=== PATIENT | male | born 1945 | race Caucasian/White ===

== ENCOUNTER 2016-10-12 20:29 | Emergency (ER) | payer MEDICARE, MEDICAID ==
[~2016-10-12] VITALS: Ht 177.8 cm; Wt 64.5 kg
[~2016-10-12 20:29] MED LIST: (None)3.5 GM OP; AMITRIPTYLIN100 MG OR; AMITRIPTYLIN100 MG PO; AMLODIPINE BESYL5 MG PO; AMLODIPINE10 MG PO; AVELOX400 MG OR; AZITHROMYCIN500 MG PO; BABY ASPIRIN81 MG OR; BACTRIM DS1 TAB PO; BACTROBAN2 % EX; BC FAST PAI1 OR; CIPRO500 MG PO; CIPROFLOXACN500 MG PO; CLARITHROMYC500 M1 PO; COMBIVENT IN; DIOVAN HCT160 MG/25 OR; DOXYCYCL HYC100 M4 PO; DUONEB IN; FLEXERIL OR; FLEXERIL PO; FLUZONE SPLT1 M1 IM; GENTAMICIN15 ML/BTL OP; LEVAQUIN750 MG PO; LORTAB 10-325 M1 TAB PO; LORTAB5 PO; LOVASTATIN40 MG PO; MILK OF MAG30 ML/UDC PO; MIRALAX3350 N1 PO; MOTRIN800 MG PO; MUCINEX600 MG PO; NAPROSYN500 MG OR; NAPROSYN500 MG PO; NAPROXEN500 MG PO; OMEPRAZOLE20 MG PO; ORPHENADRINE100 MG OR; OXY1; OXYCODONE5 M1 OR; PREDNISONE10 MG PO; PREDNISONE20 MG PO; PREVACID30 M1 OR; PRILOSEC20 MG OR; PRILOSEC20 MG PO; PRILOSEC20 MG/CAP PO; PROAIR HFA IN; SIMVASTATIN40 MG PO; TRAMADOL HCL50 MG PO; ULTRAM50 M1 PO; ZITHROMAX500 MG PO; ZOCOR20 MG OR; ZOFRAN ODT8 MG OR; ZPAK PO
[2016-10-12] MEDS ORDERED: AMLODIPINE5 MG PO (21:01)
[2016-10-12] MEDS ORDERED: PROAIR HFA IN (21:02)
[2016-10-12] MEDS ORDERED: PERCOCET 5/325M1 TAB PO (22:21)
[2016-10-12 22:29] VITALS: BP 122/85
== END 2016-10-12 22:29 | disposition home or self-care (01) ==
LOC: ED 20:29
DX: S96.912A Strain of unspecified muscle and tendon at ankle and foot level, left foot, initial encounter (principal); S90.512A Abrasion, left ankle, initial encounter; M79.672 Pain in left foot; W10.8XXA Fall (on) (from) other stairs and steps, initial encounter; Y92.009 Unspecified place in unspecified non-institutional (private) residence as the place of occurrence of the external cause; R22.41 Localized swelling, mass and lump, right lower limb

== ENCOUNTER 2017-05-13 11:18 | Day surgery (SDC) | payer MEDICARE, MEDICAID ==
[~2017-05-13] VITALS: Ht 177.8 cm; Wt 66.7 kg
[~2017-05-13 11:18] MED LIST changes: +AMLODIPINE5 MG PO; +PERCOCET 5/325M1 TAB PO; +[UNRECOGNIZED DRUG - REMARK]
[2017-05-13] MEDS ORDERED: LOVASTATIN40 M1 PO (13:31)
[2017-05-13] MEDS ORDERED: AMLODIPINE5 MG PO (13:31)
[2017-05-13 16:48] VITALS: BP 153/69
== END 2017-05-13 16:40 | disposition home or self-care (01) ==
LOC: ENDO 11:18 → ORM 11:18
PROVIDERS: ATTEND Internal Medicine Gastroenterology
PROC: 0DJD8ZZ Inspection of Lower Intestinal Tract, Via Natural or Artificial Opening Endoscopic (ICD-10-PCS; principal; 2017-05-13)
DX: Z12.11 Encounter for screening for malignant neoplasm of colon (principal); K64.4 Residual hemorrhoidal skin tags; K57.30 Diverticulosis of large intestine without perforation or abscess without bleeding; Q43.8 Other specified congenital malformations of intestine; I86.8 Varicose veins of other specified sites; K64.8 Other hemorrhoids; I10 Essential (primary) hypertension; I25.10 Atherosclerotic heart disease of native coronary artery without angina pectoris; E78.00 Pure hypercholesterolemia, unspecified; C91.10 Chronic lymphocytic leukemia of B-cell type not having achieved remission; I25.2 Old myocardial infarction; Z95.5 Presence of coronary angioplasty implant and graft; Z80.0 Family history of malignant neoplasm of digestive organs

== ENCOUNTER 2017-10-12 06:16 | Inpatient (IN) | payer MEDICARE, MEDICAID ==
[2017-10-12] VITALS (8 sets, daily range): BP systolic 122–156; BP diastolic 64–77
[~2017-10-12] VITALS: Ht 177.8 cm; Wt 64.0 kg
[~2017-10-12 06:16] MED LIST changes: +BC HEADACH1 PO; +EC ASPIRIN325 MG PO; +LOVASTATIN40 M1 PO
--- NOTE | 2017-10-12 06:20 | NUR ---
RECEIVED VIA EMS, C/O SOB.
[2017-10-12] MEDS ORDERED: NORVASC PO (06:34)
--- NOTE | 2017-10-12 06:46 | NUR ---
RESP AT BEDSIDE.
--- NOTE | 2017-10-12 06:49 | NUR ---
PORT CXR TAKEN.
[2017-10-12 06:52] LABS: BASO% 0 % (0-3); EOS% 0 % (0-8); HEMATOCRIT 42.1 % (39.0-50.0); IMMATURE GRANULOCYTES 0.2 % (0.0-1.0); MEAN CORPUSCULAR HGB 29.1 pG CALC (26.0-32.0); NEUT# 6.67 thou/uL (1.82-7.42); RED BLOOD COUNT 4.05 mill/uL (4.70-6.10); RED CELL DISTRI WIDTH 19.8 % (11.5-15.5)
--- NOTE | 2017-10-12 06:58 | NUR ---
RESP AT BEDSIDE, PLACING PT ON BI-PAP
--- NOTE | 2017-10-12 07:00 | NUR ---
REPORT TO NICOLE RIZZO.
[2017-10-12 07:09] LABS: ALBUMIN 4.1 g/dL (3.2-5.0); ALKALINE PHOSPHATASE 94 u/l (38-126); BILIRUBIN, TOTAL 0.4 mg/dL (0.0-1.4); BUN 12 mg/dL (8-23); BUN/CREATININE RATIO 23 (12-20 (CALC)); CHLORIDE 96 mmol/l (95-108); CREATININE 0.5 mg/dL (0.7-1.3); GFR > 60 ML/MIN (>=60 (CALC)); GFR FOR AFR.AMER. > 60 ML/MIN (>=60 (CALC)); POTASSIUM 4.9 mmol/l (3.5-5.1); SGOT/AST 44 u/l (19-48); SGPT/ALT 34 u/l (11-66); SODIUM 145 mmol/l (137-146); TOTAL PROTEIN 7.3 g/dL (6.3-8.2)
[2017-10-12 07:11] LABS: HEMOGLOBIN 11.8 g/dl (14.0-18.0)
--- NOTE | 2017-10-12 07:13 | NUR ---
PT CALM AND QUIET, RESP EVEN AND UNLABORED ON BIPAP MASK, LAB AT BEDSIDE FOR BC 2ND SET. NO COMPLAINTS INDICATED BY PT, AWAKENS EASILY TO VOICE AND RESPONDS APPROPRIATELY TO QUESTIONS WITH ORIENTATION X 3
[2017-10-12 07:15] LABS: ANION GAP 15 (6-22 (CALC)); CARBON DIOXIDE 39 mmol/l (22-30)
[2017-10-12 07:21] LABS: MYOGLOBIN 37 ng/mL (0 - 121)
[2017-10-12 07:22] LABS: PLATELET COUNT 144 thou/uL (130-400)
[2017-10-12 07:23] LABS: MANUAL DIFFERENTIAL YES
[2017-10-12 07:37] LABS: IMMATURE CELLS 10 %; PLATELET ESTIMATE NORMAL
--- NOTE | 2017-10-12 07:56 | NUR ---
AWAITING BED ASSIGNMENT, NO ACUTE CHANGE IN PT CONDITION, MACKENZIE BIPAP WELL AT THIS TIME.
[2017-10-12 08:02] LABS: INFLUENZA A POSITIVE (NONE DETECT); INFLUENZA B NONE DETECTED (NONE DETECT)
--- NOTE | 2017-10-12 08:16 | NUR ---
ATTEMPTED REPORT TO ICU, AWAITING RETURN CALL
--- NOTE | 2017-10-12 08:44 | NUR ---
Admission Note Report Given to: Asaf rn Transported by: Wheelchair x Stretcher Transported with: x Nurse Transporter x Patent IV x O2 x Ux Ui Designer
[2017-10-12 08:48] LABS: URINE BILIRUBIN - DIPSTICK NEGATIVE (NEGATIVE); URINE BLOOD DIPSTICK NEGATIVE (NEGATIVE); URINE COLOR YELLOW; URINE GLUCOSE - DIPSTICK NEGATIVE (NEGATIVE); URINE KETONE NEGATIVE (NEGATIVE); URINE LEUK ESTERASE NEGATIVE (NEGATIVE); URINE NITRITE - DIPSTICK NEGATIVE (Negative); URINE PROTEIN - DIPSTICK TRACE mg/dL (NEG-TRACE); URINE SPECIFIC GRAVITY >=1.030; URINE UROBILINOGEN - DIPSTICK 0.2 E.U./dL (0.2)
[2017-10-12 08:50] LABS: URINE CLARITY CLEAR
--- NOTE | 2017-10-12 09:00 | NUR ---
PT ARRIVES TO ICU-5 FROM ER, ACCOMPANIED BY NICOLE RIZZO.
--- NOTE | 2017-10-12 10:26 | NUR ---
RECEIVED REPORT FROM TEOFILO TO TAKE OVER PT CARE
--- NOTE | 2017-10-12 10:30 | NUR ---
PT REMAINS ON BIPAP WITH FIO2 OF 35%, RESTING WITH EYES CLOSED, AROUSES EASILY TO VERBAL STIMULI, REMINDED TO CALL FOR ASSISTANCE, CALL EVANS WITHIN REACH
--- NOTE | 2017-10-12 11:33 | NUR ---
PT LAYING IN BED RESTING WITH EYES CLOSED, AROUSES EASILY TO VERBAL STIMULI, BIPAP REMAINS ON PT WITH FI02 AT 35%, PT REMINDED TO CALL FOR ASSISTANCE, CALL EVANS WITHIN REACH
--- NOTE | 2017-10-12 12:35 | NUR ---
PT SITTING UP ON THE SIDE OF THE BED USING THE URINAL, NO S/S OF DISTRESS, PT REMAINS, ON BIPAP
--- NOTE | 2017-10-12 13:45 | NUR ---
PT LAYING IN BED WATCHING TV, DENIES ANY SOB, REMAINS ON BIPAP, CALL EVANS WITHIN REACH
--- NOTE | 2017-10-12 14:45 | NUR ---
VISITORS ABOUT BEDSIDE
--- NOTE | 2017-10-12 14:50 | NUR ---
BROTHER AT BEDSIDE, PT SITTING UP ON THE SIDE OF THE BED TALKING TO HIM, BIPAP REMAINS ON FI02 35%, NO S/S OF DISTRESS, CALL EVANS WITHIN REACH
--- NOTE | 2017-10-12 17:05 | NUR ---
PT VERALIZED HE HAS A HEADACHE, MADE AWARE, ORDERS GIVEN
--- NOTE | 2017-10-12 17:45 | NUR ---
R.T. AT BEDSIDE GIVING PT A BREATHING TREATMENT
--- NOTE | 2017-10-12 19:30 | NUR ---
PT RESTING IN BED. PT IS ALERT AND ORIENTED X3. PERRLA. RESP ARE EVEN AND UNLABORED. SOB ON EXERTION. NO DISTRESS NOTED. WHEEZING NOTED THROUGHOUT LUNG ANTERIORLY AND POSTERIORLY ON INHALATION AND EXHALATION. RT INTO ROOM. PT TAKEN OFF OF BIPAP AT THIS TIME AND PLACE ON O2 5L NC HI FLOW. PT O2 SATS 95-97%. HR REGULAR. SR-ST ON MONITOR. PULSES PALPABLE THROUGHOUT. NO EDEMA NOTED. BS ACTIVE. PT VOIDING VIA URINAL. #18 LAC EMS SITE IN LAC. SALINE LOCKED. NO REDNESS OR EDEMA NOTED. CALL LIGHT IN REACH. WILL CONTINUE TO MONITOR
--- NOTE | 2017-10-12 22:22 | NUR ---
INTO PT ROOM. PT STATES THAT HE IS SOB. HE IS 94% ON MONITOR AND ABLE TO HAVE FULL CONVERSQATION WITHOUT DYSPNEA AT THIS TIME. PT DEMANDING THAT BIPAP BE PLACED BACK ON. BIPAP PLACED BACK ON PT AT THIS TIME.
--- NOTE | 2017-10-12 23:50 | NUR ---
INTO ROOM. PT SITTING UP ON SIDE OF BED STATING THAT HE CANNOT BREATHE. O2 SATS REMAIN 93-96% ON BIPAP. PT HAD REMOVED BIPAP. PT PLACED BACK ON BIPAP. PT APPEARS TO BE ANXIOUS. QUESTIONED HISTORY OF ANXIETY PT STATES THAT HE DOES NOT KNOW IF HE HAS ANXIETY. WILL CONTINUE TO MONITOR
[2017-10-13] VITALS (19 sets, daily range): BP systolic 106–157; BP diastolic 62–81
--- NOTE | 2017-10-13 00:10 | NUR ---
PT MEDICATED TO HELP SLEEP.
--- NOTE | 2017-10-13 02:00 | NUR ---
PT RESTING IN BED WITH EYES CLOSED. RESP ARE EVEN AND UNLABORED ON BIPAP. NO DISTRESS NOTED. WILL CONTINUE TO MONITOR
--- NOTE | 2017-10-13 04:00 | NUR ---
PT RESTING IN BED WITH EYES CLOSED. RESP ARE EVEN AND [id number]. NO DSITRESS NOTED. REMAINS ON BIPAP. WILL CONTINUE TO MONITOR
--- NOTE | 2017-10-13 04:31 | NUR ---
LAB INTO DRAW AM LABS
[2017-10-13 05:33] LABS: ANION GAP 15 (6-22 (CALC)); BUN 28 mg/dL (8-23); BUN/CREATININE RATIO 44 (12-20 (CALC)); CALCULATED LDLCHOLESTEROL 95 mg/dL (62-129 (CALC)); CHLORIDE 92 mmol/l (95-108); CHOLESTEROL HDL RATIO 4.6 (<4.4 (CALC)); CREATININE 0.6 mg/dL (0.7-1.3); GFR > 60 ML/MIN (>=60 (CALC)); GFR FOR AFR.AMER. > 60 ML/MIN (>=60 (CALC)); HDL CHOLESTEROL 30 mg/dL (>=40); POTASSIUM 4.3 mmol/l (3.5-5.1); SODIUM 143 mmol/l (137-146); TOTAL CHOLESTEROL 140 mg/dl (0-199); TOTAL TRIGLYCERIDES 72 mg/dl (30-149); VLDL CHOLESTROL 14 mg/dl (0-38 (CALC))
[2017-10-13 05:53] LABS: HEMATOCRIT 38.4 % (39.0-50.0); HEMOGLOBIN 11.2 g/dl (14.0-18.0); MEAN CELL VOLUME 100.5 fL CALC (80.0-100.0); MEAN CORPUSCULAR HGB 29.3 pG CALC (26.0-32.0); MEAN CORPUSCULAR HGB CONC 29.2 g/L CALC (32.0-36.0); RED BLOOD COUNT 3.82 mill/uL (4.70-6.10); RED CELL DISTRI WIDTH 19.5 % (11.5-15.5)
[2017-10-13 05:57] LABS: CARBON DIOXIDE 40 mmol/l (22-30)
--- NOTE | 2017-10-13 06:18 | NUR ---
PT RESTING IN BED WITH EYES CLOSED. AROUSES EASILY TO VERBAL STIMULI. RESP ARE EVEN AND UNLABORED. REMAINS ON BIPAP. NO DISTRESS NOTED. WILL CONTINUE TO MONITOR
--- NOTE | 2017-10-13 06:46 | NUR ---
NEB TX NOT GIVEN. DOSE PREVIOUSLY GIVEN.
--- NOTE | 2017-10-13 07:05 | NUR ---
PT LAYING IN BED RESTING WITH EYES CLOSED, AROUSES EASILY TO VERBAL STIMULI, A & O X3, PERRL, HR 78, RESP. 24, BP 155/73, O2 96% ON BIPAP FIO2 35%, LUNG SOUNDS DIMINISHED IN BASES WITH WHEEZES THROUGH OUT, STRONG RADIAL PULSES AND PEDAL PULSES, 18G LAC IV, SALINE LOCKED, NO REDNESS OR DRAINAGE AT SITE, AM ASSESSMENT COMPLETE, SEE INTERVENTIONS, SAFETY MEASURES REINFORCED, CALL EVANS WITHIN REACH
--- NOTE | 2017-10-13 07:20 | NUR ---
BIPAP REMOVED, PT PLACED ON 5L HIGH FLOW O2, PT REMINDED TO TAKE SLOW DEEP BREATHS, PT VERBALIZED UNDERSTANDING, WILL CONTINUE TO MONITOR PT CLOSELY
--- NOTE | 2017-10-13 07:40 | NUR ---
PT'S SATS 88% ON 5L HIGH FLOW O2, PT STATES "I CAN'T BREATH. I NEED THE MASK (BIPAP) BACK ON, PT ENCOURAGED TO TAKE SLOW DEEP BREATHS, PT CONTINUED TO ASK FOR THE BIPAP TO BE PUT BACK ON, BIPAP PUT ON PT PER PT REQUEST
--- NOTE | 2017-10-13 08:25 | NUR ---
PT SITTING ON THE SIDE OF THE BED USING THE URINAL, PT TOLERATING WELL, CALL EVANS WITHIN REACH
--- NOTE | 2017-10-13 09:56 | NUR ---
PT LAYING IN BED RESTING WITH EYES CLOSED, AROUSES EASILY TO VERBAL STIMULI, REMINDED TO CALL FOR ASSISTANCE, CALL EVANS WITHIN REACH
--- NOTE | 2017-10-13 10:30 | NUR ---
VISITOR AT BEDSIDE
--- NOTE | 2017-10-13 10:55 | NUR ---
PT OFF BIPAP ON 5L HIGH FLOW NC, WILL CONTINUE TO MONITOR CLOSELY
--- NOTE | 2017-10-13 11:30 | NUR ---
DR SANTIZO AT BEDSIDE DISCUSSING PLAN OF CARE
--- NOTE | 2017-10-13 11:45 | NUR ---
SETUP ASSISTANCE PROVIDED WITH LUNCH TRAY
--- NOTE | 2017-10-13 12:22 | NUR ---
PT SITTING ON THE SIDE OF THE BED, PT IS RESTLESS, REMINDED TO CALL FOR ASSISTANCE, CALL EVANS WITHIN REACH
--- NOTE | 2017-10-13 13:30 | NUR ---
DAUGHTER AT BEDSIDE, PT SITTING ON THE SIDE OF THE BED TALKING TO DAUGHTER, O2 SATS 94% ON 5L HIGH FLOW NC
--- NOTE | 2017-10-13 14:15 | NUR ---
PT TO RADIOLOGY VIA WC ACCOMPANIED BY A NURSE
--- NOTE | 2017-10-13 14:25 | NUR ---
PT RETURNED TO UNIT FROM RADIOLOGY VIA WC, PT TOLERATED WELL
--- NOTE | 2017-10-13 15:35 | NUR ---
PT STANDING AT THE SIDE OF THE BED USING URINAL, PT STEADY ON HIS FEET, CALL EVANS WITHIN REACH
--- NOTE | 2017-10-13 16:20 | NUR ---
PT SITTING ON THE SIDE OF THE BED, ASSISTED WITH CHANGING SHORTS, PT TOLERATED WELL, PT REMAINS ON 4L HIGH FLOW NC
--- NOTE | 2017-10-13 20:00 | NUR ---
PT RESTING IN BED WITH EYES CLOSED, RESPIRATIONS EVEN AND UNLABORED ON HIGH FLOW OXYGEN VIA NC 4L, O2 SAT 97%. RESPONDS EASILY TO VERBAL COMMAND, DENIES PAIN OR DISCOMFORT. TEMP 98.0, HR 87 SR, B/P126/62. ENCOURAGED TO USE CALL LIGHT FOR ASSISTANCE, WILL CONTINUE TO MONITOR.
--- NOTE | 2017-10-13 22:15 | NUR ---
O2 SAT DOWN TO 84-85% ON HIGH FLOW NC 4L, VENTI MASK 40% APPLIED BY MIKA RT, O2 SAT UP TO 91%, WILL CONTINUE TO MONITOR.
--- NOTE | 2017-10-13 22:34 | NUR ---
PATIENT'S NURSE CALLED BECAUSE OF PATIENT' SPO2 WAS DROPPING TO 83% WHILE HE WAS ON 5L HIGH FLOW NC TO ASSIST WITH HIS FLOW DEMAND. SWITCHED OXYGEN DEVICE TO A VENTI MASK WITH 40% FIO2. SPO2 WENT DOWN ALSO TO 83%. PLACE ON BIPAP WITH THE SAME SETTING THAT WAS ORDERD FOR HIM. SPO2 WENT UP TO 95% ON BIPAP WITH PRESSURE 20/10, RATE OT 22, AND 35% FIO2. WILL CONTINUE TO MONITOR THE PATIENT THROUGHTOUT THE SHIFT.
--- NOTE | 2017-10-13 22:35 | NUR ---
WHILE ON VENTI MASK, O2 SAT DROPPED TO 83%, MIKA RT NOTIFIED AND PLACED PT ON BIPAP FIO2 AT 35%, O2 SAT UP TO 95%. CALL LIGHT IN REACH, PT IS DROWSY ABLE TO STATE NAME AND . WILL CONTINUE TO MONITOR.
--- NOTE | 2017-10-13 23:18 | NUR ---
O2 SAT 96% ON BIPAP FIO2 35%. RESTING WITH EYES CLOSED. CALL LIGHT IN REACH.
[2017-10-14] VITALS (16 sets, daily range): BP systolic 109–163; BP diastolic 60–88
--- NOTE | 2017-10-14 01:26 | NUR ---
RESTING WITH EYES CLOSED ON RIGHT SIDE, RESPIRATIONS EVEN AND UNLABORED ON BIPAP FIO2 35%. CALL LIGHT IN REACH.
--- NOTE | 2017-10-14 03:07 | NUR ---
RESTING WITH EYES CLOSED ON RIGHT SIDE, RESPIRATIONS EVEN AND UNLABORED ON BIPAP FIO2 35%, O2 SAT 96%. CALL LIGHT IN REACH.
--- NOTE | 2017-10-14 04:30 | NUR ---
NEW IV SITE STARTED TO LAC #22, AND LABS DRAWN AT THIS TIME, TOLERATED WELL. PT SITTING ON SIDE OF BED REQUESTING BIPAP TO BE REMOVED, MIKA RT REMOVED BIPAP AND PLACED PT HIGH FLOW O2 AT 4L VIA NC, O2 SAT 96% AT THIS TIME, COFFEE PROVIDED PER PT REQUEST.
[2017-10-14 05:04] LABS: HEMATOCRIT 39.4 % (39.0-50.0); HEMOGLOBIN 11.4 g/dl (14.0-18.0); MEAN CELL VOLUME 98.5 fL CALC (80.0-100.0); MEAN CORPUSCULAR HGB 28.5 pG CALC (26.0-32.0); MEAN CORPUSCULAR HGB CONC 28.9 g/L CALC (32.0-36.0); RED CELL DISTRI WIDTH 19.6 % (11.5-15.5)
[2017-10-14 05:11] LABS: BUN 30 mg/dL (8-23); BUN/CREATININE RATIO 43 (12-20 (CALC)); CHLORIDE 92 mmol/l (95-108); CREATININE 0.7 mg/dL (0.7-1.3); GFR > 60 ML/MIN (>=60 (CALC)); GFR FOR AFR.AMER. > 60 ML/MIN (>=60 (CALC)); MAGNESIUM 2.3 mg/dL (1.6-2.3); POTASSIUM 4.1 mmol/l (3.5-5.1); SODIUM 143 mmol/l (137-146)
[2017-10-14 05:17] LABS: ANION GAP 16 (6-22 (CALC)); CARBON DIOXIDE 39 mmol/l (22-30)
--- NOTE | 2017-10-14 07:02 | NUR ---
RECVD REPORT FROM PM NURSE. INTRODUCED SELF TO PT. PT AWAKE IN BED, DRINKING COFFEE. PT PREFERS TO USE URINAL. PT GIVEN A CUP FOR SPUTUM SAMPLE. BREATHING EVEN/UNLABORED. CRACKLES & WHEEZES THROUGHOUT LUNGS. PT TALKING/MOVING W/OUT ISSUE. DENIES PAIN. ONLY SKIN ABNORMALITY IS BRUISING BILATERAL ARMS. PT ON 4L HUMIDIFIED NC, STATES HE USES 3L NC AT HOME. PT OFF BIPAP FROM NIGHT BEFORE MY ARRIVAL DUE TO LOW O2 WHILE SLEEPING. ABD SOFT/NONTENDER, ACTIVE BS. PT A&Ox4. EYES PERRLA. NEURO WNL.
--- NOTE | 2017-10-14 07:57 | NUR ---
PT SITTING UP ON BEDSIDE EATING BREAKFAST. SPUTUM SAMPLE COLLECTED FOR LAB. PT HAS DEEP, WET, COUGH.
--- NOTE | 2017-10-14 09:15 | NUR ---
PT @ BEDSIDE FOR NEB TREATMENT. PT HAS 2 VISITORS @ BEDSIDE, WEARING MASKS.
--- NOTE | 2017-10-14 10:09 | NUR ---
TAURUS FROM CASE MANAGEMENT @ BEDSIDE. PT HAS 1 VISITOR.
--- NOTE | 2017-10-14 11:09 | NUR ---
PT REQUESTING PAIN MED FOR HEADACHE & COUGH MEDICINE FOR COUGH. MD AWARE.
--- NOTE | 2017-10-14 11:27 | NUR ---
MRSA CULTURE SENT TO LAB. PT MEDICATED FOR ESCOBEDO & COUGH. PT DENIES ADDITIONAL REQUESTS/CONCERNS AT THIS TIME.
--- NOTE | 2017-10-14 11:52 | NUR ---
PT UP TO SIDE OF BED, EATING LUNCH.
--- NOTE | 2017-10-14 15:18 | NUR ---
RT CALLED FOR O2 STATES BOUNCING BETWEEN 86%-90%. PT PLACED ON BIPAP.
--- NOTE | 2017-10-14 16:13 | NUR ---
PT SLEEPING COMFORTABLY IN BED, ON BIPAP MACHINE.
--- NOTE | 2017-10-14 17:28 | NUR ---
PT OFF BIPAP AFTER NEB TREATMENT. PT UP ON BEDSIDE EATING DINNER.
--- NOTE | 2017-10-14 18:57 | NUR ---
PT IN BED A/OX3 RESPIRATIONS EVEN AND UNLABORED ON HIGH FLOW O2 @4L VIA NC, O2 SAT 96%. DENIES PAIN OR DISCOMFORT. HEART MONITOR SR 88, B/P 153/88 TEMP 98.3. ENCOURAGED TO USE CALL LIGHT FOR ASSISTANCE, WILL CONTINUE TO MONITOR. URINAL AT BED SIDE.
--- NOTE | 2017-10-14 22:20 | NUR ---
RESTING IN SEMIFOWLERS WITH EYES CLOSED, RESPIRAITONS EVEN AND UNLABORED ON HIGH FLOW OXYGEN AT 4L VIA NC, O2 SAT 97% AT THIS TIME. CALL LIGHT IN REACH, WILL CONTINUE TO MONITOR.
[2017-10-15] VITALS (11 sets, daily range): BP systolic 114–148; BP diastolic 60–85
--- NOTE | 2017-10-15 | NUR ---
RESTING WITH EYES CLOSED, RESPONDS EASILY TO VERBAL COMMAND, SOLUMEDROL PROVIDED IV PER SEP, PT THEN SITTING ON SIDE OF BED REQUESTING A SNACK, DANIELA CAMPOVERDE AND JAYSON PROVIDED FEEDING HIMSELF WITH NO PROBLEM, RESPIRATIONS EVEN AND UNLABORED ON O2 @4L HIGH FLOW, O2 SAT 98%. CALL LIGHT IN REACH.
--- NOTE | 2017-10-15 02:10 | NUR ---
RESTING WITH EYES CLOSED, RESPIRATIONS EVEN AND UNLABORED ON O2 @4L HIGH FLOW O2 SAT 94%. CALL LIGHT IN REACH.
--- NOTE | 2017-10-15 04:21 | NUR ---
SITTING ON SIDE OF BED, COFFEE PROVIDED PER PT REQUEST, RESPIRATIONS EVEN AND UNLABORED ON HIGH FLOW OXYGEN AT 4L VIA NC, O2 SAT 91%. CALL LIGHT IN REACH.
--- NOTE | 2017-10-15 05:15 | NUR ---
MIKA RT DECREASED OXYGEN TO 2L VIA HIGHFLOW NC, O2 SAT 93%.
--- NOTE | 2017-10-15 07:05 | NUR ---
PT SITTING ON THE SIDE OF THE BED, TOLERATING WELL, PT VERBALIZES NO COMPLAINTS, HR 68, RESP. 20, BP 146/72, O2 93% ON 2L HIGH FLOW NC, COARSE LUNGS SOUNDS WITH WHEEZES THROUGH OUT, 22G RAC IV, SALINE LOCKED, NO REDNESS OR DRAINAGE AT SITE, STRONG RADIAL AND PEDAL PULSES, AM ASSESSMENT COMPLETE, SEE INTERVENTIONS, SAFETY MEASURES REINFORCED, CALL EVANS WITHIN REACH
--- NOTE | 2017-10-15 07:30 | NUR ---
SETUP ASSISTANCE PROVIDED WITH AM MEAL TRATolu
--- NOTE | 2017-10-15 08:20 | NUR ---
PT LAYING IN BED RESTING WITH EYES CLOSED, AROUSES EASILY TO VERBAL STIMULI, NO S/S OF DISTRESS, CALL EVANS WITHIN REACH
--- NOTE | 2017-10-15 09:45 | NUR ---
VISITORS AT BEDSIDE
--- NOTE | 2017-10-15 11:30 | NUR ---
SETUP ASSSITANCE PROVIDED WITH LUNCH
--- NOTE | 2017-10-15 12:10 | NUR ---
PT SITTING ON THE SIDE OF THE BED, TOLERATING WELL, PT VERBALIZES NO COMPLAINTS, O2 SATS 93% ON 2L HIGH FLOW NC, REMINDED TO CALL FOR ASSISTANCE, CALL EVANS WITHIN REACH
--- NOTE | 2017-10-15 13:20 | NUR ---
R.T. AT BEDSIDE GIVING A BREATHING TREATMENT
--- NOTE | 2017-10-15 14:35 | NUR ---
PT TALKING ON THE PORTABLE PHONE,NO S/S OF DISTRESS, CALL EVANS WITHIN REACH
--- NOTE | 2017-10-15 16:35 | NUR ---
PT LAYING IN BED, WATCHING TV, PT OFFERED TO GET SETUP TO GET WASHED, PT REFUSED, REMINDED TO CALL FOR ASSISTANCE, CALL EVANS WITHIN REACH
--- NOTE | 2017-10-15 16:50 | NUR ---
DR BRANDT AT BEDSIDE DISCUSSING PLAN OF CARE
--- NOTE | 2017-10-15 19:10 | NUR ---
awake. denies resp diff. o2 cont per nc. cardiac specialist shows sinus rhythm pvcs. #22 rac saline lock. po fluids taken well. voids per urinal. fall precautions cont.
--- NOTE | 2017-10-15 21:20 | NUR ---
restoril 15mg po given per request for sleep.
--- NOTE | 2017-10-15 22:00 | NUR ---
snack given per request.
[2017-10-16] VITALS (14 sets, daily range): BP systolic 98–155; BP diastolic 57–86
--- NOTE | 2017-10-16 00:01 | NUR ---
awakens easily. no distress. cardiac technologist shows sinus rhythm.
--- NOTE | 2017-10-16 02:00 | NUR ---
eyes closed. resps even & unlabored. no apparent distress.
--- NOTE | 2017-10-16 04:00 | NUR ---
eyes closed. no resp distress. o2 cont.
--- NOTE | 2017-10-16 06:07 | NUR ---
sitting on side of bed drinking coffee. denies c/o.
--- NOTE | 2017-10-16 07:10 | NUR ---
PT SITTING ON THE SIDE OF THE BED, TOLERATING WELL, PT DENIES ANY SOB OR PAIN, A & O X3, PERRL, HR 70, RESP. 20, BP 135/60, O2 95% ON 2L VIA HIGH FLOW NC, WHEEZES THROUGH OUT LUNGS, 22G RAC IV, SALINE LOCKED, NO REDNESS OR DRAINAGE AT SITE, STRONG RADIAL AND PEDAL PULSES, ACTIVE BOWEL MOVEMENTS, AM ASSESSMENT COMPLETE, SEE INTERVENTIONS, SAFETY MEASURES REINFORCED, CALL EVANS WITHIN REACH
--- NOTE | 2017-10-16 07:30 | NUR ---
SETUP ASSISTANCE PROVIDED WITH SELENA MCGREGOR
--- NOTE | 2017-10-16 08:10 | NUR ---
PT LAYING IN BED RESTING WITH EYES CLOSED, AROUSES EASILY TO VERBAL STIMULI, NO S/S OF DISTRESS, CALL EVANS WITHIN REACH
--- NOTE | 2017-10-16 09:25 | NUR ---
VISITORS AT BEDSIDE
--- NOTE | 2017-10-16 10:35 | NUR ---
PT STANDING AT THE SIDE OF THE BED USING THE URINAL, PT IS STEADY ON HIS FEET, TOLERATING WELL, REMINDED TO CALL FOR ASSISTANCE, CALL EVANS WITHIN REACH
--- NOTE | 2017-10-16 11:35 | NUR ---
SETUP ASSISTANCE PROVIDED WITH LUNCH
--- NOTE | 2017-10-16 12:10 | NUR ---
PT SITTING ON THE SIDE OF THE BED WATCHING TV, VERBALIZES NO COMPLAINS, CALL EVANS WITHIN REACH
--- NOTE | 2017-10-16 14:40 | NUR ---
PT SITTING UP ON THE SIDE OF THE BED, VERBALIZES NO COMPLAINTS, 2 CUPS OF COFFEE PROVIDED PER PT REQUEST, REMINDED TO CALL FOR ASSISTANCE, CALL EVANS WITHIN REACH
[2017-10-16 16:25] LABS: HEMATOCRIT 41.7 % (39.0-50.0); HEMOGLOBIN 11.5 g/dl (14.0-18.0); IMMATURE GRANULOCYTES 0.2 % (0.0-1.0); MEAN CELL VOLUME 99.8 fL CALC (80.0-100.0); MEAN CORPUSCULAR HGB 27.5 pG CALC (26.0-32.0); MEAN CORPUSCULAR HGB CONC 27.6 g/L CALC (32.0-36.0); PLATELET COUNT 148 thou/uL (130-400); RED BLOOD COUNT 4.18 mill/uL (4.70-6.10); RED CELL DISTRI WIDTH 20.7 % (11.5-15.5)
--- NOTE | 2017-10-16 16:35 | NUR ---
KE FISH BAIT PROCESSING SUPERVISOR AT BEDSIDE DISCUSSING PLAN OF CARE
[2017-10-16 16:46] LABS: ALBUMIN 4.3 g/dL (3.2-5.0); ALKALINE PHOSPHATASE 71 u/l (38-126); ANION GAP 17 (6-22 (CALC)); BILIRUBIN, TOTAL 0.6 mg/dL (0.0-1.4); BUN 21 mg/dL (8-23); BUN/CREATININE RATIO 34 (12-20 (CALC)); CARBON DIOXIDE 36 mmol/l (22-30); CHLORIDE 93 mmol/l (95-108); CREATININE 0.6 mg/dL (0.7-1.3); GFR > 60 ML/MIN (>=60 (CALC)); GFR FOR AFR.AMER. > 60 ML/MIN (>=60 (CALC)); POTASSIUM 4.5 mmol/l (3.5-5.1); SGOT/AST 19 u/l (19-48); SGPT/ALT 30 u/l (11-66); SODIUM 141 mmol/l (137-146)
--- NOTE | 2017-10-16 17:30 | NUR ---
VISITOR AT BEDSIDE, SETUP ASSISTANCE PROVIDED WITH PM MEAL, CALL EVANS WITHIN REACH
[2017-10-16 17:37] LABS: MANUAL DIFFERENTIAL YES
--- NOTE | 2017-10-16 19:10 | NUR ---
awake. denies resp distress. o2 cont per nc. threat monitoring analyst shows sinus rhythm. #22 rac saline lock. po fluids taken well. voids per urinal. fall precautions cont.
--- NOTE | 2017-10-16 22:00 | NUR ---
watching tv. no resp diff. no c/o voiced.
[2017-10-17 00:01] VITALS: BP 134/77
--- NOTE | 2017-10-17 00:01 | NUR ---
eyes closed. no distress. ekg monitor shows sinus rhythm.
[2017-10-17 02:00] VITALS: BP 122/71
--- NOTE | 2017-10-17 02:00 | NUR ---
resting quietly. resps even & unlabored. o2 cont.
[2017-10-17 04:00] VITALS: BP 114/56
--- NOTE | 2017-10-17 04:00 | NUR ---
awake. sitting on side of bed. denies c/o. no bm.
--- NOTE | 2017-10-17 04:50 | NUR ---
lab here. blood drawn.
[2017-10-17 05:23] LABS: BASO% 0 % (0-3); EOS% 0 % (0-8); HEMATOCRIT 39.5 % (39.0-50.0); HEMOGLOBIN 11.4 g/dl (14.0-18.0); IMMATURE GRANULOCYTES 0.2 % (0.0-1.0); LYMPH% 96 % (15-41); MEAN CORPUSCULAR HGB 28.6 pG CALC (26.0-32.0); MEAN CORPUSCULAR HGB CONC 28.9 g/L CALC (32.0-36.0); MONO% 1 % (2-13); NEUT# 6.12 thou/uL (1.82-7.42); NEUT% 3 % (42-76); PLATELET COUNT 136 thou/uL (130-400); RED BLOOD COUNT 3.99 mill/uL (4.70-6.10); RED CELL DISTRI WIDTH 20.1 % (11.5-15.5)
[2017-10-17 05:25] LABS: MANUAL DIFFERENTIAL YES
[2017-10-17 05:39] LABS: ALBUMIN 3.9 g/dL (3.2-5.0); ALKALINE PHOSPHATASE 64 u/l (38-126); ANION GAP 13 (6-22 (CALC)); BILIRUBIN, TOTAL 0.6 mg/dL (0.0-1.4); BUN 20 mg/dL (8-23); BUN/CREATININE RATIO 33 (12-20 (CALC)); CARBON DIOXIDE 39 mmol/l (22-30); CHLORIDE 92 mmol/l (95-108); CREATININE 0.6 mg/dL (0.7-1.3); GFR > 60 ML/MIN (>=60 (CALC)); GFR FOR AFR.AMER. > 60 ML/MIN (>=60 (CALC)); POTASSIUM 4.6 mmol/l (3.5-5.1); SGOT/AST 19 u/l (19-48); SGPT/ALT 29 u/l (11-66); SODIUM 139 mmol/l (137-146); TOTAL PROTEIN 6.6 g/dL (6.3-8.2)
[2017-10-17 06:00] VITALS: BP 137/78
--- NOTE | 2017-10-17 07:05 | NUR ---
PT SITTING UP IN THE BED WATCHING TV, VERBALIZES NO COMPLAINTS, A & O X3, PERRL, HR 78, RESP. 20, BP 133/89, O2 96% ON 3L HIGH FLOW NC, CLEAR LUNG SOUNDS IN THE RUL & DEVAN, CRACKLES IN THE RML, RLL, & LLL, STRONG RADIAL & PEDAL, 22 G RAC IV, SALINE LOCKED, NO REDNESS OR DRAINAGE AT SITE, AM ASSESSMENT COMPLETE, SEE INTERVENTIONS, SAFETY MEASURES REINFORCED, CALL EVANS WITHIN REACH
--- NOTE | 2017-10-17 07:30 | NUR ---
SETUP ASSISTANCE PROVIDED WITH SELENA MCGREGOR
--- NOTE | 2017-10-17 08:20 | NUR ---
PT SETTING UP ON THE SIDE OF THE BED, TOLERATING WELL, VERBALIZES NO COMPLAINTS, CALL EVANS WITHIN REACH
[2017-10-17 08:26] VITALS: BP 119/77
--- NOTE | 2017-10-17 09:05 | NUR ---
DR SANTIZO AT BEDSIDE DISCUSSING PLAN OF CARE AND POSSIBLE DISCHARGE
[2017-10-17] MEDS ORDERED: LEVAQUIN750 MG PO (09:09)
[2017-10-17] MEDS ORDERED: IPRATROPIU0.5 MG/3 M NEB (09:09)
[2017-10-17] MEDS ORDERED: PREDNISONE10 MG PO (09:09)
--- NOTE | 2017-10-17 10:35 | NUR ---
Discharge instructions given. Patient verbalizes understanding of same. Discharged in stable condition via Wheelchair to Home with family. All belongings sent with pt.
[2017-10-17 13:31] LABS: BAND 0 % (0-8)
== END 2017-10-17 10:35 | disposition home or self-care (01) | DRG 193 ==
LOC: ED 06:16 → ED-I 07:33 → ED 07:49 → ICU 07:50
PROVIDERS: Emergency Medicine; Hospitalist; Nurse Practitioner Family; ADMIT Internal Medicine; ATTEND Internal Medicine
PROC: 5A09457 Assistance with Respiratory Ventilation, 24-96 Consecutive Hours, Continuous Positive Airway Pressure (ICD-10-PCS; principal; 2017-10-12)
DX: J10.1 Influenza due to other identified influenza virus with other respiratory manifestations (principal); J96.21 Acute and chronic respiratory failure with hypoxia; C91.10 Chronic lymphocytic leukemia of B-cell type not having achieved remission; J96.22 Acute and chronic respiratory failure with hypercapnia; J44.1 Chronic obstructive pulmonary disease with (acute) exacerbation; Z99.81 Dependence on supplemental oxygen; F17.210 Nicotine dependence, cigarettes, uncomplicated; K59.00 Constipation, unspecified; F41.9 Anxiety disorder, unspecified
CPT/HCPCS: Q9967

== ENCOUNTER 2017-11-18 14:49 | Emergency (ER) | payer MEDICARE, MEDICAID ==
[~2017-11-18] VITALS: Ht 177.8 cm; Wt 63.6 kg
[~2017-11-18 14:49] MED LIST changes: +IPRATROPIU0.5 MG/3 M NEB; +NORVASC PO
[2017-11-18 15:36] VITALS: BP 103/66
== END 2017-11-18 15:36 | disposition home or self-care (01) ==
LOC: ED 14:49
DX: C95.90 Leukemia, unspecified not having achieved remission (principal); S40.021A Contusion of right upper arm, initial encounter; I11.9 Hypertensive heart disease without heart failure; F17.210 Nicotine dependence, cigarettes, uncomplicated; W10.9XXA Fall (on) (from) unspecified stairs and steps, initial encounter; Y92.009 Unspecified place in unspecified non-institutional (private) residence as the place of occurrence of the external cause; Z99.81 Dependence on supplemental oxygen

== ENCOUNTER 2018-11-22 14:19 | Emergency (ER) | payer MEDICARE, MEDICAID ==
[~2018-11-22] VITALS: Ht 177.8 cm; Wt 63.6 kg
[2018-11-22] MEDS ORDERED: PERMETHRIN5 % EX (14:41)
[2018-11-22] MEDS ORDERED: ALL DAY10 MG PO (14:41)
[2018-11-22 14:46] VITALS: BP 140/84
== END 2018-11-22 14:57 | disposition home or self-care (01) ==
LOC: ED 14:19
DX: B86 Scabies (principal); I10 Essential (primary) hypertension; F17.210 Nicotine dependence, cigarettes, uncomplicated

== ENCOUNTER 2019-01-11 16:46 | Observation (INO) | payer MEDICARE, MEDICAID ==
[~2019-01-11] VITALS: Ht 177.8 cm; Wt 67.7 kg
[~2019-01-11 16:46] MED LIST changes: +ALL DAY10 MG PO; +PERMETHRIN5 % EX
[2019-01-11 17:22] LABS: HEMATOCRIT 42.8 % (39.0-50.0); IMMATURE GRANULOCYTES 0.6 % (0.0-5.0); MEAN CELL VOLUME 94.7 fL CALC (80.0-100.0); MEAN CORPUSCULAR HGB CONC 32.7 g/L CALC (32.0-36.0); NEUT# 1.09 thou/uL (1.82-7.42); RED BLOOD COUNT 4.52 mill/uL (4.70-6.10); RED CELL DISTRI WIDTH 13.4 % (11.5-15.5)
[2019-01-11 17:45] LABS: GFR > 60 ML/MIN (>=60 (CALC)); GFR FOR AFR.AMER. > 60 ML/MIN (>=60 (CALC))
[2019-01-11 17:53] LABS: ALBUMIN 4.1 g/dL (3.2-5.0); ALKALINE PHOSPHATASE 61 u/l (38-126); ANION GAP 14 (6-22 (CALC)); BILIRUBIN, TOTAL 0.5 mg/dL (0.0-1.4); BUN 15 mg/dL (8-23); BUN/CREATININE RATIO 27 (12-20 (CALC)); CARBON DIOXIDE 32 mmol/l (22-30); CHLORIDE 99 mmol/l (95-108); CREATININE 0.5 mg/dL (0.7-1.3); GFR > 60 ML/MIN (>=60 (CALC)); GFR FOR AFR.AMER. > 60 ML/MIN (>=60 (CALC)); POTASSIUM 4.5 mmol/l (3.5-5.1); SGOT/AST 22 u/l (19-48); SODIUM 140 mmol/l (137-146); TOTAL PROTEIN 6.6 g/dL (6.3-8.2)
[2019-01-11 20:12] LABS: URINE BILIRUBIN - DIPSTICK NEGATIVE (NEGATIVE); URINE BLOOD DIPSTICK NEGATIVE (NEGATIVE); URINE COLOR YELLOW; URINE GLUCOSE - DIPSTICK NEGATIVE (NEGATIVE); URINE KETONE NEGATIVE (NEGATIVE); URINE LEUK ESTERASE NEGATIVE (NEGATIVE); URINE NITRITE - DIPSTICK NEGATIVE (Negative); URINE PH 6.5 (4.5-8.0); URINE PROTEIN - DIPSTICK NEGATIVE (NEG-TRACE); URINE SPECIFIC GRAVITY <=1.005; URINE UROBILINOGEN - DIPSTICK 0.2 E.U./dL (0.2)
[2019-01-11 21:00] VITALS: BP 125/76
[2019-01-12 00:05] VITALS: BP 147/75
[2019-01-12 04:30] VITALS: BP 150/78
[2019-01-12 07:39] VITALS: BP 118/71
[2019-01-12 07:42] VITALS: BP 118/71
== END 2019-01-12 11:00 | disposition left against medical advice (07) ==
LOC: ED 16:46 → ED-I 19:50 → ED 20:05 → MS2 20:06
PROVIDERS: Family Medicine; ADMIT Internal Medicine; ATTEND Internal Medicine
PROC: 009U3ZX Drainage of Spinal Canal, Percutaneous Approach, Diagnostic (ICD-10-PCS; principal; 2019-01-11)
DX: R05 Cough (principal); R50.9 Fever, unspecified; R91.8 Other nonspecific abnormal finding of lung field; M54.2 Cervicalgia; J44.0 Chronic obstructive pulmonary disease with (acute) lower respiratory infection; I10 Essential (primary) hypertension; C91.10 Chronic lymphocytic leukemia of B-cell type not having achieved remission; I25.10 Atherosclerotic heart disease of native coronary artery without angina pectoris; F17.210 Nicotine dependence, cigarettes, uncomplicated; Z99.81 Dependence on supplemental oxygen
CPT/HCPCS: Q9967

== ENCOUNTER 2019-03-23 16:00 | Emergency (ER) | payer MEDICARE, MEDICAID ==
[~2019-03-23] VITALS: Ht 177.8 cm; Wt 67.3 kg
[2019-03-23] MEDS ORDERED: CEPHALEXIN500 M1 PO (16:27)
[2019-03-23 16:36] VITALS: BP 154/82
== END 2019-03-23 16:37 | disposition home or self-care (01) ==
LOC: ED 16:00
DX: L03.115 Cellulitis of right lower limb (principal); I10 Essential (primary) hypertension; F17.210 Nicotine dependence, cigarettes, uncomplicated

== ENCOUNTER 2019-07-05 10:08 | Inpatient (IN) | payer MEDICARE, MEDICAID ==
[~2019-07-05] VITALS: Ht 177.8 cm; Wt 65.4 kg
[~2019-07-05 10:08] MED LIST changes: +CEPHALEXIN500 M1 PO
--- NOTE | 2019-07-05 10:10 | NUR ---
PT TO ROOM VIA WHEELCHAIR IN STABLE CONDITION.
[2019-07-05 10:50] LABS: HEMATOCRIT 43.3 % (39.0-50.0); HEMOGLOBIN 13.9 g/dl (14.0-18.0); IMMATURE GRANULOCYTES 0.5 % (0.0-5.0); MEAN CELL VOLUME 95.6 fL CALC (80.0-100.0); MEAN CORPUSCULAR HGB 30.7 pG CALC (26.0-32.0); MEAN CORPUSCULAR HGB CONC 32.1 g/L CALC (32.0-36.0); NEUT# 6.61 thou/uL (1.82-7.42); RED BLOOD COUNT 4.53 mill/uL (4.70-6.10); RED CELL DISTRI WIDTH 13.6 % (11.5-15.5)
[2019-07-05 11:02] LABS: ANION GAP 11 (6-22 (CALC)); BUN 17 mg/dL (8-23); BUN/CREATININE RATIO 30 (12-20 (CALC)); CARBON DIOXIDE 37 mmol/l (22-30); CHLORIDE 93 mmol/l (95-108); CREATININE 0.6 mg/dL (0.7-1.3); GFR > 60 ML/MIN (>=60 (CALC)); GFR FOR AFR.AMER. > 60 ML/MIN (>=60 (CALC)); POTASSIUM 4.4 mmol/l (3.5-5.1); SODIUM 136 mmol/l (137-146)
--- NOTE | 2019-07-05 11:10 | NUR ---
PT RESTING ON STRETCHER; NO S/S OF DISTRESS NOTED; O2 NC IN PLACE; VSS; IVF BOLUS AND IV ANTIBIOTICS INFUSING; PT ADVISED OF CONTINUED WAIT TIME; WILL CONTINUE TO MONITOR
--- NOTE | 2019-07-05 11:37 | NUR ---
Wheel Braider received call from ED [facility] [place] stating MD wanting to admit Patient for COPD - Using Indicia, Patient meets OBS for COPD as PO2 > 60 and PH 7.35. Only one reading of respirations yielding 26 upon admission. Oral temperature 100.5 Wheel Braider has advised OBSERVATIOANL status for admission.
--- NOTE | 2019-07-05 12:00 | NUR ---
PT RESTING ON STRETCHER; NO S/S OF DISTRESS NOTED; VSS; WILL CONTINUE TO MONITOR; WILL CONTINUE TO MONITOR
--- NOTE | 2019-07-05 13:00 | NUR ---
PT UPDATED ON POC AND PLAN TO ADMIT; DENIES ANY NEEDS AT THIS TIME; VSS; WILL CONTINUE TO MONITOR
--- NOTE | 2019-07-05 14:00 | NUR ---
PT RESTING ON STRETCHER; NO S/S OF DISTRSS NOTED; INFORMED OF CONTINUED WAIT TIME
[2019-07-05] MEDS ORDERED: BC FAST PAI1 PO (14:11)
[2019-07-05] MEDS ORDERED: BC FAST PAIN PO (14:12)
[2019-07-05 14:25] VITALS: BP 152/73
--- NOTE | 2019-07-05 14:25 | NUR ---
PT ADMITTED TO ICU BED 7 MS/OF. PT ADMAITTED FOR COPD. PT A&OX4, ABLE TO MAKE NEEDS KNOWN. PT TRANFERRED SELF FROM STRETCHER TO BED, STEADY GAIT. PT DENIES CP. PT SOB WITH EXERTION, SA02@94%ON 2LPM VIA NC, RESPIRATIONS EVEN/UNLABORED, WHEZZES THROUGHOUT. ABDOMEN SOFT, NON TENDER WITH BSX4 ACTIVE. LBM 12-17-19. PT STATES HE HAS BM Q 4-5 DAYS WITH USE OF LAX. NO EDEMA NOTED. PT ORIENTED TO UNIT, ROOM , BED AND CALL LIGHT SYSTEM. WILL MONITOR.
--- NOTE | 2019-07-05 14:29 | NUR ---
Admission Note Report Given to: SO DRIVER Transported by: Wheelchair X Stretcher Transported with: X Nurse Transporter X Patent IV X O2 X Rasper Machine Operator
--- NOTE | 2019-07-05 15:15 | NUR ---
FLU SWAB OBTAINED AND SENT TO LAB
--- NOTE | 2019-07-05 15:30 | NUR ---
CALLED DIETARY, SNACK GIVEN TO PT. PT TOLERATED WELL.
[2019-07-05 16:00] VITALS: BP 132/68
--- NOTE | 2019-07-05 16:36 | NUR ---
SANA FROM CM AT BEDSIDE TO EXPLAIN BENEFITS.
--- NOTE | 2019-07-05 19:00 | NUR ---
PATIENT LAYS WITH HOB 30 DEGREES. HE BEGINS TO COUGH NONSTOP AND BECOMES SOB, SPITS UP YELLOW FROTHY PHLEGM. EDUCATED ON PURSED LIP BREATHING. ON NC 2L/MIN, SATS FROM 92%-95%. VOIDED 225 ML IN URINAL, URINE IS YELLOW AND CLEAR, NO MAL ODOR. PATIENT IS ALERT AND ORIENTED X4. HEAD TO TOE NURSING ASSESSMENT PERFORMED, SEE CHARTING DOCUMENTATION. NO COMPLAINTS OF PAIN. LAC 20 G IV INTACT AND NS INFUSING AT 100 ML/HR. DISCUSSED POC FOR TONIGHT. PT REPORTS HE HAS A BM EVERY 4-5 DAYS AND TAKES CHEWABLE LAXATIVES, LAST BM WAS 07/02/19. AFIB ON TELEMETRY, HR RANGES 70'S WITH OCC. PVC'S. CALL LIGHT WITHIN REACH. WILL CONTINUE TO MONITOR.
--- NOTE | 2019-07-05 19:20 | NUR ---
RT CALLED FOR PATIENT'S SCHEDULED BREATHING TX. PATIENT SOB AND WHEEZY.
--- NOTE | 2019-07-05 19:30 | NUR ---
REPORT GIVEN TO NURSE MORALES. PATIENT WILL BE TRANSFERRED TO MED/SURGE FLOOR.
[2019-07-05 20:00] VITALS: BP 134/62
--- NOTE | 2019-07-05 20:15 | NUR ---
PATIENT GIVEN SCHEDULED PREDNISONE AND DISCUSSED MEDICATIONS HE WILL BE RECEIVING TONIGHT. NO SOB NOTED, NO RESPIRATORY DISTRESS NOTED. PATIENT HAS NO COMPLAINTS. ALSO NOTIFIED PATIENT THAT HE WILL BE MOVING TO MED/SURG SOON, PATIENT UNDERSTANDS AND AGREES.
[2019-07-05 21:44] VITALS: BP 136/70
--- NOTE | 2019-07-05 21:44 | NUR ---
PT. RECEIVED FROM ICU VIA W/C ACCOMPANIED BY ICU NURSE, SO MO. PT. IS A/A/OX3 AND HAS STEADY GAIT. O2 INFUSING PER NC PER ORDER AND PER PT. HE USES HOME O2; SPO2 91% AT THIS TIME. PT. WITH MOIST COUGH, REPORTING IT IS PRODUTIVE, NONE TO INSPECT AT THIS TIME. PT. 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 SCABS NOTED TO BLE; INTACT. PT. REPORTS LAST BM 07/02/19 AND DECLINES MOM AT THIS TIME. PT. REPORTS HE WILL TAKE SOME IF HE DOES NOT GO IN THE NEXT TWO DAYS THEN MAYBE HE WILL THEN. BS ACTIVE AND REPORTS PASSING GAS. ORIENTED TO ROOM, CALL LIGHT, AND POC; VERBALIZES UNDERSTANDING. ENCOURAGED TO CALL FOR ANY NEEDS. URINAL PLACED AT BEDSIDE AND INSTRUCTED TO USE FOR ALL VOIDS. CALL LIGHT IS IN REACH.
--- NOTE | 2019-07-05 21:50 | NUR ---
PATIENT SAFELY TRANSFERRED TO ROOM 283 VIA WC ON 2L/MIN NC. ALL BELONGINGS TAKEN WITH PATIENT. NO ACUTE DISTRESS SHOWN.
--- NOTE | 2019-07-05 23:48 | NUR ---
PT. RESTING IN BED WITH EYES CLOSED AND O2 INFUSING PER NC PER ORDER; CALL LIGHT IS IN REACH. WILL CONTINUE TO MONITOR.
[2019-07-06 00:03] VITALS: BP 123/63
--- NOTE | 2019-07-06 01:57 | NUR ---
PT. RESTING IN BED WITH EYES CLOSED; RESP. EVEN AND UNLABORED. CALL LIGHT IS IN REACH.
[2019-07-06 04:31] VITALS: BP 157/75
[2019-07-06 07:50] VITALS: BP 120/69
--- NOTE | 2019-07-06 07:50 | NUR ---
PT RESTING IN BED, NO SIGNS OF DISTRESS NOTED, RESP EVEN AND UNLABORED. PT ALERT AND ORIENTED X3. PT HAS PRODUCTIVE COUGH, DISCUSSED POC, PT C/O HEADACHE 12/25. WILL RETURN WITH TYLENOL. PT STATES HIS LAST BM 07/02. OFFERED PT MOM AND WARM PRUNE JUICE PT STATES HE WOULD TAKE. ASSESSMENT COMPLETED, CALL LIGHT IN REACH,CONTINUE TO MONITOR.
--- NOTE | 2019-07-06 11:58 | NUR ---
PT SITTING ON SIDE OF BED EATING LUNCH, PT VOICES NO NEEDS OR COMPLAINTS AT THIS TIME, CALL LIGHT IN REACH,CONTINUE TO MONITOR.
[2019-07-06 12:04] VITALS: BP 127/64
--- NOTE | 2019-07-06 14:50 | NUR ---
DR. GREGG AND BODY PIERCER AT BEDSIDE TO DISCUSS POC, DISCUSSED POSSIBLE HX OF AFIB, EKG ORDERED TO CONFIRM. DISCUSSED STARTING ELIQUIS. PT VERBALIZED UNDERSTANDING. CALL LIGHT IN REACH,CONTINUE TO MONITOR.
[2019-07-06 15:15] VITALS: BP 136/57
--- NOTE | 2019-07-06 15:52 | NUR ---
REPEAT EKG OBTAINED, DR. GREGG REVIEWED.
[2019-07-06 18:45] VITALS: BP 121/60
--- NOTE | 2019-07-06 20:00 | NUR ---
PATIENT RESTING IN BED WITH HOB ELEVATED WITH O2 VIA NASAL CANNULA IN PLACE. PATIENT IS AWAKE ALERT AND ORIENTEDX3. PATIENT WITH PRODUCTIVE COUGH WITH WHITE SPUTUM NOTED. PATIENT IS O2 DEPENDANT AT HOME. NEB TREATMENT PROVIDED ORDERED. PATIENT WITH IV SITE TO LAC WITH IVF NS PATENT AND INFUSING AT 100CC/HR. SITE APPEARS HEALTHY. PATIENT ON CONTACT PRECAUTIOONS FOR HX OF MRSA. TELE MONITOR IN PLACE. CALL LIGHT IN REACH. WILL CONT TO MONITOR.
--- NOTE | 2019-07-06 21:30 | NUR ---
PATIENT RESTING IN BED. GUIDO BALDWIN ORDERED. PATIENT GIVEN MIRALAX FOR CONSTIPATION. VOIDED BRANDY URINE IN URINAL. SAFETY PRECAUTIONS IN PLACE. CALL LIGHT IN REACH. WILL CONT TO MONITOR.
--- NOTE | 2019-07-06 23:47 | NUR ---
PATIENT RESTING IN BED WITH O2 VIA NASAL CANNULA IN PLACE APPEARS SLEEPING WITH EYES CLOSED. AZACTAM INFUSING ORDERED. CALL LIGHT IN REACH. WILL CONT TO MONITOR.
[2019-07-07] VITALS: BP 129/67
--- NOTE | 2019-07-07 02:14 | NUR ---
[facility]AB NEG-FINAL REPORT. PATIENT REMOVED FROM CONTACT ISOLATION. PATIENT RESTING WITH O2 VIANASAL CANNULA IN PLACE. CALL LIGHT IN REACH. WILL CONT TOMONITOR.
--- NOTE | 2019-07-07 02:56 | NUR ---
PATIENT APPEARS SLEEPING WITH EYES CLOSED AND O2 VIA NASAL CANNULA IN PLACE. TELE MONITOR IN PLACE. IVF PATENT ANDINFUSING VIA LAC SITE AT 100CC/HR. SITE APPEARS HEALTHY AT THIS TIME. CALL LIGHT IN REACH. WILL CONT TO MONITOR.
--- NOTE | 2019-07-07 03:42 | NUR ---
PATIENTCALLED FOR NEB TREATMENT-PRODUCTIVE COUGH. RT CALLED AND ARE HERE FOR NEB TREATMENT NOW. SOB AND TACHYPENIC DURING THESE COUGHT EPISODES. VOIDED 200CC OF BRANDY URINE IN URINAL. CALL LIGHT IN REACH. WILL CONT TO MONITOR.
[2019-07-07 04:00] VITALS: BP 127/60
[2019-07-07 05:55] LABS: HEMATOCRIT 37.9 % (39.0-50.0); HEMOGLOBIN 12.1 g/dl (14.0-18.0); IMMATURE GRANULOCYTES 0.6 % (0.0-5.0); MEAN CELL VOLUME 96.4 fL CALC (80.0-100.0); MEAN CORPUSCULAR HGB 30.8 pG CALC (26.0-32.0); MEAN CORPUSCULAR HGB CONC 31.9 g/L CALC (32.0-36.0); NEUT# 5.23 thou/uL (1.82-7.42); RED BLOOD COUNT 3.93 mill/uL (4.70-6.10); RED CELL DISTRI WIDTH 13.6 % (11.5-15.5)
[2019-07-07 06:20] LABS: ANION GAP 7 (6-22 (CALC)); BUN 13 mg/dL (8-23); BUN/CREATININE RATIO 33 (12-20 (CALC)); CARBON DIOXIDE 37 mmol/l (22-30); CHLORIDE 98 mmol/l (95-108); CREATININE 0.4 mg/dL (0.7-1.3); GFR > 60 ML/MIN (>=60 (CALC)); GFR FOR AFR.AMER. > 60 ML/MIN (>=60 (CALC)); MAGNESIUM 2.2 mg/dL (1.6-2.3); SODIUM 138 mmol/l (137-146)
--- NOTE | 2019-07-07 07:16 | NUR ---
Vancomycin consult Age: 74 yo Serum creatinine: 1 mg/dL (rounded) Height: 70.0 Inches Weight (kg): 65.4 IBW (kg): 73.00 Dosing wt(kg): 65.4 Estimated Creatinine clearance (ml/min): 59.0 Vd (liters): 45.8 (factor used: 0.7 L/kg) Mike (hr-1): 0.053 Half life (hrs): 13.08 Vancomycin 750 mg q 12 hrs starting at 0900 today with an expected Cpeak of 33 mcg/ml and an expected Ctrough of 19 mcg/ml. trough on 07/08/19 at 2030
[2019-07-07 07:48] VITALS: BP 120/70
--- NOTE | 2019-07-07 07:48 | NUR ---
PT RESTING IN BED. A&O X3. NO DISTRESS NOTED. O2 NC @2 L. COUGH NOTED, SPUTUM COLLECTED. PT VOICED CONCERNS ABOUT NOT HAVING A BM. MOM, PRUNE JUICE AND MIRALAX GIVEN. NO OTHER CONCERNS BY THE PT AT THIS TIME. DISCUSSED POC. ASSESSMENT COMPLETED AT THIS TIME. CALL LIGHT IN REACH. CONTINUE TO MONITOR.
--- NOTE | 2019-07-07 09:04 | NUR ---
IV VANCO INITIATED
[2019-07-07 11:00] VITALS: BP 154/70
--- NOTE | 2019-07-07 11:50 | NUR ---
PT SITTING ON THE SIDE OF THE BED EATING LUNCH. NO DISTRESS AT THIS TIME. CALL LIGHT IN REACH CONTINUE TO MONITOR.
[2019-07-07 15:16] VITALS: BP 111/65
--- NOTE | 2019-07-07 16:36 | NUR ---
PT SITTING IN BED WATCHING TV. NO DISTRESS NOTED. NO NEEDS AT THIS TIME. CONTINUE TO MONITOR.
--- NOTE | 2019-07-07 18:31 | NUR ---
PT SITTING IN BED WATCHING TV. NO DISTRESS NOTED. NO NEEDS AT THIS TIME. CALL LIGHT IN REACH. CONTINUE TO MONITOR.
--- NOTE | 2019-07-07 19:30 | NUR ---
PATIENT RESTING IN BED WITH HOB ELEVATED AND O2 VIA NASAL CANNULA IN PLACE. AWAKE ALERT AND ORIENTEDX3. STATES THAT HE IS FEELING SOME BETTER. COUGH HAS IMPROVED. LESS WHEEZING. TELE MONITOR IN PLACE. IV SITE TO LAC INTACT WITH IVF NS PATENT AND INFUSING AT 100CC/HR. SITE IS HEALTHY AT THIS ITME. VOIDING QS BRANDY URINE IN URINAL. STILL NO BM-PROVIDED WITH WARM PRUNE JUICE. SAFETY PRECAUTIONS REINFORCED. CALL LIGHT IN REACH. WILL CONT TO MONITOR.
[2019-07-07 21:08] VITALS: BP 127/63
--- NOTE | 2019-07-07 22:53 | NUR ---
PATIENT WITH SEVERE COUGHING EPISODE COUGHING UP THICK WHITE SPUTUM. RT CALLED AND ARE HERE FOR NEB TREATMENT. CALL LIGHT IN REACH. WILL CONT TO MONITOR.
[2019-07-08] VITALS (7 sets, daily range): BP systolic 137–163; BP diastolic 62–83
--- NOTE | 2019-07-08 02:23 | NUR ---
PATIENT APPEARS SLEEPING WITH HOB ELEVATED AND O2 VIA NASAL CANNULA IN PLACE. IVF PATENT AND INFUSING VIA LAC SITE AT 100CC/HR. TELE MONITOR IN PLACE. CALL LIGHT IN REACH. WILL CONT TO MONITOR.
--- NOTE | 2019-07-08 05:21 | NUR ---
PATIENT RESTING IN BED SOB AND COUGHING. RT CALLED AND NEB TREATMENT BEING PROVIDED. IVF NS PATENT AND INFUSING AT 100CC/HR VIA LAC SITE. O2 VIA NASAL CANNULA IN PLACE. TELE MONITOR IN PLACE. VOIDING CLEAR YELLOW URINE IN URINAL. CALL LIGHT IN REACH. WILL CONT TO MONITOR.
--- NOTE | 2019-07-08 07:45 | NUR ---
ASSESSMENT IS COMPLETED: IV SITE IS FREE FROM REDNESS OR EDEMA. HR IS REG,PULSES ARE STRONG X4, ABD IS SOFT WITH ACTIVE BS . BREATH SOUNDS ARE DIMINISHED. O2 @ 2LITERS WITH NC. TELE MONTIOR IN PLACE.
--- NOTE | 2019-07-08 12:20 | NUR ---
PT IS RELAXING IN BED WITH NO DISTRESS NOTED. HAS AMBULATED TO THE BATHROOM WITH OUT ANY DIFFICULTY
--- NOTE | 2019-07-08 16:00 | NUR ---
PT IS RELAXING IN BED, INQUIRD ABOUT BREATHING TX.
--- NOTE | 2019-07-08 16:55 | NUR ---
SPOKE WITH MERA WOLFF RE: CPT ON PT WILL CHECK ON THIS.
--- NOTE | 2019-07-08 18:51 | NUR ---
SPOKE WITH MIKA WOLFF RE: THE CPT ORDER THAT WAS PLACED YESTERDAY. WILL RECHECK THE ORDER
--- NOTE | 2019-07-08 19:30 | NUR ---
PATIENT RESTING IN BED WITH O2 VIA NASAL CANNULA IN PLACE. PATIENT IS AWAKE ALERT AND ORIENTEDX3. STATES THE HE CONT TO FEEL BETTER. STILL WITH PRODUCTIVE COUGH AT TIMES. TELE MONITOR IN PLACE. PATIENT HAD BM'S TODAY. SAFETY PRECAUTIONS REINFORCED. CALL LIGHT IN REACH. WILL CONT TO MONITOR.
--- NOTE | 2019-07-08 21:36 | NUR ---
VSNCO TROUGH IS 5-VANCO HUNG ORDERED AND INFUSING VIA LAC IV SITE. VOIDING BRANDY URINE IN URINAL. APPEARS SLEEPING WITH HOB ELEVATED, O2 IN PLACE AND EYES CLOSED. CALL LIGHT IN REACH. WILL CONT TO MONITOR.
--- NOTE | 2019-07-09 01:00 | NUR ---
PATIENT RESTING IN BED AT THIS TIME WITH O2 VIA NASAL CANNULA IN PLACE-EYES CLOSED AND APPEARS SLEEPING. TELE MONITOR IN PLACE. IVF PATENT ANDINFUSING VIA LEFT AC SITE. LESS RESP DISTRESS TONIGHT, LESS COUGHING. CALL LIGHT IN REACH. WILL CONT TO MONITOR.
[2019-07-09 03:40] VITALS: BP 146/77
--- NOTE | 2019-07-09 04:10 | NUR ---
RECIEVED CALL FROM ZELALEM ALEJANDRO IN [facility] THAT THE PATIENT CHANGE RHYTM TO A-FIB RVR-130. RESPONDED TO PATIENT ROOM. PATIENT WAS JUST UP TO VOID 200CC OF CLEAR YELLOW URINE. PATIENT WITH NO COMPLAINTS. DENIES ANY CHEST PAIN, PALPATATIONS OR INCREASED SOB. SKIN IS WARM AND DRY. VS [id number]-DK-182/77, HR-96. EKG DONE AT BEDSIDE. CONFIRMS A-FIB RATE 96. PATIENT WITH HISTORY OF A-FIB AND RECENTLY STARTED ON ELIQUIS. PATIENT WITH O2 ON AND TELE MONITOR IN PLACE. SAFETY PRECAUTIONS REINFORCED. CALL LIGHT IN REACH. WILL CONT TO MONITOR.
--- NOTE | 2019-07-09 06:23 | NUR ---
RECIEVED CALL AGAIN FROM ER THAT PATIENT IS A-FIB RVR 120'S. IN AND OUT OF RVR. SPOKE TO DR. ALBERT AND RECIEVED NEW ORDER FOR METOPROLOL 50MG PO-WILL MEDICATE SOON PROFILED ON EMAR. WILL CONT TOO MONITOR.
--- NOTE | 2019-07-09 07:31 | NUR ---
Vancomycin consult Weight: 65 Kilograms Current dose being given: 750 mg Current dosing interval: 12 hrs Current infusion time (hrs): 2 Trough level obtained: 5 mcg/ml Timing of trough - # of hrs before next dose: 0.5 Hrs New rate constant (cassandra): 0.127 hr-1 Half-life: 5.46 Hours Vd from levels: 45.50 Liters (0.7 L/kg) CLvanco= 5.779 L/hr Vancomycin 1000 mg q 8 hrs starting at 0900 today Infuse over 2 hrs Expected Cpeak: 30 mcg/mL Expected Ctrough: 15 mcg/mL next trough 07/10/19 at 0830
[2019-07-09 07:40] VITALS: BP 138/85
--- NOTE | 2019-07-09 07:40 | NUR ---
ASSESSMENT IS COMPLETED: IV SITE IS FREE FROM REDNESS OR EDEMA. HR IS IRREG,PULSES ARE STRONG X4, ABD IS SOFT WITH ACTIVE BS. BREATH SOUNDS ARE CLEAR,BILATERALLY, NO C/O SOB. TELE MONTIOR IN PLACE.
[2019-07-09 10:39] VITALS: BP 108/75
--- NOTE | 2019-07-09 12:15 | NUR ---
PT IS RELAXING IN BED NO FURTHER BMS TODAY. WILL TAKE SOMETHING AT HOME. WANTS TO GO HOME. TODAY.
--- NOTE | 2019-07-09 15:15 | NUR ---
ASSUMED CARE. NO APPARENT DISTRESSED NOTED. PT EAGAR TO GO HOME. AWAITING DISCHARGE ORDERS.
[2019-07-09 15:51] VITALS: BP 126/78
[2019-07-09] MEDS ORDERED: MEDDOSEPAK PO (15:56)
[2019-07-09] MEDS ORDERED: AVIDOXY100 MG PO (15:56)
[2019-07-09] MEDS ORDERED: ELIQUIS5 MG PO ×2 (15:59→16:13)
--- NOTE | 2019-07-09 16:13 | NUR ---
IV site discontinued, cath intact. No edema , no redness, voices no discomfort.
--- NOTE | 2019-07-09 16:16 | NUR ---
Discharge instructions given. Patient verbalizes understanding of same. Discharged in stable condition via Wheelchair to Home with staff. All belongings sent with pt.
== END 2019-07-09 16:17 | disposition home or self-care (01) | DRG 193 ==
LOC: ED 10:08 → ED-I 11:25 → ED 11:51 → ICU 11:52 → MS2 17:03
PROVIDERS: Family Medicine; Nurse Practitioner Family; ADMIT Internal Medicine; ATTEND Internal Medicine
DX: J18.9 Pneumonia, unspecified organism (principal); J96.22 Acute and chronic respiratory failure with hypercapnia; J96.21 Acute and chronic respiratory failure with hypoxia; J44.1 Chronic obstructive pulmonary disease with (acute) exacerbation; C91.10 Chronic lymphocytic leukemia of B-cell type not having achieved remission; J44.0 Chronic obstructive pulmonary disease with (acute) lower respiratory infection; I48.0 Paroxysmal atrial fibrillation; I10 Essential (primary) hypertension; F17.210 Nicotine dependence, cigarettes, uncomplicated; K59.00 Constipation, unspecified; I25.2 Old myocardial infarction; Z92.21 Personal history of antineoplastic chemotherapy; Z99.81 Dependence on supplemental oxygen
CPT/HCPCS: J1650; J3370; S0073

== ENCOUNTER 2019-09-20 10:01 | Inpatient (IN) | payer MEDICARE, MEDICAID ==
[~2019-09-20] VITALS: Ht 177.8 cm; Wt 68.0 kg
[~2019-09-20 10:01] MED LIST changes: +AVIDOXY100 MG PO; +BC FAST PAI1 PO; +BC FAST PAIN PO; +ELIQUIS5 MG PO; +MEDDOSEPAK PO
--- NOTE | 2019-09-20 10:15 | NUR ---
PATIENT TO ROOM VIA WHEELCHAIR AND PHYSICIAN AT BEDSIDE FOR EVAL
[2019-09-20] MEDS ORDERED: IMBRUVICA PO (10:43)
[2019-09-20] MEDS ORDERED: LOSARTAN POTASS25 MG PO (10:44)
[2019-09-20] MEDS ORDERED: DILT-XR120 MG PO (10:44)
[2019-09-20] MEDS ORDERED: PROAIR HFA108 MCG/AC IN (10:45)
[2019-09-20 10:48] LABS: IMMATURE GRANULOCYTES 2.2 % (0.0-5.0); MEAN CELL VOLUME 94.1 fL CALC (80.0-100.0); MEAN CORPUSCULAR HGB CONC 31.8 g/L CALC (32.0-36.0); PLATELET COUNT 173 thou/uL (130-400); RED BLOOD COUNT 4.74 mill/uL (4.70-6.10); RED CELL DISTRI WIDTH 13.1 % (11.5-15.5)
[2019-09-20 10:50] LABS: HEMATOCRIT 44.6 % (39.0-50.0); HEMOGLOBIN 14.2 g/dl (14.0-18.0)
--- NOTE | 2019-09-20 10:50 | NUR ---
PATIENT NOTED TO HAVE COUGH, DIMINISHED LUNG SOUNDS TO LEFT LUNG AND WHEEZING TO RIGHT LUNG. PATIENT MEDICATED PER MD ORDER.
[2019-09-20 11:15] LABS: ALBUMIN 4.2 g/dL (3.2-5.0); ALKALINE PHOSPHATASE 67 u/l (38-126); ANION GAP 15 (6-22 (CALC)); BUN 23 mg/dL (8-23); BUN/CREATININE RATIO 29 (12-20 (CALC)); CARBON DIOXIDE 33 mmol/l (22-30); CHLORIDE 93 mmol/l (95-108); CREATININE 0.8 mg/dL (0.7-1.3); GFR > 60 ML/MIN (>=60 (CALC)); GFR FOR AFR.AMER. > 60 ML/MIN (>=60 (CALC)); POTASSIUM 4.2 mmol/l (3.5-5.1); SODIUM 137 mmol/l (137-146); TOTAL PROTEIN 7.2 g/dL (6.3-8.2)
[2019-09-20 11:17] LABS: BILIRUBIN, TOTAL 0.9 mg/dL (0.0-1.4); SGOT/AST 43 u/l (19-48)
[2019-09-20 11:27] LABS: MYOGLOBIN 181 ng/mL (0 - 121)
--- NOTE | 2019-09-20 11:53 | NUR ---
REPORT CALLED TO YENNY ACEVES.
--- NOTE | 2019-09-20 12:45 | NUR ---
PT ARRIVED FROM ER VIA STRETCHER ACCOMPANIED BY STAFF.
--- NOTE | 2019-09-20 12:45 | NUR ---
PATIENT TRANSPORTED TO [facility] WITH O2 IN PLACE AND ANITBIOTIC TO CONTINUE TO INFUSE ON MEDSUR. STAFF INFORMED OF PATIENT ARRIVAL TO ROOM. BELONGINGS SENT UP TO ROOM WITH PATIENT.
[2019-09-20 12:50] VITALS: BP 140/68
[2019-09-20 12:58] LABS: MANUAL DIFFERENTIAL YES
[2019-09-20 12:59] LABS: BAND 15 % (0-8); IMMATURE CELLS 0 %
--- NOTE | 2019-09-20 13:15 | NUR ---
ASSESSMENT IS COMPLETED: IV SITE IS FREE FROM REDNESS OR EDEMA. HR IS REG,PULSES ARE STRONG X4, ABD IS SOFT WITH ACTIVE BS. BREATH SOUNDS ARE WHEEZING, COARSE AND DIMINISHED. O2 @ 2LITERS WITH NC. CONTINUE TO OBSERVE AND MONITOR.
--- NOTE | 2019-09-20 13:30 | NUR ---
BRUISING NOTED ON ARMS.
[2019-09-20 16:05] VITALS: BP 129/73
[2019-09-20 18:35] VITALS: BP 131/74
--- NOTE | 2019-09-20 20:21 | NUR ---
PT MEDICATED ORDERS PROVIDE AND ASSESSMENT COMPLETED AT THIS TIME. DENIES ANY OTHER NEEDS. LOW FOWLERS POSITION WATCHING TV.
--- NOTE | 2019-09-21 01:30 | NUR ---
PT CALLED FOR BREATHING TREATMENT, RESP NOTIFIED AND W/PT AT THIS TIME FOR PRN BREATHING TREATMENT
[2019-09-21 04:05] VITALS: BP 118/73
--- NOTE | 2019-09-21 04:15 | NUR ---
AIDE WAS JUST IN TO OBTAIN V/S. PT RETURNING BACK TO SLEEP, DENIES ANY NEEDS. CALL LIGHT AT SIDE.
[2019-09-21 05:51] LABS: HEMOGLOBIN 12.3 g/dl (14.0-18.0); MEAN CELL VOLUME 93.4 fL CALC (80.0-100.0); MEAN CORPUSCULAR HGB CONC 32.1 g/L CALC (32.0-36.0); RED BLOOD COUNT 4.1 mill/uL (4.70-6.10); RED CELL DISTRI WIDTH 13.2 % (11.5-15.5)
[2019-09-21 05:55] LABS: HEMATOCRIT 38.3 % (39.0-50.0)
--- NOTE | 2019-09-21 06:07 | NUR ---
PT MEDICATED ORDERS PROVIDE. PT PROPPED UP IN BED WATCHING NEWS W/LIGHTS ON.
[2019-09-21 06:10] LABS: ANION GAP 11 (6-22 (CALC)); BUN 38 mg/dL (8-23); BUN/CREATININE RATIO 61 (12-20 (CALC)); CARBON DIOXIDE 32 mmol/l (22-30); CHLORIDE 95 mmol/l (95-108); CREATININE 0.6 mg/dL (0.7-1.3); GFR > 60 ML/MIN (>=60 (CALC)); GFR FOR AFR.AMER. > 60 ML/MIN (>=60 (CALC)); SODIUM 133 mmol/l (137-146)
[2019-09-21 07:48] VITALS: BP 127/74
--- NOTE | 2019-09-21 09:00 | NUR ---
PT IS AWAKE, ALERT, ORIENTED X 3. LUNGS ARE SLIGHTLY WHEEZY THROUGHOUT, 3 LPM NC. PRODUCTIVE COUGH HEARD. NO COMPLAINTS SHORTNESS OF BREATH.
--- NOTE | 2019-09-21 13:00 | NUR ---
PT SEEN BY DR SANTIZO, DISCUSSED FINDINGS ON CT SCAN. PT PROVIDED COUGH MED, SEEMS TO HAVE HELPED.
[2019-09-21 14:33] VITALS: BP 96/61
--- NOTE | 2019-09-21 18:27 | NUR ---
PT HEARD TALKING ON THE PHONE, NO DISTRESS, NO COMPLAINTS.
[2019-09-21 19:00] VITALS: BP 95/65
--- NOTE | 2019-09-21 19:35 | NUR ---
CHANGE OF SHIFT REPORT RECEIVED FROM SO RED. PT IN ROOM SITTING UP IN BED. URINE IN URINAL. PATIENT ABLE TO MAKE NEEDS KNOWN. WET PRESS TENDER WILL CONTINUE TO MONITOR.
--- NOTE | 2019-09-22 | NUR ---
PATIENT RESTING COMFORTABLY. NO S/S OF DISTRESS. ERECTION SHOP SUPERVISOR WILL CONTINUE TO MONITOR
[2019-09-22 04:48] VITALS: BP 106/68
--- NOTE | 2019-09-22 04:48 | NUR ---
PATIENT REQUESTEDE MEDICATION FOR COUGH. PRN MEDICATION ADMINISTERED PER ORDER
[2019-09-22 05:58] LABS: HEMATOCRIT 36.9 % (39.0-50.0); MEAN CELL VOLUME 92.7 fL CALC (80.0-100.0); MEAN CORPUSCULAR HGB 30.2 pG CALC (26.0-32.0); MEAN CORPUSCULAR HGB CONC 32.5 g/L CALC (32.0-36.0); RED BLOOD COUNT 3.98 mill/uL (4.70-6.10)
[2019-09-22 06:12] LABS: ANION GAP 8 (6-22 (CALC)); BUN 39 mg/dL (8-23); BUN/CREATININE RATIO 66 (12-20 (CALC)); CARBON DIOXIDE 36 mmol/l (22-30); CHLORIDE 94 mmol/l (95-108); CREATININE 0.6 mg/dL (0.7-1.3); GFR > 60 ML/MIN (>=60 (CALC)); GFR FOR AFR.AMER. > 60 ML/MIN (>=60 (CALC)); POTASSIUM 4.3 mmol/l (3.5-5.1); SODIUM 134 mmol/l (137-146)
[2019-09-22 08:00] VITALS: BP 105/70; BP 121/71
--- NOTE | 2019-09-22 08:18 | NUR ---
PRELIMINARY CULTURE RESULTS CALLED TO . / VIALS GROWING GRAM (+) COCCI. RBVO TO START VANCOMYCIN PHARMACY TO DOSE. PHARMACY WILL FOLLOW FOR FINAL C+S
--- NOTE | 2019-09-22 09:00 | NUR ---
PT RESTS IN THE BED, NO EVIDENCE OF DISTRESS. PT AMBULATORY TO BR NEEDED, BECOMES SOB WITH EXERTION.
--- NOTE | 2019-09-22 12:36 | NUR ---
PT WITH PRODUCTIVE COUGH, HAS RECEIVED ROBITUSSIN FOR SAME. COUGH MED IS HELPFUL PER DECREASE IN COUGHING EPISODES. NO COMPLAINTS OF SHORTNESS OF BREATH OR OTHERWISE.
--- NOTE | 2019-09-22 14:09 | NUR ---
S: NICOLÁS MORGAN is a 74 M who presents with PNEUMONIA. He has a history of PNEUMONIA COPD. All medications in patient's chart were reviewed. O: VS: BP 105/70, P 78, RR 18,T 97.8 W 68 kg>, HT 70IN, Scr= 0.6,CrCl= 61ml/min A: Blood culture <is pending/show> which is sensitive to <>. Urine culture <is pending/show> which is sensitive to <>. P: Patient is on LEVAQUIN 750MG . Vancomycin ordered for pharmacy to dose. Start Vancomycin 750MG IV Q12H. Vancomycin trough is drawn before the 4th dose on 09/23/19 @1999. Vancomycin goal trough is between <15-20 mcg/ml>. Pharmacy will follow and or advise on antibiotics use as needed.
[2019-09-22 15:25] VITALS: BP 137/74
--- NOTE | 2019-09-22 16:12 | NUR ---
PT PROVIDED MIRALAX IN PRUNE JUICE THIS AFTERNOON PER 5 DAYS NO BM. PT DOES HAVE ACTIVE BOWEL SOUNDS, BUT SAYS THIS IS A PROBLEM FOR HIM AT HOME, TOO. OCCASIONAL COUGH HEARD, LOOSE.
--- NOTE | 2019-09-22 17:20 | NUR ---
PT REQUESTED AND RECEIVED FLEET ENEMA WHICH HE ADMINISTERED HIMSELF, STATES THAT HE DID HAVE A SMALL BM THE RESULT.
[2019-09-22 19:15] VITALS: BP 116/61
--- NOTE | 2019-09-22 19:40 | NUR ---
ASSESSMENT COMPLETED. PT. WITH PRODUCTIVE COUGH, PT. REPORTS IT WAS BLOOD TINGED EARLIER AND THIS MILLER HELPER RELAYED THIS TO CITY DETECTIVE ON THE FLOOR AND SPUTUM CULTURE ORDER RECIEVED AND PLACED SPECIMEN CUP IN ROOM AND INSTRUCTED PT. OF NEED FOR SPUTUM; VERBALIZES UNDERSTANDING.PT. MEDICATED WITH ORDERED PRN ROBITUSSIN AC WELL. INCENTIVE SPIROMTER PROVIDED WELL AND ENCOURAGED USE. O2 INFUSING PER NC PER ORDER. ENCOURAGED TO CALL FOR ANY NEEDS. CALL LIGHT IS IN REACH.
--- NOTE | 2019-09-22 20:45 | NUR ---
SPUTUM SAMPLE OBTAINED AND SENT TO LAB. SCHED MEDS GIVEN. DENIES FURTHER NEEDS. CALL LIGHT IS IN REACH.
--- NOTE | 2019-09-22 23:10 | NUR ---
PT. RESTING IN BED AND REPORTS X1 MORE SMALL BM. DENIES FURTHER NEEDS. CALL LIGHT IS IN REACH.
--- NOTE | 2019-09-23 01:53 | NUR ---
RESTING IN BED WITH EYES CLOSED; RESP. EVEN AND UNLABORED. CALL LIGHT IS IN REACH.
[2019-09-23 04:24] VITALS: BP 123/74
--- NOTE | 2019-09-23 06:04 | NUR ---
PT. C/O COUGH AND CONTINUES WITH VERY MINIMAL BM, MEDICATED WITH ORDERED PRN ROBITUSSIN AC, MOM , AND MIRALAX; WILL REASSESS.
[2019-09-23 07:35] VITALS: BP 103/65
--- NOTE | 2019-09-23 09:46 | NUR ---
PT CONTINUES WITH PRODUCTIVE COUGH, PROVIDED WITH YANKAUER SUCTION FOR SECRETIONS. LUNGS ARE DIMINISHED WITH SLIGHT WHEEZING IN THE BASES, 2 LPM NC.
--- NOTE | 2019-09-23 12:00 | NUR ---
REPORT RECEIVED FROM TEOFILO, PT RESTING IN BED, NO SIGNS OF DISTRESS NOTED, RESP EVEN AND UNLABORED. INTRODUCED SELF TO PT, IV LEVAQUIN INITIATED. CALL LIGHT IN REACH,CONTINUE TO MONITOR
--- NOTE | 2019-09-23 15:07 | NUR ---
PT REQUESTING FLEETS ENEMALEXII NOTIFIED AND ORDER RECEIVED. PT STATES HE WOULD PREFER TO DO HIMSELF. 02 TUBING EXTENDED TO REACH BATHROOM, INSTRUCTED TO PULL RED CORD FOR ASSISTANCE.
[2019-09-23 19:30] VITALS: BP 116/73
--- NOTE | 2019-09-23 19:50 | NUR ---
ASSESSMENT COMPLETED. DENIES NEEDS/PAIN. NEW IV SITE STARTED TO LFA AND LAC IV SITE REMOVED WITH CATHETER TIP INTACT. PT. TOLERATED WELL. VANCO TROUGH OBTAINED WELL. PRN SUCTION AT BEDSIDE. O2 INFUSING PER NC PER ORDER. ENCOURAGED TO USE I/S.
--- NOTE | 2019-09-23 23:52 | NUR ---
PT. REQUESTS SOMETHING TO HELP HIM SLEEP, NOTIFIED ER PHYSICIAN AND ORDERS RECEIVED AND TO BE CARRIED OUT.
--- NOTE | 2019-09-24 00:21 | NUR ---
MEDICATED WITH ORDERED X1 DOSE OF RESTORIL TO ASSIST WITH SLEEP PER ORDER.
[2019-09-24 03:52] VITALS: BP 130/71
--- NOTE | 2019-09-24 04:00 | NUR ---
RESTING IN BED WITH NO DISTRESS NOTED; DENIES NEEDS. CALL LIGHT IS IN REACH.
[2019-09-24 05:11] LABS: HEMATOCRIT 35.9 % (39.0-50.0); HEMOGLOBIN 11.1 g/dl (14.0-18.0); IMMATURE GRANULOCYTES 1.4 % (0.0-5.0); MEAN CELL VOLUME 95.7 fL CALC (80.0-100.0); MEAN CORPUSCULAR HGB 29.6 pG CALC (26.0-32.0); MEAN CORPUSCULAR HGB CONC 30.9 g/L CALC (32.0-36.0); NEUT# 6.67 thou/uL (1.82-7.42); RED BLOOD COUNT 3.75 mill/uL (4.70-6.10); RED CELL DISTRI WIDTH 13.2 % (11.5-15.5)
[2019-09-24 05:46] LABS: ANION GAP 8 (6-22 (CALC)); BUN 24 mg/dL (8-23); BUN/CREATININE RATIO 52 (12-20 (CALC)); CARBON DIOXIDE 37 mmol/l (22-30); CHLORIDE 97 mmol/l (95-108); CREATININE 0.5 mg/dL (0.7-1.3); GFR > 60 ML/MIN (>=60 (CALC)); GFR FOR AFR.AMER. > 60 ML/MIN (>=60 (CALC)); MAGNESIUM 2.5 mg/dL (1.6-2.3); SODIUM 137 mmol/l (137-146)
--- NOTE | 2019-09-24 07:05 | NUR ---
REPORT RECEIVED FROM SO MORALES. PT RESTING IN BED SEMI FOWLERS WITH EYES CLOSED; AWAKENS TO VERBAL STIMULI; ORIENTED X 3. C/O CHRONIC BACK PAIN. RESPIRATIONS EVEN AND UNLABORED ON OXYGEN 3L VIA NC. LUNGS WITH RHONCHI THROUGHOUT. PLAN OF CARE REVIEWED. PT ENCOURAGED TO VERBALIZE CONCERNS. STATES UNDERSTNANDING. SAFETY MEASURES IN PLACE. CALL LIGHT WITHIN REACH.
[2019-09-24 07:49] VITALS: BP 133/67
--- NOTE | 2019-09-24 11:52 | NUR ---
RT AT BEDSIDE FOR BREATHING TREATMENT AFTER C/O SOB.
--- NOTE | 2019-09-24 13:11 | NUR ---
PT RESTING WITH EYES CLOSED AND NO SIGNS OF DISTRESS. RESPIRATIONS EVEN AND UNLABORED AT REST. LEVAQUIN INFUSING AT THIS TIME. CALL LIGHT WITHIN REACH.
--- NOTE | 2019-09-24 14:05 | NUR ---
S: NICOLÁS MORGNA is a 74 M who presents with Pneumonia. He has a history of Pneumonia, COPD. All medications in patient's chart were reviewed. O: VS: BP:133/67 mmHg, P:78 bpm, RR: 20 breath per minute,T: 98.0 F W: 68.01kg, HT: 70in, Scr= 0.5 L,CrCl= 61.4 ml/min A: Blood culture shows Streptococcus Pneumoniae which is sensitive to Vancomycin. P: Patient is on Levofloxacin 750mg IV Q24H, Vancomycin 750mg IV Q12H. trough on 09/23/19 at 2000 is 6 Vancomycin ordered for pharmacy to dose. Change Vancomycin 1,250mg IV Q12H. Vancomycin trough is drawn 30 minutes before the 4th dose on 09/25/19 at 1930. Vancomycin goal trough is between 15-20 mcg/ml. Pharmacy will follow and or advise on antibiotics use as needed.
--- NOTE | 2019-09-24 14:35 | NUR ---
ROBITUSSIN AC GIVEN FOR COUGH PER PT REQUEST. PT SITTING UP ON EDGE OF BED USING INSENTIVE SPIROMETER.
--- NOTE | 2019-09-24 14:44 | NUR ---
S: NICOLÁS MORGAN is a 74 M who presents with Bacteremia, Pneumonia. He has a history of heart disease, hypertension, COPD. All medications in patient's chart were reviewed. O: VS: BP:133/67 mmHg, P: 78 bpm, RR: 20 breath per minute ,T:98.0 F W: 68.01kg , HT: 70in, Scr=0.6L,CrCl= 61.4ml/min Vancomycin trough: 6.0L on 09/23/19 at 2000 A: Blood culture shows Streptococcus Pneumoniae which is sensitive to Vancomycin. P: Patient is on Levofloxacin 750mg IV Q24H, Vancomycin 1,250mg IV Q8H. Vancomycin ordered for pharmacy to dose. Change Vancomycin dose to 1,250mg IV Q8H. Vancomycin trough is drawn 30 minutes before the 4th dose on 09/25/19 at 0730. Vancomycin goal trough is between 15-20 mcg/ml. Pharmacy will follow and or advise on antibiotics use as needed.
[2019-09-24 15:42] VITALS: BP 126/71
[2019-09-24 18:51] VITALS: BP 129/72
--- NOTE | 2019-09-24 19:35 | NUR ---
PT. SITTING UP IN BED WATCHING TV, NO DISTRESS NOTED; DENIES PAIN. PT. REQUESTS SLEEPING PILL WILL ASK PROVIDER FOR ORDERS. PT. ALSO REPORTS SMALL SOFT BM TODAY, BUT WOULD LIKE SOME MORE MOM AT BEDTIME, WILL MEDICATE PER ORDER. IV SITE PATENT AND SL. URINAL EMPTIED AND AT BEDSIDE. O2 INFUSING PER NC PER ORDER AND PRN SUCTION AT BEDSIDE. ASSESSMENT COMPLETED. CALL LIGHT IS IN REACH. WILL CONTINUE TO MONITOR. I/S ENCOURAGED TO USE. ENCOURAGED TO CALL FOR ANY NEEDS.
--- NOTE | 2019-09-24 23:48 | NUR ---
RESTING IN BED ON LEFT SIDE WITH EYES CLOSED; NO DISTRESS NOTED; AROUSES EASILY. AKASH BALDWIN.CALL LIGHT IS IN REACH.
--- NOTE | 2019-09-25 02:00 | NUR ---
RESTING IN BED WITH NO DISTRESS NOTED; DENIES NEEDS/PAIN. VOICES NO CONCERNS. URINAL EMPTIED. CALL LIGHT IS IN REACH.
[2019-09-25 03:25] VITALS: BP 123/69
--- NOTE | 2019-09-25 05:38 | NUR ---
SCHED SOLU-MEDROL GIVEN. PT. REQUESTS PRN SILVANA TX AND RT NOTIFIED. DENIES FURTHER NEEDS. CALL LIGHT IS IN REACH.
[2019-09-25 08:00] VITALS: BP 125/74
[2019-09-25 15:08] VITALS: BP 123/81
[2019-09-25 18:55] VITALS: BP 130/77
--- NOTE | 2019-09-25 19:00 | NUR ---
RECEIVED REPORT FROM DAY NURSE PATIENT WAS RESTING IN BED, CURRENTLY HAVING BREATHING TREATMENT CALL LIGHT AT REACH.
--- NOTE | 2019-09-25 20:00 | NUR ---
PATIENT ALERT AND ORIENTED ABLE TO MAKE NEEDS KNOWN, WITH SALINE LOCK ON LFA PATENT FLUSHES WELL LBM 3/10 REMAINS ON O2 @ 3LPM VIA NC EVEN UNLABORED BREATHING, PRODUCTIVE COUGH THICK WHITE TO YELLOWISH IN COLOR, CALL LIGHT AT REACH.
--- NOTE | 2019-09-26 | NUR ---
PATIEMT APPEARS TO BE SLEEPING WITH EYS CLOSED, SHALLOW UNLABORED RESPIRATION REMAINS ON O2 @ 3LPM VIA NC,CALL LIGHT AT REACH.
[2019-09-26 04:00] VITALS: BP 127/80
--- NOTE | 2019-09-26 04:00 | NUR ---
PATIENT RWESTING IN BED, REMAINS ON O2 @ 3LPM VIA NC, SHALLOW, UNLABORED BREATHING CALL LIGHT AT REAX.
[2019-09-26 04:58] LABS: HEMATOCRIT 37.5 % (39.0-50.0); HEMOGLOBIN 11.8 g/dl (14.0-18.0); MEAN CELL VOLUME 94.5 fL CALC (80.0-100.0); MEAN CORPUSCULAR HGB 29.7 pG CALC (26.0-32.0); MEAN CORPUSCULAR HGB CONC 31.5 g/L CALC (32.0-36.0); RED BLOOD COUNT 3.97 mill/uL (4.70-6.10); RED CELL DISTRI WIDTH 12.8 % (11.5-15.5)
[2019-09-26 05:20] LABS: BUN 17 mg/dL (8-23); BUN/CREATININE RATIO 40 (12-20 (CALC)); CHLORIDE 92 mmol/l (95-108); CREATININE 0.4 mg/dL (0.7-1.3); GFR > 60 ML/MIN (>=60 (CALC)); GFR FOR AFR.AMER. > 60 ML/MIN (>=60 (CALC)); MAGNESIUM 2.1 mg/dL (1.6-2.3); POTASSIUM 4.7 mmol/l (3.5-5.1); SODIUM 134 mmol/l (137-146)
[2019-09-26 05:25] LABS: ANION GAP 9 (6-22 (CALC)); CARBON DIOXIDE 38 mmol/l (22-30)
[2019-09-26 08:00] VITALS: BP 137/88
[2019-09-26 16:00] VITALS: BP 138/84
--- NOTE | 2019-09-26 19:02 | NUR ---
REPORT FROM [place] RIZZO. PT RESTING IN BED. ALERT AND ORIENTED. NO APPARENT DISTRESS NOTED. O2 @ 3L/M VIA NC. PT DENIES ANY PAIN OR DISCOMFORT. IV SITE APPEARS HEALTHY. DISCUSSED POC. PT VERBALIZED UNDERSTANDING. CALL LIGHT WITHIN REACH. WILL CONTINUE TO MONITOR.
[2019-09-26 19:16] VITALS: BP 141/74
--- NOTE | 2019-09-26 21:43 | NUR ---
PT MEDICATED ORDERED. SLEEPING PILL PROVIDED UPON REQUEST. DENIES ANY OTHER WANTS OR NEEDS. NO APPARENT DISTRESS NOTED. 400ML CLEAR YELLOW URINE EMPTIED FROM URINAL. CALL LIGHT WITHIN REACH. WILL CONTINUE TO MONITOR.
--- NOTE | 2019-09-27 00:54 | NUR ---
PT RESTING IN BED WITH EYES CLOSED. NO APPARENT DISTRESS NOTED. CALL LIGHT WITHIN REACH. WILL CONTINUE TO MONITOR.
[2019-09-27 04:00] VITALS: BP 122/75
--- NOTE | 2019-09-27 04:11 | NUR ---
PT RESTING IN BED WITH EYES CLOSED. NO APPARENT DISTRESS NOTED. CALL LIGHT WITHIN REACH. WILL CONTINUE TO MONITOR.
[2019-09-27 05:13] LABS: HEMATOCRIT 38.5 % (39.0-50.0); HEMOGLOBIN 12.1 g/dl (14.0-18.0); MEAN CELL VOLUME 93.4 fL CALC (80.0-100.0); MEAN CORPUSCULAR HGB 29.4 pG CALC (26.0-32.0); MEAN CORPUSCULAR HGB CONC 31.4 g/L CALC (32.0-36.0); RED BLOOD COUNT 4.12 mill/uL (4.70-6.10); RED CELL DISTRI WIDTH 12.8 % (11.5-15.5)
[2019-09-27 05:39] LABS: ANION GAP 8 (6-22 (CALC)); BUN 22 mg/dL (8-23); BUN/CREATININE RATIO 46 (12-20 (CALC)); CARBON DIOXIDE 38 mmol/l (22-30); CHLORIDE 92 mmol/l (95-108); CREATININE 0.5 mg/dL (0.7-1.3); GFR > 60 ML/MIN (>=60 (CALC)); GFR FOR AFR.AMER. > 60 ML/MIN (>=60 (CALC)); MAGNESIUM 2.2 mg/dL (1.6-2.3); POTASSIUM 4.7 mmol/l (3.5-5.1); SODIUM 133 mmol/l (137-146)
[2019-09-27 08:00] VITALS: BP 136/83
--- NOTE | 2019-09-27 09:00 | NUR ---
PT AWAKE, ALERT, ORIENTED X 3. LUNGS ARE CLEAR BUT DIMINISHED, 3 LPM NC. PT DID HAVE BM TODAY. PT FEELS GOOD, HOPES FOR DISCHARGE TO HOME TOMORROW.
--- NOTE | 2019-09-27 13:00 | NUR ---
PT WITH BREATHING TREATMENTS PROVIDED REGULARLY. PT CONTINUES TO APPEAR IMPROVED SINCE A FEW DAYS AGO. VISITOR AT BEDSIDE EARLIER.
[2019-09-27 14:50] VITALS: BP 127/71
--- NOTE | 2019-09-27 16:52 | NUR ---
PT HEARD WITH LOUD COUGH IN ROOM A WHILE BACK, NOW RESTS IN THE BED WITH EYES CLOSED, NO EVIDENCE OF DISTRESS.
--- NOTE | 2019-09-27 19:15 | NUR ---
REPORT FROM TEOFILO RIZZO. PT RESTING IN BED. ALERT AND ORIENTED. NO APPARENT DISTRESS NOTED. O2 @ 3L/M VIA NC. PT DENIES ANY PAIN OR DISCOMFORT. IV SITE APPEARS HEALTHY. DISCUSSED POC. PT VERBALIZED UNDERSTANDING. CALL LIGHT WITHIN REACH. WILL CONTINUE TO MONITOR.
[2019-09-27 19:25] VITALS: BP 122/69
--- NOTE | 2019-09-27 21:07 | NUR ---
PT MEDICATED ORDERED. SLEEPING PILL AND PRN COUGH MEDICINE PROVIDED UPON REQUEST. DENIES ANY OTHER WANTS OR NEEDS. NO APPARENT DISTRESS NOTED. CALL LIGHT WITHIN REACH. WILL CONTINUE TO MONITOR.
--- NOTE | 2019-09-27 22:15 | NUR ---
LINE MAINTENANCE DISCUSSED WITH PT IV SITE AND NEEDED TO BE CHANGED, PT REFUSED STATING HE WAS BEING DISCHARGED TOMORROW. EDUCATION PROVIDED, PT CONTINUED TO REFUSED AND VERBALIZED UNDERSTANDING.
--- NOTE | 2019-09-28 01:25 | NUR ---
PT RESTING IN BED WITH EYES CLOSED. NO APPARENT DISTRESS NOTED. CALL LIGHT WITHIN REACH. WILL CONTINUE TO MONITOR.
[2019-09-28 04:12] VITALS: BP 131/77
--- NOTE | 2019-09-28 05:12 | NUR ---
PT RESTING IN BED WITH EYES CLOSED. NO APPARENT DISTRESS NOTED. CALL LIGHT WITHIN REACH. WILL CONTINUE TO MONITOR.
[2019-09-28 07:52] VITALS: BP 126/77
[2019-09-28 08:38] VITALS: BP 126/77
--- NOTE | 2019-09-28 09:00 | NUR ---
PT AWAKE, ALERT, ORIENTED X 3. LUNGS ARE DIMINISHED, 3 LPM NC. PT DOES BECOME SHORT OF BREATH WITH EXERTION, NO CHANGE THERE. BM YESTERDAY. PT ANTICIPATES D/C HOME TODAY.
[2019-09-28] MEDS ORDERED: LEVAQUIN750 MG PO (13:23)
[2019-09-28] MEDS ORDERED: BIOTUSSIN PO (13:23)
[2019-09-28] MEDS ORDERED: PREDNISONE10 MG PO (13:26)
--- NOTE | 2019-09-28 14:20 | NUR ---
PT HAS BEEN SEEN BY DR SANTIZO AND DISCHARGED TO HOME. PT VERBALIZED UNDERSTANDING OF DC INSTRUCTIONS, TAKEN TO VEHICLE BY WHEELCHAIR WITH OXYGEN. PT LEAVES [facility] IN STABLE CONDITION, THANKS STAFF HE LEAVES.
== END 2019-09-28 14:20 | DRG 871 ==
LOC: ED 10:01 → ED-I 11:08 → ED 11:23 → MS2 11:24 → ED-I 11:24 → MS2 11:41
PROVIDERS: Family Medicine; Nurse Practitioner Family; ADMIT Internal Medicine; ATTEND Internal Medicine
DX: A40.3 Sepsis due to Streptococcus pneumoniae (principal); J18.9 Pneumonia, unspecified organism; J96.22 Acute and chronic respiratory failure with hypercapnia; J96.21 Acute and chronic respiratory failure with hypoxia; R65.20 Severe sepsis without septic shock; J44.1 Chronic obstructive pulmonary disease with (acute) exacerbation; C91.10 Chronic lymphocytic leukemia of B-cell type not having achieved remission; R04.2 Hemoptysis; J44.0 Chronic obstructive pulmonary disease with (acute) lower respiratory infection; I10 Essential (primary) hypertension; I25.10 Atherosclerotic heart disease of native coronary artery without angina pectoris; I48.91 Unspecified atrial fibrillation; R91.8 Other nonspecific abnormal finding of lung field; R59.0 Localized enlarged lymph nodes; I25.2 Old myocardial infarction; Z99.81 Dependence on supplemental oxygen; Z87.891 Personal history of nicotine dependence; Z95.5 Presence of coronary angioplasty implant and graft; Z79.01 Long term (current) use of anticoagulants; Z79.899 Other long term (current) drug therapy; Z88.0 Allergy status to penicillin
CPT/HCPCS: J3370; Q3014; Q9967

== ENCOUNTER 2020-01-28 20:58 | Inpatient (IN) | payer MEDICARE, MEDICAID ==
[~2020-01-28] VITALS: Ht 177.8 cm; Wt 3.0 kg
[~2020-01-28 20:58] MED LIST changes: +BIOTUSSIN PO; +DILT-XR120 MG PO; +IMBRUVICA PO; +LOSARTAN POTASS25 MG PO; +PROAIR HFA108 MCG/AC IN
--- NOTE | 2020-01-28 20:58 | NUR ---
BY EMS TO ROOM ON 3L/NC
--- NOTE | 2020-01-28 21:00 | NUR ---
PT ARRIVES BY EMS WITH SOB THAT HAS WORSENED IN THE LAST FEW DAYS. HE HAS A DX OF COPD BUT MENTIONS THAT HIS COUGHING HAS GOTTEN WORSE ALONG WITH INCREASED PHLEM. PT DENIES CHEST PAIN OR OTHER PAINS OR S/S. LUNGS HAVE SOUNDS OF RHONCHI BI. AFIBRILE. VITALS WNL. AOX4. SPO2 AT 94%
--- NOTE | 2020-01-28 21:45 | NUR ---
MD NOTIFIED OF O2 SAT SITTING AT 90-92% ON 3L OF O2. MD STATED TO NOT INCREASE. WE WILL CONTINUE TO MONITOR.
[2020-01-28 21:52] LABS: MEAN CELL VOLUME 91.9 fL CALC (80.0-100.0); MEAN CORPUSCULAR HGB 27.6 pG CALC (26.0-32.0); MEAN CORPUSCULAR HGB CONC 30.1 g/dL CAL (32.0-36.0); NEUT# 4.42 thou/uL (1.82-7.42); RED BLOOD COUNT 3.33 mill/uL (4.70-6.10); RED CELL DISTRI WIDTH 18.6 % (11.5-15.5)
--- NOTE | 2020-01-28 21:52 | NUR ---
GAVE REPORT TO KAI
[2020-01-28 21:56] LABS: HEMATOCRIT 30.6 % (39.0-50.0); HEMOGLOBIN 9.2 g/dl (14.0-18.0)
[2020-01-28 22:05] LABS: ALBUMIN 3.7 g/dL (3.2-5.0); ALKALINE PHOSPHATASE 62 u/l (38-126); ANION GAP 8 (6-22 (CALC)); BUN 19 mg/dL (8-23); BUN/CREATININE RATIO 47 (12-20 (CALC)); CARBON DIOXIDE 35 mmol/l (22-30); CHLORIDE 94 mmol/l (95-108); CREATININE 0.4 mg/dL (0.7-1.3); GFR > 60 ML/MIN (>=60 (CALC)); GFR FOR AFR.AMER. > 60 ML/MIN (>=60 (CALC)); POTASSIUM 3.8 mmol/l (3.5-5.1); SGOT/AST 29 u/l (19-48); SODIUM 133 mmol/l (137-146); TOTAL PROTEIN 6.2 g/dL (6.3-8.2)
[2020-01-28 22:10] LABS: BILIRUBIN, TOTAL 0.5 mg/dL (0.0-1.4)
--- NOTE | 2020-01-28 22:13 | NUR ---
PT POINTED OUT MULTIPLE SKIN CANCER LESIONS THAT HAVE ERUPTED SINCE STARTING CHEMO. SITES ON BACK AND RIGHT ARM.
[2020-01-28 22:17] LABS: MYOGLOBIN 32 ng/mL (0 - 121)
--- NOTE | 2020-01-28 22:57 | NUR ---
GOT CHOKED WHILE TRYING TO DRINK SOME WATER.
--- NOTE | 2020-01-28 23:13 | NUR ---
RESTING QUIETLY. NAD.
--- NOTE | 2020-01-28 23:53 | NUR ---
RESTING QUIETLY. RESP APPEAR LESS LABORED.
[2020-01-29] VITALS (7 sets, daily range): BP systolic 111–125; BP diastolic 69–80
--- NOTE | 2020-01-29 00:14 | NUR ---
Admission Note Report Given to: SO BURGOS Transported by: Wheelchair X Stretcher Transported with: X Nurse Transporter X Patent IV X O2 X Solutions Engineer Location: ICU X [facility]2
--- NOTE | 2020-01-29 00:25 | NUR ---
PT ARRIVED TO UNIT FLOOR VIA STRETCHER ACCOMPANIED BY ED NURSE. PT IS SLEEPING, BUT AWOKE TO OUR VOICES TALKING TO HIM. PT SELF TRANSFERRED OVER TO BED FROM STRETCHER. PT DENIES ANY DISCOMFORTS AT THIS TIME, BUT IS COUGHING A LOT WHILE WE ARE WITH HIM. ASSESSMENT COMPLETED AND POC DISCUSSED WITH PT. PT REPORTS HAVING CHEMO MEDICATION WITH HIM IN HIS BAG/WILL REPORT THIS TO PHYSICIAN, DAY NURSE AND PHARMACY. HE DENIES NEEDING TO TAKE ANY TONIGHT. ADMISSION COMPLETED AT THIS TIME. PICUTRES OF PT BACK WOUND TAKEN AT THIS TIME. PT DENIES ANY OTHER WOUNDS, BUT STATES HE IS SEEING A [employer] OFFICER FOR CLOSED WOUND ON HIS BACK. ICEWATER PROVIDED AND PT DENIES ANY OTHER NEEDS, ONLY WANTING SLEEP.
--- NOTE | 2020-01-29 02:40 | NUR ---
PT CALLED TO REPORT FEELING SOB AND ASKED FOR A BREATHING TREATMENT. PHYSICIAN NOTIFIED AND ORDERS RECEIVED FOR INHALER. WILL ADMINISTER SOON MEDICATION AVAILABLE FROM PHARMACY/[facility].
--- NOTE | 2020-01-29 02:59 | NUR ---
PT MEDICATED FOR SOB W/INHALER. V/S ASSESSED AT THIS TIME. NO S/O DISTRESS NOTED, PT WAS RESTING W/EYES CLOSED I ENTERED THE ROOM.
[2020-01-29 05:02] LABS: URINE BILIRUBIN - DIPSTICK NEGATIVE (NEGATIVE); URINE BLOOD DIPSTICK NEGATIVE (NEGATIVE); URINE COLOR YELLOW; URINE GLUCOSE - DIPSTICK NEGATIVE (NEGATIVE); URINE KETONE TRACE mg/dL (NEGATIVE); URINE LEUK ESTERASE NEGATIVE (NEGATIVE); URINE NITRITE - DIPSTICK NEGATIVE (Negative); URINE PH 6.5 (4.5-8.0); URINE PROTEIN - DIPSTICK TRACE mg/dL (NEG-TRACE); URINE UROBILINOGEN - DIPSTICK 0.2 E.U./dL (0.2)
--- NOTE | 2020-01-29 05:49 | NUR ---
PT MEDICATED AT THIS TIME. PT WAS SLEEPING I ENTERED THE ROOM. PT UPRIGHT IN HIGH FOWLERS. PT RETURNED TO SLEEP PRIOR TO MY LEAVING ROOM. NO S/O DISTRESS. CALL LIGHT W/IN REACH.
--- NOTE | 2020-01-29 07:20 | NUR ---
REPORT RECEIVED FROM SO BURGOS
--- NOTE | 2020-01-29 08:50 | NUR ---
PT RESTING IN SEMI FOWLERS POSITON,A&O X3;VS OBTAINED AND ASSESSMENT COMPLETED;PT DENIES ANY CURRENT PAIN OR DISCOMFORTS,PAIN SCALE AND REPORTING EDUCATED;RESPIRATIONS EVEN AND UNLABORED ON O2 @ 3L VIA NC,PT IS HOME OXYGEN DEPENDENT AT 3L;NON-PRODUCTIVE COUGH NOTED AT THIS TIME,PT REPORTS PRODUCTIVE AT TIMES WHITE/THICK;ABDOMEN SOFT ON PALPATION AND ACTIVE IN ALL 4 QUADRANTS;WEAK PEDAL PULSES;SKIN INTACT, BUT DISCOLORED AREA NOTED TO RT UPPER BACK, PT REPORTING FROM SKIN CANCER;EMS #18G TO RIGHT HAND AND #18G TO LAC FLUSHED AND PATENT,BOTH SITES APPEARS HEALTHY;TELE MONITORING IN PLACE;PT DENIES ANY ADDITIONAL NEEDS AND IS ENCOURAGED TO CALL FOR ASSISTANCE IF NEEDED;FALL PRECAUTIONS IN PLACE WITH BED IN THE LOWEST POSITION AND CALL LIGHT IN REACH;WILL CONTINUE TO MONITOR
--- NOTE | 2020-01-29 10:44 | NUR ---
AT BEDSIDE DISCUSSING POC.
--- NOTE | 2020-01-29 11:50 | NUR ---
PT RESTING IN SEMI FOWLERS POSITION;RESPIRATIONS REMAIN EVEN AND UNLABORED ON O2 @ 3L VIA NC;PT DENIES ANY CURRENT PAIN OR DISCOMFORTS;TELE MONITORING IN PLACE;PT ENCOURAGED TO CALL FOR ASSISTANCE IF NEEDED;FALL PRECAUTIONS REMAIN IN PLACE WITH CALL LIGHT IN REACH;WILL CONTINUE TO MONITOR
--- NOTE | 2020-01-29 15:40 | NUR ---
PT RESTING IN SEMI FOWLERS POSITION;RESPIRATIONS REMAIN EVEN AND UNLABORED ON O2 @ 3L VIA NC;PT REPORTS SOB NOTED AT TIMES AND PRODUCTIVE COUGH;PT DENIES ANY CURRENT PAIN,PAIN SCALE AND REPORTING EDUCATED;#18G TO RIGHT HAND AND #18G TO LAC REMAIN PATENT;TELE MONITORING IN PLACE;PT ENCOURAGED TO CALL FOR ASSISTANCE IF NEEDED;CALL LIGHT IN REACH;WILL CONTINUE TO MONITOR
--- NOTE | 2020-01-29 21:34 | NUR ---
PT MEDICATED ORDERS PROVIDE AND WITH IV ANTIBIOTIC THERAPY AT THIS TIME. PT REPORTS LAST BM ON TUESDAY AND STATED THAT HE MAY NEED A LAXATIVE TOMORROW. IF OFFERED WARM PRUNE JUICE AND PT RESPONDED "SURE" THIS WAS PROIVIDED AT THIS TIME. LUNG SOUNDS ARE COURSE THROUGHOUT AND PT IS COUGHING UP THICK WHITE SPUTUM INTO AN EMEISIS BAG. PT REPORTS FEELING "A SMALL AMOUNT BETTER." NO S/O DISTRESS, PT WATCHING TV AND ANSWERED ALL QUESTIONS APPROPRIATELY. CALL LIGHT AT SIDE.
--- NOTE | 2020-01-29 23:03 | NUR ---
IV PUMP SOUNDED. IV ANTIBIOTIC THERAPY COMPLETE AT THIS TIME. V/S ASSESSED. PT DENIES ANY NEEDS AT THIS TIME. CALL LIGHT W/IN REACH AND PT ENCOURAGED TO CALL NEEDS ARISE.
--- NOTE | 2020-01-29 23:24 | NUR ---
patient refused a shower at this time 2300.
[2020-01-30 03:50] VITALS: BP 107/65
--- NOTE | 2020-01-30 05:01 | NUR ---
BLOOD DRAWN FOR MORNING LABS. PT MEDICATED W/STEROID ORDERS PROVIDE. PT IS COUGHING CONTINUALLY AND BECOMES SOB. ASSISTED PT SLOW DEEP BREATHING AND REPOSITIONING. PT REPORTS FEELING BETTER PRIOR TO MY LEAVING ROOM. OXYGEN SAT LEVEL AT THIS TIME IS 92% ON 2LNC. DISCUSSED OXYGEN LEVELS WITH PT HE REPORTS BEING ON 2L AT HOME DURING THE DAY, BUT TURNING IT UP TO 2.5 - 3L AT HOME OVER NIGHT AT TIMES. PT USED INHAILER WHILE I WAS IN THE ROOM ALSO. SITTING ON SIDE OF THE BED FINDING RELEIF. HR @120'S DURING COUGHING SPELLS, BUT IMMEDIATELY COMES BACK DOWN TO 80'S.
[2020-01-30 05:56] LABS: HEMATOCRIT 31.4 % (39.0-50.0); HEMOGLOBIN 9.3 g/dl (14.0-18.0); IMMATURE GRANULOCYTES 5.9 % (0.0-5.0); MEAN CELL VOLUME 90.5 fL CALC (80.0-100.0); MEAN CORPUSCULAR HGB 26.8 pG CALC (26.0-32.0); MEAN CORPUSCULAR HGB CONC 29.6 g/dL CAL (32.0-36.0); NEUT# 6.66 thou/uL (1.82-7.42); RED BLOOD COUNT 3.47 mill/uL (4.70-6.10); RED CELL DISTRI WIDTH 18.9 % (11.5-15.5)
[2020-01-30 06:09] LABS: ALBUMIN 3.4 g/dL (3.2-5.0); ALKALINE PHOSPHATASE 58 u/l (38-126); ANION GAP 9 (6-22 (CALC)); BUN 25 mg/dL (8-23); BUN/CREATININE RATIO 59 (12-20 (CALC)); CARBON DIOXIDE 34 mmol/l (22-30); CHLORIDE 96 mmol/l (95-108); CREATININE 0.4 mg/dL (0.7-1.3); GFR > 60 ML/MIN (>=60 (CALC)); GFR FOR AFR.AMER. > 60 ML/MIN (>=60 (CALC)); POTASSIUM 4.4 mmol/l (3.5-5.1); SGOT/AST 21 u/l (19-48); SODIUM 135 mmol/l (137-146); TOTAL PROTEIN 5.5 g/dL (6.3-8.2)
[2020-01-30 06:20] LABS: BILIRUBIN, TOTAL 0.2 mg/dL (0.0-1.4); C-REACTIVE PROTEIN 12.7 mg/dL (0-0.9)
--- NOTE | 2020-01-30 07:20 | NUR ---
REPORT RECEIVED FROM SO BURGOS
[2020-01-30 09:00] VITALS: BP 115/68
--- NOTE | 2020-01-30 09:00 | NUR ---
PT RESTING IN SEMI FOWLERS POSITION,A&O X3;VS OBTAINED AND ASSESSMENT COMPLETED;PT DENIES ANY CURRENT PAIN OR DISCOMFORTS,PAIN SCALE AND REPORTING EDUCATED;RESPIRATIONS EVEN AND UNLABORED,SHALLOW ON O2 @ 2L VIA NC; COURSE/DIMINISHED LUNG SOUNDS NOTED;PRODUCTIVE COUGH AT TIMES;ABDOMEN DISTENDED/SOFT ON PALPATION AND ACTIVE IN ALL 4 QUADRANTS;WEAK PEDAL PULSES;SKIN INTACT;TELE MONITORING IN PLACE;EMS #18G TO RIGHT HAND AND #18G TO LAC FLUSHED AND PATENT,BOTH SITES APPEARS HEALTHY AND ABX STARTED AT THIS TIME;PT DENIES ANY ADDITIONAL NEEDS AND IS ENCOURAGED TO CALL FOR ASSISTANCE IF NEEDED;CALL LIGHT IN REACH;WILL CONTINUE TO MONITOR. AT BEDSIDE DISCUSSING POC AT THIS TIME.
--- NOTE | 2020-01-30 10:09 | NUR ---
S: NICOLÁS MORGAN is a 74 M who presents with gram positive blood culture. He has a history of hypertension, COPD, and leukemia. All medications in patient's chart were reviewed. O: VS: BP 115/68 mmHg, P 83 bpm, RR 21 breaths/min, T 97.6 F W 68.7 kg, HT 177.8 cm, Scr= 0.4 mg/dL, CrCl= 61 ml/min A: Blood culture preliminary result shows gram positive cocci. P: Patient is on levofloxacin 750 mg IV Q24H. Vancomycin ordered for pharmacy to dose. Start Vancomycin 750 mg IV Q12H. Vancomycin trough is drawn before the 4th dose on 01/31/20 at 1930. Vancomycin goal trough is between 15-20 mcg/ml. Pharmacy will follow and or advise on antibiotics use as needed.
--- NOTE | 2020-01-30 10:25 | NUR ---
PT MEDICATED WITH PRN ROBITUSSIN FOR COUGH AT THIS TIME.
--- NOTE | 2020-01-30 11:40 | NUR ---
PT RESTING IN SEMI FOWLERS POSITION;RESPIRATIONS EVEN AND UNLABORED,SHALLOW ON O2 @ 2L VIA NC; PT REPORTS THAT PRN ROBITUSSIN HAS BEEN EFFECTIVE;PT DENIES ANY CURRENT PAIN OR NEEDS;TELE MONITORING IN PLACE;EMS #18G TO RIGHT HAND REMOVED AT THIS TIME WITH CATHETER INTACT DUE TO EXPIRATION;PT DENIES ANY ADDITIONAL NEEDS AND IS ENCOURAGED TO CALL FOR ASSISTANCE IF NEEDED;FALL PRECAUTIONS REMAIN IN PLACE WITH BED IN THE LOWEST POSITION AND CALL LIGHT IN REACH;WILL CONTINUE TO MONITOR
[2020-01-30 12:27] VITALS: BP 133/69
--- NOTE | 2020-01-30 16:00 | NUR ---
PT RESTING IN SEMI FOWLERS POSITION;RESPIRATIONS EVEN AND UNLABORED ON O2 @ 2L VIA NC;PT DENIES ANY CURRENT PAIN OR NEEDS;TELE MONITORING IN PLACE;IV SITE PATENT;PT REMAINS IN ISOLATION PRECAUTIONS DUE TO PENDING COVID19 TESTING;ASSESSMENT REMAINC UNCHANGED AT THIS TIME;ENCOURAGED TO CALL FOR ASSISTANCE IF NEEDED;FALL PRECAUTIONS IN PLACE WITH CALL LIGHT IN REACH;WILL CONTINUE TO MONITOR
[2020-01-30 16:59] VITALS: BP 130/71
[2020-01-30 19:14] VITALS: BP 123/76
--- NOTE | 2020-01-30 21:00 | NUR ---
UPON ENTERING ROOM PT FOUND TO BE LAYING IN BED, APPEARS TO BE RESTING COMFORTABLY. PHYSICAL ASSESMENT COMPLETE. PT CURRENTLY DENIES PAIN OR DISCOMFORT, REPORTS PERSISTENT COUGH. MEDICATED WITH PRN ROBITUSSIN, SEE EMAR. SCHEDULED MEDS ADMINISTERED, SEE E-MAR. PRUNE JUICE PROVIDED PER PTS REQUEST. PT DENIES FURTHER NEEDS AT THIS TIME. PLAN OF CARE REVIEWED, PT DENIES QUESTIONS, VERBALIZES UNDERSTANDING. ITEMS WITHIN REACH, BED LOCKED IN LOW POSITION W/ BEDRAILS UP X2. CALL EVANS WITHIN REACH, AGREES TO CALL PRN.
[2020-01-31] VITALS (8 sets, daily range): BP systolic 119–144; BP diastolic 71–87
--- NOTE | 2020-01-31 00:55 | NUR ---
PT APPEARS TO BE SLEEPING COMFORTABLY, NO APPARENT DISTRESS, RESPIRATIONS REGULAR AND UNLABORED. ITEMS REMAIN WITHIN REACH, BED REMAINS LOCKED IN LOW POSITION W/ BEDRAILS UP X2. CALL EVANS REMAINS WITHIN REACH.
--- NOTE | 2020-01-31 06:03 | NUR ---
COVID SWAB RESULTED, RESULTS ARE NEGATIVE. PT ADVISED. WILL MOVE OUT OF [facility] INTO GENERAL ROOM THIS AM.
--- NOTE | 2020-01-31 07:57 | NUR ---
RECIEVED REPORT FROM PORTIA RIZZO. PT RESTING IN SEMI FOWLERS POSITION UPON ENTERIN ROOM. INTRODUCED SELF TO PT AND DISCUSSED POC. ASSESSMENT AND VITALS COMPLETED. BP 136/80, HR 87, O2 98% ON 3 L NC. RESPIRATIONS ARE SHALLOW, PT REPORTS SOB R/T COUGHING. PT RESENTS WITH PRODUCTIVE COUGH, ROBITUSSIN TO BE ADMINISTERED WITH MORNING MEDS. LUNG SOUNDS HAVE WHEEZING. HEART RHYTHM IS NORMAL WITH TELE IN PLACE. BOWEL SOUNDS ARE ACTIVE IN ALL QUADRANTS. LAST REPORTED BM 01/28/20. DR. GREGG TO BE NOTIFIED. ADB IS FIRM AND SLIGHLY DISTENDED. RADIAL AND PEDAL PULSES ARE STRONG WITH NORMAL CAPILLARY REFILL.SKIN IS COOL AND DRY WITH NO EDEMA. PT PRESENTS WITH SCABBED AREA ON RIGHT SHOULDER. PT INFORMS WRITTER THAT ITS SKIN CANCER. IV FLUSHED AT THIS TIME. SITE APPEARS HEALTHY AND PATENT. ALL SAFETY AND ISOLATION PRECAUTIONS IN PLACE WITH CALL LIGHT IN REACH.WILL CONTINUE TO MONITOR. -
--- NOTE | 2020-01-31 10:26 | NUR ---
PT COMPLAINS OF A 5/10 HEAD ACHE, TYLENOL ADMINISTERED AT THIS TIME. RESPIRATIONS ARE SHALLOW, PT COMPLAINS OF SOB ONLY WHEN COUGHING. PT INFORMS WRITTER THAT ROOMATE IS AT [facility] TO [facility] [place] [facility] SOME MONEY AND DROP OFF CLOTHING. PT GIVEN WRITTER $20.00 TO GIVE TO ROOM MATE. PT DENIES ANY OTHER PAIN SOR DISCOMFORTS AT THIS TIME. ALL SAFETY PRECAUTIONS IN PLACE WITH CALL LIGHT IN REACH.WILL CONTINUE TO MONITOR
--- NOTE | 2020-01-31 10:49 | NUR ---
$20.00 GIVEN BACK TO PT AT THIS TIME. PT TO BE TRANSPORTED TO ROOM 260. ROOM MATE TO COME UP TO ROOM AFTER PT IS TRANSPORTED TO ANOTHER ROOM
--- NOTE | 2020-01-31 11:40 | NUR ---
PT TRANSFERED TO ROOM 270 WITH NO DIFFICULTY. RESPIRATIONS ARE EVEN AND UNLABORED WITH NO SIGNS OF DISTRESS. PT DENIES ANY PAIN OR DISCOMFORTS AT THIS TIME. ALL SAFETY AND ISOLATION PRECAUTIONS IN PLACE WITH CALL LIGTH IN REACH. WILL CONTINUE TO MONITOR.
--- NOTE | 2020-01-31 13:06 | NUR ---
MIRLAX ADMINISTERED TO ASSIST WITH BM AT THIS TIME.
--- NOTE | 2020-01-31 13:57 | NUR ---
DR. MARSHALL CALLED ON IPAD AT THIS TIME TO DISCUSS POC WITH PT. POSSIBLE RECOMENDATIONS OF ANITBIOTICS. ALL SAFETY PRECAUTIONS IN PLACE WITH CALL LIGHT IN REACH. WILL CONTINUE TO MONITOR.
--- NOTE | 2020-01-31 16:04 | NUR ---
PT SLEEPING IN SEMI FOWLERS POSITION WATCHING TV. RESPIRATIONS ARE EVEN AND UNLABORED WITH NO SIGNS OF DISTRESS. NO SIGNS OF ANY PAIN OR DISCOMFORTS AT THIS TIME. ALL SAFETY PRECAUTIONS IN PLACE WITH CALL LIGHT IN REACH.W ILL CONTINUE TO MONITOR
--- NOTE | 2020-01-31 20:34 | NUR ---
PT LAYING IN BED RESTING, NO APPARENT DISTRESS, RESPIRATIONS REG & UNLABORED. PHYSICAL ASSESMENT COMPLETE. PT CURRENTLY DENIES PAIN OR DISCOMFORT. SCHEDULED MEDS ADMINISTERED, SEE E-MAR. PT DENIES ANY NEEDS AT THIS TIME. PLAN OF CARE REVIEWED, PT DENIES QUESTIONS, VERBALIZES UNDERSTANDING. ITEMS WITHIN REACH, BED LOCKED IN LOW POSITION W/ BEDRAILS UP X2. CALL EVANS WITHIN REACH, AGREES TO CALL PRN.
[2020-02-01 00:27] VITALS: BP 124/71
--- NOTE | 2020-02-01 02:49 | NUR ---
PT CALLS AND STATES "I CANT FEEL THE OXYGEN, I CANT BREATHE", UPON ENTERING ROOM PT IN HIGH FOWLERS, RESPIRATIONS LABORED, LUNG SOUNDS WHEEZES AND DIMINISHED BASES ON AUSCULTATION. SPO2 88% ON O2 AT 2 L/M VIA NC. O2 INCREASED TO 3 L/M VIA NC AND PT GUIDED THROUGH DEEP BREATHING. SPO2 INCREASED TO 97%. RESPIRATIONS LESS LABORED. CONSULTED W/ RT, PT REQUESTING NEB TX. RT AWARE, SEE EMAR FOR RTs NEB TX ADMINISTRATION.
[2020-02-01 04:31] VITALS: BP 128/72
[2020-02-01 07:37] VITALS: BP 128/81
--- NOTE | 2020-02-01 07:37 | NUR ---
RECIEVED REPORT FROM SO PEARCE. PT RESTING IN HIGH [facility] UPON ENTERING ROOM. INTRODUCED SELF TO PT AND DISCUSSED POC. ASSESSMENT AND VITALS COMPLETED AT THIS TIME. BP 128/81, HR 91, O2 96% ON ROOM AIR. RESPIRATIONS ARE SHALLOW. LUNG SOUNDS ARE COURSE, INHALER TO BE ADMINISTERED WITH MORNING MEDS. HEART RHYTHM IS NORMAL WITH TELE IN PLACE. BOWEL SOUNDS ARE ACTIVE, LAST REPORTED BM 01/28/20, DR AMRTINEZ NOTIFED OF LAST BM. RADIAL AND PEDAL PULSES ARE STRONG WITH NORMAL CAPILLARY REFILL. SKIN IS WARM AND DRY. PT PRESENTS WITH SCABBED AREA ON RIGHT SHOULDER BLADER, PT STATES THAT ITS LUNG CANCER. PT PRESENTS WITH COUGH, NO SIGNS OF ANY SPUTUM AT THIS TIME. PT DENIES ANY PAINS OR DISCOMFORTS AT THIS TIME. ALL SAFETY PRECAUTIONS REMAIN IN PLACE WITH CALL LIGHT IN REACH. WILL CONTINUE TO MONITOR
--- NOTE | 2020-02-01 10:05 | NUR ---
LACTULOSE ADMINISTERED TO ASSIST WITH BM . RESPIRATIONS ARE EVEN AND UNLABORED WITH NO SIGNS OF DSITRESS. ALL SAFETY PRECAUTIONS IN PLACE WITH CALL LIGHT IN REACH, WILL CONTINUE TO MONITOR
--- NOTE | 2020-02-01 12:48 | NUR ---
PT RESTING IN HIGH FOWLERS POSITION WATCHING TV. RESPIRATIONS ARE EVEN AND UNLABORED WITH NO SIGNS OF DISTRESS. PT REPORT NO BM AT THIS TIME, DR. SANTIZO NOTIFIED. PT DENIES ANY PAIN OR DSICOMFORTS.ALL SAFETY PRECAUTIONS REMAIN IN PLACE WITH CALL LIGHT IN REACH. WILL CONTINUE TO MONITOR
--- NOTE | 2020-02-01 12:50 | NUR ---
DR SANTIZO AT BEDSIDE DISCUSSING POC
--- NOTE | 2020-02-01 13:16 | NUR ---
PHARMACY INTERN AT [facility] AT YTHIS TIME
--- NOTE | 2020-02-01 13:45 | NUR ---
S: NICOLÁS MORGAN is a 74 M who presents with gram positive blood culture. He has a history of HTN, COPD, and leukemia. All medications in patient's chart were reviewed. O: VS: BP 128/81 mmHg, P 91 bpm, RR 20 breaths/min, T 97 F W 70.1 kg, HT 177.8 cm, Scr= 0.4 mg/dL, CrCl= 61 ml/min A: Blood culture on 01/27 showed staphylococcus haemolyticus sensitive to vancomycin. Sputum culture on 01/28 showed normal respiratory jody. P: Patient is on levofloxacin 750 mg IV Q24H. Vancomycin ordered for pharmacy to dose. Patient was on vancomycin 750 mg IV Q12H. Trough level on 01/30 was <5. Change to Vancomycin 1g IV Q8H. Vancomycin trough is drawn before the 4th dose on 02/01 at 1530. Vancomycin goal trough is between 15-20 mcg/ml. Pharmacy will follow and or advise on antibiotics use as needed.
--- NOTE | 2020-02-01 14:35 | NUR ---
PT INFORMED WRITTER THAT HE DID HAVE A LARGE SIZE BM. PT REFUSED MAG CITRATE SINCE HE ALREADY HAD BM.RESPIRATIONS ARE EVEN AND UNLABORED WITH NO SIGNS OF DISTRESS. ALL S AFETY PRECAUTIONS IN PLACE WITH CALL LIGHT IN REACH. WILL CONTINUE TO MONITOR
--- NOTE | 2020-02-01 15:45 | NUR ---
PT RESTING IN SEMI FOLWERS POSITION WATCHING TV. RESPIRATIONS ARE EVEN AND UNALBORED WITH NO SIGNS OF DISTRESS. ALL SAFETY PRECAUTIONS ARE IN PLACE WITH CALL LIGHT IN REACH. WILL CONTINUE TO MONITOR.
[2020-02-01 19:12] VITALS: BP 154/85
--- NOTE | 2020-02-01 20:40 | NUR ---
PT LAYING IN BED RESTING, NO APPARENT DISTRESS, RESPIRATIONS REG & UNLABORED. PHYSICAL ASSESMENT COMPLETE. PT CURRENTLY DENIES PAIN OR DISCOMFORT. SCHEDULED MEDS ADMINISTERED, SEE E-MAR. PT DENIES FURTHER NEEDS AT THIS TIME. PLAN OF CARE REVIEWED, PT DENIES QUESTIONS, VERBALIZES UNDERSTANDING. ITEMS WITHIN REACH, BED LOCKED IN LOW POSITION W/ BEDRAILS UP X2. CALL EVANS WITHIN REACH, AGREES TO CALL PRN.
--- NOTE | 2020-02-01 23:20 | NUR ---
PRN ROBITUSSIN ADMINISTERED FOR PERSISTENT COUGH AND PRN APAP ADMINISTERED FOR C/O "THROBBING HEADACHE" 11/24. SEE E-MAR.
[2020-02-01 23:49] VITALS: BP 140/81
--- NOTE | 2020-02-02 00:22 | NUR ---
600 ML CLEAR YELLOW URINE DUMPED FROM URINAL. PT DENIES FURTHER NEEDS. CALL EVANS REMAINS WITHIN REACH, AGREES TO CALL PRN.
--- NOTE | 2020-02-02 02:15 | NUR ---
DANIELA MARTINEZ PROVIDED PER PTS REQUEST. PT STATES HE WOKE UP HUNGRY. DENIES FURTHER NEEDS. CALL EVANS REMAINS WITHIN REACH, AGREES TO CALL PRN.
--- NOTE | 2020-02-02 03:44 | NUR ---
300 ML CLEAR YELLOW URINE EMPTIED FROM URINAL, PT DENIES FURTHER NEEDS AT THIS TIME. CALL EVANS WITHIN REACH, AGREES TO CALL PRN.
[2020-02-02 04:46] VITALS: BP 141/85
[2020-02-02 05:17] LABS: HEMATOCRIT 32.3 % (39.0-50.0); HEMOGLOBIN 9.4 g/dl (14.0-18.0); MEAN CELL VOLUME 94.2 fL CALC (80.0-100.0); MEAN CORPUSCULAR HGB 27.4 pG CALC (26.0-32.0); MEAN CORPUSCULAR HGB CONC 29.1 g/dL CAL (32.0-36.0); RED BLOOD COUNT 3.43 mill/uL (4.70-6.10); RED CELL DISTRI WIDTH 17.8 % (11.5-15.5)
[2020-02-02 05:40] LABS: BUN 18 mg/dL (8-23); BUN/CREATININE RATIO 38 (12-20 (CALC)); CHLORIDE 89 mmol/l (95-108); CREATININE 0.5 mg/dL (0.7-1.3); GFR > 60 ML/MIN (>=60 (CALC)); GFR FOR AFR.AMER. > 60 ML/MIN (>=60 (CALC)); SODIUM 133 mmol/l (137-146)
[2020-02-02 05:47] LABS: ANION GAP 6 (6-22 (CALC))
[2020-02-02 05:49] LABS: CARBON DIOXIDE 42 mmol/l (22-30)
--- NOTE | 2020-02-02 05:54 | NUR ---
"CRITICAL" SERUM CO2 OF [address] GARCIA THIS AM. NO NEW ORDERS. PT IN NO DISTRESS. RESPIRATIONS REGULAR AND UNLABORED. CALL EVANS WITHIN REACH, AGREES TO CALL PRN.
--- NOTE | 2020-02-02 07:20 | NUR ---
PT RESTING IN BED, NO SIGNS OF DISTRESS NOTED, RESP EVEN AND UNLABORED. PT ALERT AND ORIENTED X3, DISCUSSED POC, PT VOICES NO NEEDS OR COMPLAINTS AT THIS TIME. ASSESSMENT COMPLETED, CALL LIGHT IN REACH,CONTINUE TO MONITOR.
[2020-02-02 07:24] VITALS: BP 125/80
[2020-02-02 10:30] VITALS: BP 129/76
--- NOTE | 2020-02-02 12:00 | NUR ---
PT SITTING ON SIDE OF BED EATING LUNCH, NO SIGNS OF DISTRESS NOTED, RESP EVEN AND UNLABORED. CALL LIGHT IN REACH,CONTINUE TO MONITOR.
[2020-02-02 15:00] VITALS: BP 135/78
--- NOTE | 2020-02-02 16:51 | NUR ---
PT VANCO TROUGH 9, IV VANCO INFUSION INITATED AND COUGH SYRUP PROVIDED. CALL LIGHT IN REACH,CONTINUE TO MONITOR.
--- NOTE | 2020-02-02 19:00 | NUR ---
REPORT RECEIVED FROM Phillip CUMMINGS LPN, CARE OF PT ASSUMED AT THIS TIME.
[2020-02-02 19:05] VITALS: BP 136/80
--- NOTE | 2020-02-02 20:45 | NUR ---
PT LAYING IN BED RESTING, NO APPARENT DISTRESS, RESPIRATIONS REG & UNLABORED. PHYSICAL ASSESMENT COMPLETE. PT CURRENTLY DENIES PAIN OR DISCOMFORT, C/O PERSISTENT COUGH AND REQUEST PRN ANTITUSSIVE. PRN ROBITUSSIN ADMINISTERED AND SCHEDULED MEDS ADMINISTERED, SEE E-MAR. PT DENIES NEEDS AT THIS TIME. PLAN OF CARE REVIEWED, PT DENIES QUESTIONS, VERBALIZES UNDERSTANDING. ITEMS ON RIGHT SIDE AND WITHIN REACH, BED LOCKED IN LOW POSITION W/ BEDRAILS UP X2. CALL EVANS WITHIN REACH, AGREES TO CALL PRN.
--- NOTE | 2020-02-02 22:05 | NUR ---
PER RT, PT DECLINES SCHEDULED NEB TX. SEE E-MAR.
--- NOTE | 2020-02-02 23:40 | NUR ---
NEW IV TO R FA 22G STARTED BY Richi PANCHAL, X1 ATTEMPT. IV TO L AC 18G D/C'd RE: SITE DUE TO CHANGE. CATHETER INTACT. 300ML CLEAR YELLOW URINE EMPTIED FROM URINAL.
[2020-02-03] VITALS (7 sets, daily range): BP systolic 137–155; BP diastolic 81–88
--- NOTE | 2020-02-03 07:04 | NUR ---
PT RESTING IN BED, NO SIGNS OF DISTRESS NOTED, RESP EVEN AND UNLABORED. PT ALERT AND ORIENTED X3, DISCUSSED POC, PT VOICES NO NEEDS OR COMPLAINTS AT THIS TIME, ASSESSMENT COMPLETED, CALL LIGHT IN REACH,CONTINUE TO MONITOR.
--- NOTE | 2020-02-03 09:25 | NUR ---
PT MEDICATED PER MAR, ENCOURAGED PT TO TAKE NEB TX, PT VERBALIZED UNDERSTANDING. CALL LIGHT IN REACH,CONTINUE TO MONITOR.
--- NOTE | 2020-02-03 14:48 | NUR ---
pt is receiving vancomycin for positve blood cx with goal trough 15-20 mcg/ml. trough yesterday was 9. increased dose to 1500mg iv q8h starting today @ 0900. will re-check trough tomorrow @ 0830, goal remains 15-20. pharmacy will continue to follow
--- NOTE | 2020-02-03 15:00 | NUR ---
PT MEDICATED WITH TYLENOL AND COUGH SYRUP, NO SIGNS OF DISTRESS NOTED, RESP EVEN AND UNLABORED. CALL LIGHT IN REACH,CONTINUE TO MONITOR.
--- NOTE | 2020-02-03 19:00 | NUR ---
REPORT RECEIVED FROM Phillip CUMMINGS LPN, CARE OF PT ASSUMED AT THIS TIME.
--- NOTE | 2020-02-03 20:40 | NUR ---
PT LAYING IN BED RESTING, NO APPARENT DISTRESS, RESPIRATIONS REG & UNLABORED. PHYSICAL ASSESMENT COMPLETE. PT CURRENTLY DENIES PAIN OR DISCOMFORT, C/O PERSISTENT COUGH AND REQUEST PRN ANTITUSSIVE. PRN ROBITUSSIN ADMINISTERED AND SCHEDULED MEDS ADMINISTERED, SEE E-MAR. HS SNACK PROVIDED PER PTS REQUEST.PT DENIES FURTHER NEEDS AT THIS TIME. PLAN OF CARE REVIEWED, PT DENIES QUESTIONS, VERBALIZES UNDERSTANDING. ITEMS WITHIN REACH, BED LOCKED IN LOW POSITION W/ BEDRAILS UP X2. CALL EVANS WITHIN REACH, AGREES TO CALL PRN.
--- NOTE | 2020-02-03 22:54 | NUR ---
PRN APAP ADMINISTERED FOR C/O HEADACHE, PT RATES 5/10, DESCRIBES THROBBING, CONTRIBUTES TO PERSISTENT COUGH. IV LEVAQUIN INITIATED SCHEDULED. SEE E-MAR. 400ML CLEAR YELLOW URINE EMPTIED FROM URINAL. HS SNACK PROVIDED PER PT'S REQUEST.
[2020-02-04 04:00] VITALS: BP 144/96
--- NOTE | 2020-02-04 07:30 | NUR ---
RECIEVED REPORT FROM SO PEARCE. PT RESTING IN SEMI FOWLERS POSITION UPON ENTERING ROOM. RESPIRATIONS ARE EVEN AND UNALBORED WITH NO SIGNS OF DISTRESS. INTRODUCED SELF TO PT AND DISCUSSED POC. ALL SAFETY PRECAUTIONS IN PLACE WITH CALL LIGTH IN REACH. WILL CONTINUE TO MONITOR.
--- NOTE | 2020-02-04 08:11 | NUR ---
DR SANTIZO AT BEDSIDE DISCUSSING POC WITH PT
[2020-02-04 08:57] VITALS: BP 148/99
--- NOTE | 2020-02-04 08:58 | NUR ---
ASSESSMENT AND VITALS COMPLETED AT THIS TIME. BP 148/99, HR 107, O2 97% ON 3L NC. RESPIRATIONS ARE EVEN AND UNLABORED WITH NO SIGNS OF DISTRESS. PT DOES COMPLAIN OF SOB. NEB TREATMENT ADMINSITERED. HEART RHYTHM IS NORMAL WITH TELE IN PLACE. BOWEL SOUNDS ARE ACTIVE IN ALL QUADRANTS WITH NO TENDERNESS. LAST REPORTED BM 02/03/20. RADIAL AND PEDAL PULSES ARE STRONG WITH NORMAL CAPILLARY REFILL. SKIN IS WARM AND DRY. PT DOES PRESENT WITH SCABBED AREA ON RIGHT SHOULDER, PT STATES ITS FROM SKIN CANCER.#22 IN RFA FLUSHED, SITE APPEARS HEALTHY AND PATENT. PT DENIES ANY PAIN OR DISCOMFORTS AT THIS TIME. ALL SAFETY PRECAUTIONS ARE IN PLACE WITH CALL LIGHT IN REACH.
--- NOTE | 2020-02-04 10:30 | NUR ---
S: NICOLÁS MORGAN is a 74 M who presents with gram positive blood culture. He has a history of hypertension, COPD, and leukemia. All medications in patient's chart were reviewed. O: VS: BP 148/99 mmHg, P 107 bpm, RR 19 breaths/min, T 97.2 F W 70.3 kg, HT 177.8 cm, Scr= 0.5 mg/dL, CrCl= 61 ml/min A: Blood culture showed staphylococcus haemolyticus which is sensitive to vancomycin. Sputum culture showed normal respiratory jody. P: Patient is on levofloxacin 750 mg IV Q24H. Vancomycin ordered for pharmacy to dose. Vancomycin trough level is 15 mcg/ml on 02/04/20. Continue with Vancomycin 1500mg IV Q8H. Vancomycin trough is drawn before the 4th dose on 02/05/20 at 0830. Vancomycin goal trough is between 15-20 mcg/ml. Pharmacy will follow and or advise on antibiotics use as needed.
--- NOTE | 2020-02-04 11:06 | NUR ---
MONITOR CALLED TO NOTIFY NURSE OF FREQUENT INCREASES IN HEART RATE UP TO THE 170S UNSUSTAINED; CONTINUES AFIB; PT ASMYPTOMATIC. EKG ORDERED AND RT NOTIFIED.
--- NOTE | 2020-02-04 11:09 | NUR ---
ER TELE MONITORING CALLED INFORMING WRITTER THAT PT WAS IN VTACH 170S. UPON ENTERING ROOM PT IS FINISHING NEB TREATMENT. PT IS ASYPTEMATIC AT THIS TIME. NOTIFIED. ALL SAFETY PRECAUTIONS IN PLACE WITH CALL LIGHT IN REACH. WILL CONTINUE TO MONITOR
--- NOTE | 2020-02-04 11:14 | NUR ---
RESPIRATORY THERAPY IN ROOM CONDUCTING EKG AT THIS TIME
[2020-02-04 11:22] VITALS: BP 148/94
--- NOTE | 2020-02-04 11:26 | NUR ---
PT NOTE MR. MORGAN WAS IN SUPINE POSITION UPON ENTERING ROOM. PT. GRETCHEN AGREED IN THERAPY THIS A.M. SUPINE>SIT (INDEPENDENT), SIT>STAND (independent) vc for correct hand placement as he ascends to a standing position. LOB noted as pt. stands. Staic standing LOB noted to pt. left side. (GGA) Two steps forward and back x 5, LOB noted(MIN A), Stand>sit (Independent) VC for correct hand placement. Supine ankle pumps, heel slides and abduction bilaterally. Pt O2 and heart monitored through out session. all vitals stayed WNL. Tray table and call hammer by pt. side as exited room. [facility] 6 score 14
[2020-02-04 12:04] VITALS: BP 143/81
--- NOTE | 2020-02-04 12:38 | NUR ---
PT RESTING IN SEMI FOWLERS POSITION WATCHING TV. RESPIRATIONS ARE EVEN AND UNLABORED WITH NO SIGNS OF DISTRESS. PT DENEIS ANY PAIN OR DISCOMFORTS AT THIS TIME. ALL SAFTEY PRECAUTIONS ARE IN PLACE WITH CALL LIGHT IN REACH.WILL CONTINUE TO MONITOR
[2020-02-04 16:05] VITALS: BP 138/81
--- NOTE | 2020-02-04 16:10 | NUR ---
PT RESTING IN HIGH FOWLERS POSITION WATCHING TV. RESPIRATIONS ARE EVEN AND UNLABORED WTIH NO SIGNS OF DISTRESS. PT DENIES OF ANY PAIN OR DISCOMFORTS AT THIS TIME. ALL SAFETY PRECAUTIONS ARE IN PLACE WITH CALL LIGHT IN REACH. WILL CONTINUE TO MONITOR
[2020-02-04 19:24] VITALS: BP 122/75
[2020-02-05 00:15] VITALS: BP 148/84
[2020-02-05 04:45] VITALS: BP 130/77
--- NOTE | 2020-02-05 07:40 | NUR ---
REPORT RECIEVED FROM YENNY MORGAN. PT SLEEPING IN LOW FOWLERS POSITION UPON ENTERING ROOM. RESPIRATIONS ARE EVEN AND UNLABORED WITH NO SIGNS OF DISTRESS. NO SIGNS OF ANY PAIN AT THIS TIME. ALL SAFETY PRECAUTIONS ARE IN PLACE WITH CALL LIGHT IN REACH. WILL CONTINUE TO MONITOR
[2020-02-05 08:28] VITALS: BP 141/83
--- NOTE | 2020-02-05 08:28 | NUR ---
ASSESSMENT AND VITALS COMPLETED AT THIS TIME.BP 141/83, HR 102, O2 100% ON 3L NC.PT OXYGEN REDUCED TO 2L NC, PT SATING 95%, INFORMED PT THAT IF HE STARTED TO FEEL SOB TO CALL WRITTER. PT VERBALIZED UNDERSTANDING. RESPIRATIONS ARE EVEN AND UNLABORED WITH NO SIGNS OF DISTRESS. LUNG SOUNDS ARE DIMINSHED, PT DENIES ANY SOB. HEART RHYTHM IS NORMAL WITH TELE IN PLACE. BOWEL SOUNDS ARE ACTIVE IN ALL QUADRANTS WITH NO TENDERNESS, LAST REPORTED BM 02/04/20. RADIAL AND PEDAL PULSES ARE STRONG WITH NORMAL CAPILLARY REFILL. PT COMPLAINS OF COUGHA T THIS TIME, PT INFORMS WRITTER THAT THICK WHITE SPUTUM IS PRESENT, NON AT THIS TIME. ROBITUSSIN ADMINSITERED [facility] MORNING MEDS. #22G FLUSHED, SITE APPEARS HEALTHY AND PATENT. PT DENEIS ANY PAIN OR DISOCMFORTS AT THIS TIME. ALL SAFETY PRECAUTIONS ARE IN PLACE WITH CALL LIGHT IN REACH. WILL CONTINUE TO MONITOR.
--- NOTE | 2020-02-05 09:10 | NUR ---
LAB AT BEDSIDE WITH PT FOR REALO THROUGH
--- NOTE | 2020-02-05 10:23 | NUR ---
PT AT BEDSIDE WORKING WITH PT AT THIS TIME
--- NOTE | 2020-02-05 10:29 | NUR ---
S: NICOLÁS MORGAN is a 74 M who presents with COPD. He has a history of heart disease, lung disease and chemothrapy. All medications in patient's chart were reviewed. O: VS: BP 141/83 mmHg, P 101 bpm, RR 19 breaths/min, T 97.4 F W 70.08 kg, HT 177.8 cm, Scr= 0.5 mg/dL, CrCl= 61 ml/min A: Blood culture final is showing stayphylococcus haemolyticus which is sensitive vancomycin. Sputum culture final is showing normal respiratory jody/48hrs. P: Patient is on levofloxacin 750mg IV Q24H. Vancomycin ordered for pharmacy to dose. Vancomycin trough level is 17 on February 05, 2020 Continue Vancomycin 1500mg IV Q8H. Vancomycin trough is drawn before the 4th dose on 02/06/2020 0830. Vancomycin goal trough is between 15-20 mcg/ml. Pharmacy will follow and or advise on antibiotics use as needed.
--- NOTE | 2020-02-05 10:48 | NUR ---
patient was seen for gait training and therex. Supine to sitting on EOB independently. Gait training with CGA no LOB occured. Marching in place 3x10, standing heel raises 2x10, mini squats 2x10, standing hip abduction 1x10, sit to stand x3, LAQ with 5SH 2x10.
--- NOTE | 2020-02-05 12:02 | NUR ---
PT SITTING UP ON SIDE OF BED WATCHING TV AND EATING LUNCH. RESPIRATIONS ARE EVEN AND UNLABORED. PT DENIES ANY PAIN OR DISCOMFORTS AT THIS TIME. ALL SAFETY PRECAUTIONS REMAIN IN [place] WITH CALL LIGHT IN REACH. WILL CONTINUE TO MONITOR
[2020-02-05 12:26] VITALS: BP 137/84
--- NOTE | 2020-02-05 15:47 | NUR ---
PT RESTING IN HIGH FOWLERS POSITION WATCHING TV. RESPIRATIONS ARE EVEN AND UNLABORED WITH NO SIGNS OF DISTRESS. PT DENIES ANY PAIN OR DISCOMFORTS AT THIS TIME. ALL SAFETY PRECAUTIONS ARE IN PLACE WITH CALL LIGHT IN REACH. WILL CONTINUE TO MONITOR
[2020-02-05 15:54] VITALS: BP 132/72
[2020-02-05 19:19] VITALS: BP 134/77
--- NOTE | 2020-02-05 21:25 | NUR ---
PT LAYING IN BED RESTING, NO APPARENT DISTRESS, RESPIRATIONS REG & UNLABORED. PHYSICAL ASSESMENT COMPLETE. PT REPORTS HEADACHE 3/10 AND PERSISTENT COUGH. PRN APAP AND PRN ROBITUSSIN GIVEN PER HIS REQUEST AND SCHEDULED MEDS ADMINISTERED, SEE E-MAR. ENSURE AND DANIELA CRACKERS PROVIDED PER PT'S REQUEST. PT DENIES ANY FURTHER NEEDS AT THIS TIME. PLAN OF CARE REVIEWED, PT DENIES QUESTIONS, VERBALIZES UNDERSTANDING. ITEMS WITHIN REACH, BED LOCKED IN LOW POSITION W/ BEDRAILS UP X2. CALL EVANS WITHIN REACH, AGREES TO CALL PRN.
[2020-02-06 00:25] VITALS: BP 144/83
[2020-02-06 04:00] VITALS: BP 134/83
[2020-02-06 05:50] LABS: HEMOGLOBIN 10.2 g/dl (14.0-18.0); MEAN CELL VOLUME 92.8 fL CALC (80.0-100.0); MEAN CORPUSCULAR HGB 27.1 pG CALC (26.0-32.0); MEAN CORPUSCULAR HGB CONC 29.1 g/dL CAL (32.0-36.0); RED BLOOD COUNT 3.77 mill/uL (4.70-6.10); RED CELL DISTRI WIDTH 18.4 % (11.5-15.5)
[2020-02-06 06:12] LABS: BUN 29 mg/dL (8-23); BUN/CREATININE RATIO 60 (12-20 (CALC)); CHLORIDE 90 mmol/l (95-108); CREATININE 0.5 mg/dL (0.7-1.3); GFR > 60 ML/MIN (>=60 (CALC)); GFR FOR AFR.AMER. > 60 ML/MIN (>=60 (CALC)); POTASSIUM 3.7 mmol/l (3.5-5.1); SODIUM 133 mmol/l (137-146)
[2020-02-06 06:19] LABS: ANION GAP 6 (6-22 (CALC))
[2020-02-06 06:23] LABS: CARBON DIOXIDE 41 mmol/l (22-30)
--- NOTE | 2020-02-06 06:27 | NUR ---
SERUM CO2 41, PREVIOUS SERUM CO2 42 ON 02/02/20, PT SLEEPING, RESPIRATIONS REGULAR AND UNLABORED. NO APPARENT DISTRESS. APPEARS COMFORTABLE. DR. GREGG MADE AWARE OF CRITICAL LAB VALUE. NO NEW ORDERS.
--- NOTE | 2020-02-06 06:31 | NUR ---
PHYSICAL ASSESMENT UNCHANGED FROM BEGINING OF SHIFT BASELINE ASSESMENT. AM HEMODYNAMICS WNL/ STABLE. PT AFEBRILE. PT DENIES NEEDS AT THIS TIME. ITEMS REMAIN WITHIN REACH, BED REMAINS LOCKED IN LOW POSITION W/ BEDRAILS UP X2. CALL EVANS REMAINS WITHIN REACH, AGREES TO CALL PRN.
--- NOTE | 2020-02-06 07:30 | NUR ---
RECIEVED REPORT FROM SO PEARCE. PT RESTING IN E FOWLERS POTIION UPON ENTERING ROOM. RESPIRATIONS ARE EVEN AND UNLABORED WITH NO SIGNS OF DISTRESS. PT DENIES ANY PAIN OR DISCOMFORTS AT THIS TIME. ALL SAFETY PRECAUTIONS ARE IN PLACE WITH CALL LIGHT IN REACH. WILL CONTINUE TO MONITOR
--- NOTE | 2020-02-06 07:55 | NUR ---
RECIEVED REPORT FROM KEKE RIZZO. PT RESTING IN SEMI FOWLERS POSTIION UPON ENTERING ROOM. ASSESSMENT AND VITASL COMPLETED AT THIS TIME. BP 150/90, HR 53, 02 97% ON ROOM AIR. RESPIRATIONS ARE EVEN AND UNLABORED WITH NO SIGNS OF DISTRESS. LUNG SOUNDS ARE CLEAR. HEART RHYTHM IS NORMAL WITH TELE IN PLACE. BOWEL SOUNDS AREA CTIVE IN ALL QUADRANTS WITH NO TENDERENESS. LAST REPORETD BM 02/05/20. RADIAL AND PEDAL PULSES ARE STRONG WITH NORMAL CAPILLARY REFILL. PT PRESENTS WITH MODERATLY REDDENED SKIN TO BLL. ADVISTED PT TO ELVATE, PT REFUSED. #20G IN RAC FLUSHED, SITE APPEARS HEALTHY AND PATENT. IV IS DUE FOR CHANGING BUT PT REFUSED STATING,"IF IT WORKS THEN KEEP IT." PT DENIES ANY PAIN OR DISCOMFORTS AT THIS TIME. ALL SAFETY PRECAUTINS ARE IN PLACE WITH CALL LIGHT IN REACH. WILL CONTINUE TO MONITOR
--- NOTE | 2020-02-06 08:27 | NUR ---
DR SANTIZO AT BEDSIDE DISCUSSING POC.
--- NOTE | 2020-02-06 09:49 | NUR ---
PT AT BEDSIDE AT THIS TIME.
[2020-02-06 10:06] VITALS: BP 142/79
--- NOTE | 2020-02-06 10:06 | NUR ---
ASSESSMENT AND VITALS COMPLETED AT THIS TIME. BP 142/79, HR 93, O2 98% ON ROOM AIR. REPSIRATIONS ARE EVEN AND UNLABORED WITH NO SIGNS OF DISTRESS. LUNG SOUNDS HAVE WHEEZING, PT DENIES ANY SOB AT THIS TIME. HEART RHYTHM IS NORMAL WITH TELE IN [place]. BOWEL SOUNDS ARE ACTIVE IN ALL QUADRANTS WITH NO TENDERNESS. LAST REORTED BM 02/06/20. RADIAL AND PEDAL PULSES ARE STRONG WITH NORMAL CAPILLARY REFILL. SKIN IS WARM AND DRY WITH NO EDEMA. #22 IN RFA FLUSHED, SITE APPEARS HEALTHY AND PATENT. PT DENEIS ANY PAIN OR DISCOMFORTS AT THIS TIME. ALL SAFETY PRECAUTIONS ARE IN PLACE WITH CALL LIGHT IN REACH.WILL CONTINUE TO MONITOR
[2020-02-06 10:30] VITALS: BP 136/71
--- NOTE | 2020-02-06 11:28 | NUR ---
S: NICOLÁS MORGAN is a 74 M who presents with bacteremia. He has a history of hypertension, COPD, and leukemia. All medications in patient's chart were reviewed. O: VS: BP 136/71 mmHg, P 90 bpm, RR 19 breaths/min, T 97.6 F W 69.8 kg, HT 177.8 cm, Scr= 0.5 mg/dL, CrCl= 61 ml/min A: Blood culture on 01/30 showed no growth. Sputum culture on 01/28 showed normal respiratory jody. Vancomycin trough level is 16 mcg/mL on 02/05. P: Vancomycin ordered for pharmacy to dose. Vancomycin trough level is at goal. Continue Vancomycin 1500mg IV Q8H. Vancomycin trough is drawn before the dose on 02/07 at 0830. Vancomycin goal trough is between 15-20 mcg/ml. Pharmacy will follow and or advise on antibiotics use as needed.
[2020-02-06] MEDS ORDERED: PREDNISONE10 MG PO (12:37)
[2020-02-06] MEDS ORDERED: LASIX20 MG PO (12:37)
--- NOTE | 2020-02-06 12:38 | NUR ---
PT SITTING UP ON SIDE OF BED EATING LUNHC. RESPIRATIONS ARE EVEN AND UNLABORED WITH NO SIGNS OF DISTRESS. PT DENIES ANY PAIN OR DISCOMFORTS AT THIS TIME. ALL SAFTEY PRECAUTIONS ARE IN PLACE WITH CALL LIGTH IN REACH. WILL CONTINUE TO MONITOR.
[2020-02-06] MEDS ORDERED: ZYVOX600 MG PO (12:39)
--- NOTE | 2020-02-06 13:02 | NUR ---
Explained treatment to patient of which he agreed to in room ambulation and therapeutic exercises. Supine to sit to stand with CGA, pt. used O2 via NC throughout treatment. Pt. ambulated in room 2x 30 feet with CGA x1 with verbal cues for breathing technique. Pt. also performed x 10 repetitions: seated LAQ exercises, standing heel raises and standing marching in place. 02 sats maintained 90-95% throughout treatment. Pt. returned to resting in bed with call light+bedside table within reach and is without questions/concerns. AMPAC score:14.
--- NOTE | 2020-02-06 13:12 | NUR ---
NEDA BLANKENSHIP FROM DR HARTLEY OFFICE AT BEDSIDE DISCUSSING POC WITH PT
[2020-02-06 15:00] VITALS: BP 147/86
--- NOTE | 2020-02-06 16:21 | NUR ---
EDUCATED PT ON DISCHARGE INSTRUCTIONS AND NEW MEDICTAIONS; LASIX, PRESNISONE, ZYVOX. PT VERBALIZED UNDERSTANDING. IV REMOVED WITH CATHATER STILL INTACT, PT TOELRATED WELL. AWAITING FOR TRANSPORTATION AT THIS TIME, ALL SAFETY PRECAUTIONS ARE IN PLACE WITH CALL LIGTH IN REACH. WILL CONTINUE TO MONITOR
--- NOTE | 2020-02-06 16:31 | NUR ---
Discharge instructions given. Patient verbalizes understanding of same. Discharged in stable condition via Wheelchair to [facility] with staff. All belongings sent with pt. PT DISCHARGED TO [facility] WITH ALL BELONGINGS AND HOME MEDICATIONS FROM PHARMACY. PT LEFT FLOOR VIA WHEELCHAIR ACCOMPAINED BY [facility].
--- NOTE | 2020-02-06 16:34 | NUR ---
Discharge instructions given. Patient verbalizes understanding of same. Discharged in stable condition via Wheelchair to Home with family. All belongings sent with pt. PT LEFT VIA WHEELCHAIR IN STABLE CONDITION WITH ALL BELONGINGS AND HOME MEDICATIONS FROM PHARMACY ACCOMPAINED BY [facility]
== END 2020-02-06 16:30 | disposition home or self-care (01) | DRG 193 ==
LOC: ED 20:58 → ED-I 23:25 → ED 23:38 → MS2 23:39
PROVIDERS: Emergency Medicine; Nurse Practitioner; Nurse Practitioner Family; ADMIT Internal Medicine; ATTEND Internal Medicine
DX: J18.9 Pneumonia, unspecified organism (principal); J96.21 Acute and chronic respiratory failure with hypoxia; J96.22 Acute and chronic respiratory failure with hypercapnia; J44.1 Chronic obstructive pulmonary disease with (acute) exacerbation; C91.10 Chronic lymphocytic leukemia of B-cell type not having achieved remission; R78.81 Bacteremia; I48.20 Chronic atrial fibrillation, unspecified; I50.20 Unspecified systolic (congestive) heart failure; J44.0 Chronic obstructive pulmonary disease with (acute) lower respiratory infection; I11.0 Hypertensive heart disease with heart failure; I25.10 Atherosclerotic heart disease of native coronary artery without angina pectoris; R91.8 Other nonspecific abnormal finding of lung field; I25.2 Old myocardial infarction; T45.516A Underdosing of anticoagulants, initial encounter; Z91.128 Patient's intentional underdosing of medication regimen for other reason; Z79.01 Long term (current) use of anticoagulants; Z95.5 Presence of coronary angioplasty implant and graft; Z87.891 Personal history of nicotine dependence; Z99.81 Dependence on supplemental oxygen; Z79.899 Other long term (current) drug therapy; Z92.3 Personal history of irradiation; Z20.828 Contact with and (suspected) exposure to other viral communicable diseases
CPT/HCPCS: J1650; J3370; Q3014; Q9967

== ENCOUNTER 2020-02-11 09:35 | Inpatient (IN) | payer MEDICARE, MEDICAID ==
[~2020-02-11] VITALS: Ht 177.8 cm; Wt 73.6 kg
[2020-02-11] VITALS (15 sets, daily range): BP systolic 122–178; BP diastolic 62–81
[~2020-02-11 09:35] MED LIST changes: +LASIX20 MG PO; +ZYVOX600 MG PO
--- NOTE | 2020-02-11 09:35 | NUR ---
PATIENT TO ROOM VIA EMS STRETCHER.
--- NOTE | 2020-02-11 10:00 | NUR ---
RECIEVED REPORT FROM TAYLOR RIZZO
[2020-02-11 10:24] LABS: URINE BILIRUBIN - DIPSTICK NEGATIVE (NEGATIVE); URINE BLOOD DIPSTICK LARGE (NEGATIVE); URINE GLUCOSE - DIPSTICK NEGATIVE (NEGATIVE); URINE KETONE NEGATIVE (NEGATIVE); URINE NITRITE - DIPSTICK NEGATIVE (Negative); URINE PROTEIN - DIPSTICK 30 mg/dL (NEG-TRACE)
[2020-02-11 10:25] LABS: URINE LEUK ESTERASE TRACE (NEGATIVE)
[2020-02-11 10:26] LABS: URINE COLOR DK. YELLOW
[2020-02-11 10:27] LABS: URINE AMORPH SEDIMENT MODERATE hpf (NONE-FER); URINE EPITHELIAL CELLS FEW EPI/hpf (0-FEW); URINE MUCUS MODERATE hpf (NONE-FEW)
--- NOTE | 2020-02-11 10:30 | NUR ---
BEGINNING PROCEEDINGS FOR CENTRAL LINE A RESLULT OF LOW BP IN 79 SYSTOLIC AND LEVOFED ORDER. PLAN OF CARE AND PROCEEDURE EXPLAINED TO PT AND CONSENT OBTAINED. PT VERBALIZED UNDERSTANDING.
[2020-02-11 10:43] LABS: MEAN CELL VOLUME 90.3 fL CALC (80.0-100.0); MEAN CORPUSCULAR HGB 27.3 pG CALC (26.0-32.0); MEAN CORPUSCULAR HGB CONC 30.3 g/dL CAL (32.0-36.0); NEUT# 13.02 thou/uL (1.82-7.42); RED CELL DISTRI WIDTH 18.8 % (11.5-15.5)
[2020-02-11 10:56] LABS: ALBUMIN 2.8 g/dL (3.2-5.0); ALKALINE PHOSPHATASE 70 u/l (38-126); BUN 50 mg/dL (8-23); BUN/CREATININE RATIO 80 (12-20 (CALC)); CHLORIDE 84 mmol/l (95-108); CREATININE 0.6 mg/dL (0.7-1.3); GFR > 60 ML/MIN (>=60 (CALC)); GFR FOR AFR.AMER. > 60 ML/MIN (>=60 (CALC)); POTASSIUM 3.9 mmol/l (3.5-5.1); SGOT/AST 25 u/l (19-48); SODIUM 127 mmol/l (137-146); TOTAL PROTEIN 5.2 g/dL (6.3-8.2)
[2020-02-11 11:00] LABS: HEMATOCRIT 27.1 % (39.0-50.0); HEMOGLOBIN 8.2 g/dl (14.0-18.0); IMMATURE GRANULOCYTES 12.4 % (0.0-5.0)
--- NOTE | 2020-02-11 11:00 | NUR ---
CENTRAL LINE PATENT AND BLOOD RETURN POSITIVE. PT DENIES ANY PAIN AND NO SWELLING NOTED. NO BLEEDING AROUND SITE. PROCEEDURE TOLERATED WELL. LEVOFED STARTED
[2020-02-11 11:02] LABS: BILIRUBIN, TOTAL 0.6 mg/dL (0.0-1.4); CARBON DIOXIDE 38 mmol/l (22-30)
[2020-02-11 11:03] LABS: ANION GAP 9 (6-22 (CALC))
--- NOTE | 2020-02-11 11:30 | NUR ---
WENT WITH RADIOLOGY TO CT TO MONITOR PT. LEVOFED AND FLUIDS CONTINUE TO BE ADMINISTERED INTO PATENT SITES. PAIN WAS NOTED IN BACK WHEN PT WAS PLACED ON AND OFF CT GLIDER.
--- NOTE | 2020-02-11 12:00 | NUR ---
PT VITALS CONTINUE TO BE WNL WITHOUT LEVOFED TITRATION
--- NOTE | 2020-02-11 12:30 | NUR ---
PT ASKED FOR FOOD AND A FOOD TRAY IS PROVIDED. PT PLEASED AND DENIES ANY OTHER NEED
--- NOTE | 2020-02-11 13:00 | NUR ---
PT LAYING IN STRETCHER AND COMPLAINS OF PAIN WHEN MOVED. PT REPOSITIONED AND PLAN OF CARE DISCUSSED ALONG WITH WAIT. PT FINISHED 90% OF MEAL. DENIES ANY OTHER NEEDS
[2020-02-11 13:26] LABS: C-REACTIVE PROTEIN 23.6 mg/dL (0-0.9)
--- NOTE | 2020-02-11 13:30 | NUR ---
VITALS CONTINUE TO BE WNL. DENIES ANY NEEDS AT THIS TIME
--- NOTE | 2020-02-11 14:00 | NUR ---
PT STATES THAT HE IS IN PAIN WITHOUT BEING MOVED. ALSO SOME BLOOD IS NOTED ON CENTRAL LINE DRESSING. MD NOTIFIED.
--- NOTE | 2020-02-11 15:00 | NUR ---
CENTRAL LINE DRESSING CHANGED AND APPROVED BY . NO BLEEDING NOTED
--- NOTE | 2020-02-11 15:43 | NUR ---
GAVE REPORT TO WON
--- NOTE | 2020-02-11 16:40 | NUR ---
PT ADVISED OF WAITING TIME. CALL LIGHT WITHIN REACH. HAD A NURSE ASSIST ME WITH REPOSITIONING
--- NOTE | 2020-02-11 17:25 | NUR ---
Admission Note Report Given to: sbar printed to floor Transported by: Wheelchair x Stretcher Transported with: x Nurse Transporter x Patent IV O2 x Attache Location: x ICU MS2
--- NOTE | 2020-02-11 17:30 | NUR ---
PT TO ICU BED 2 VIA STRETCHER ACCOMPANIED BY ER NURSE. PT TRANSFERRED TO BED MAX ASSIST X3. PT IS ALERT AND ORIENTED X3. ADMISSION ASSESSMENT COMPLETED AT THIS TIME. IV PATENT X2. ORIENTED PT TO ROOM AND UNIT. CALL LIGHT IN REACH. WILL CONTINUE TO MONITOR.
--- NOTE | 2020-02-11 17:58 | NUR ---
LAB AT BEDSIDE AT THIS TIME
--- NOTE | 2020-02-11 18:20 | NUR ---
LEVOPHED TITRATED PER TITRATION CHARTING.
--- NOTE | 2020-02-11 19:00 | NUR ---
RECEIVED REPORT FROM AM NURSE. PATIENT RESTING IN BED. VITALS STABLE WILL CONTINUE TO MONITOR.
--- NOTE | 2020-02-11 21:00 | NUR ---
PATIENTS ASSESSMENT COMPLETED. PATIENT STATING HE HAS PAIN IN KNEES AND BACK. VITALS STABLE. LEVOPHED GTT CONTINUES, BLOOD PRESSURE MAINTAINING. MESSAGE SENT TO MD REGARDING PAIN MEDICATION AND FLUID REQUEST DUE TO LOW NA.
--- NOTE | 2020-02-11 22:00 | NUR ---
PATIENT MEDICATED FOR PAIN. PATIENT WITH NO SIGNS OF DISTRESS. PATIENT CONTINUES WITH FLUIDS INFUSING, LEVOPHED GTT. VITALS STABLE. WILL CONTINUE TO MONITOR PATIENT.
[2020-02-12] VITALS (87 sets, daily range): BP systolic 77–184; BP diastolic 35–139
--- NOTE | 2020-02-12 | NUR ---
PATIETN SLEEPING, VITALS STABLE. WILL CONTINUE TO MONITOR PATIENT. PATIENT HAS VOID TWICE. URINE DARK IN COLOR W/ SEDIMENT. WILL CONTINUE TO MONITOR.
--- NOTE | 2020-02-12 02:00 | NUR ---
PATIENT MEDICATED. STILL CONTINUES WITH COMPLAINTS OF BACK PAIN. VITALS STABLE. LEVOPHED CONTINUES AT 4 ON LEVOPHED. BLOOD PRESSURE MAINTAINING. FLUIDS INFUSING. WILL CONTINUE TO MONITOR.
--- NOTE | 2020-02-12 04:00 | NUR ---
PATIENT SLEEPING. PATIENT IN NO DISTRESS. WILL CONTINUE TO MONITOR. LEVOPHED INFUSING. NO CHANGES. WILL CONTINUE TO MONITOR.
--- NOTE | 2020-02-12 04:45 | NUR ---
RECEIVED REPORT FROM CEASAR RIZZO. CARE ASSUMED.
[2020-02-12 05:20] LABS: HEMATOCRIT 26.3 % (39.0-50.0); HEMOGLOBIN 7.9 g/dl (14.0-18.0); MEAN CELL VOLUME 92.6 fL CALC (80.0-100.0); MEAN CORPUSCULAR HGB 27.8 pG CALC (26.0-32.0); RED BLOOD COUNT 2.84 mill/uL (4.70-6.10); RED CELL DISTRI WIDTH 18.8 % (11.5-15.5)
--- NOTE | 2020-02-12 05:30 | NUR ---
PT RESTING IN BED AWAKE. PT IS ALERT AND ORIENTED X3. SHIFT ASSESSMEN COMPLETED AT THIS TIME. IV PATENT X2. LEVOPHED TITRATED PER TITRATION CHARTING. PLAN OF CARE DISCUSSED WITH PATIENT. DIVINETNET VERBALIZED UNDERSTNADING. CALL LIGHT IN REACH. WILL CONTINUE TO MONITOR.
[2020-02-12 05:50] LABS: ANION GAP 5 (6-22 (CALC)); BUN 34 mg/dL (8-23); BUN/CREATININE RATIO 63 (12-20 (CALC)); CARBON DIOXIDE 38 mmol/l (22-30); CHLORIDE 91 mmol/l (95-108); CREATININE 0.5 mg/dL (0.7-1.3); GFR > 60 ML/MIN (>=60 (CALC)); GFR FOR AFR.AMER. > 60 ML/MIN (>=60 (CALC)); MAGNESIUM 2.1 mg/dL (1.6-2.3); POTASSIUM 4.5 mmol/l (3.5-5.1); SODIUM 130 mmol/l (137-146)
--- NOTE | 2020-02-12 07:15 | NUR ---
PT MEDICATED FOR PAIN AT THIS TIME. PT CURSES AT STAFF. PT ENCOURAGED TO NOT CURSE. PT VERBALIZED UNDERSTANDING AND STATES THAT IT IS BECAUSE HE IS IN SO MUCH PAIN. PT ALSO GIVEN HEAT PACKS AND APPLIED TO BACK WELL.
--- NOTE | 2020-02-12 08:00 | NUR ---
DR SANTIZO AT BEDSIDE.
--- NOTE | 2020-02-12 08:54 | NUR ---
PT TO MRI VIA WHEELCHAIR ACCOMPANIED BY NURSE AND HYDROLOGY TEACHER.
--- NOTE | 2020-02-12 09:48 | NUR ---
S: NICOLÁS MORGAN is a 74 M who presents with sepsis. He has a history of hypertension, COPD, lung cancer. All medications in patient's chart were reviewed. O: VS: BP 115/63 mmHg, P 100 bpm, RR 27 breaths/min, T 96.5 F W 68.6 kg, HT177.8 cm, Scr= 1 mg/dL, CrCl= 61.9 ml/min A: Blood culture is pending. P: Patient is on aztreonam 1g IV Q8H. Vancomycin ordered for pharmacy to dose. Start Vancomycin 750mg IV Q12H. Vancomycin trough is drawn before the 4th dose on 02/12 at 2030. Vancomycin goal trough is between 15-20 mcg/ml. Pharmacy will follow and or advise on antibiotics use as needed.
--- NOTE | 2020-02-12 10:30 | NUR ---
PT RETURNED FROM MRI. PT SHAKING AT THIS TIME. PT NOT WANTING TO TRANSFR FROM WHEELCHAIR BACK TO BED. PT LIFTED AND PLACED BACK IN BED.
--- NOTE | 2020-02-12 10:43 | NUR ---
RAPID RESPONSE CALLED AT THIS TIME DUE TO RESP DISTRESS AND VTACH ON MONITOR 1047- ALL RAPID RESPONSE TEAM MEMBERS AT BEDSIDE. ABG OBTAINED EKG OBTAINED HSAKA YEN AT BEDSIDE DR SWANSON AT BEDSIDE CARDIZEM 15MG IVP ORDERED BY SHAKA YEN. 1113- IT WAS NOTED THAT CARDENE 15MG GIVEN IVP GIVEN BASED ON MED PULLED FROM PYXIS. BP 90/53. BP SET TO BE TAKEN EVERY 2 MINUTES. THIS NURSE REMAINS AT BEDSIDE TO MONITOR FOR SIDE EFFECTS. DR SANTIZO NOTIFIED. PHARMACY NOTIFIED. POISON CONTROL NOTIFIED. PT PLACED ON LEVOPHED PER TITRATION CHARTING. 1145- ALEXANDER PLACED AT THIS TIME.
--- NOTE | 2020-02-12 12:40 | NUR ---
DR SANTIZO AT BEDSIDE TO EVALUATE PATIENT.
--- NOTE | 2020-02-12 13:13 | NUR ---
RADIOLOGY AT BEDSIDE AT THIS TIME.
--- NOTE | 2020-02-12 13:30 | NUR ---
DR VIEIRA AT BEDSIDE AT THIS TIME
--- NOTE | 2020-02-12 13:30 | NUR ---
INFECTIOUS DISEASE CONSULT PLACED.
--- NOTE | 2020-02-12 13:47 | NUR ---
Patient is screened for PT intervention and it is felt he would benefit when medivally stable
--- NOTE | 2020-02-12 13:55 | NUR ---
DISCUSSED CARDENE BEING GIVEN IV PUSH INSTEAD OF CARDENE WITH PATIENT. PATIENT VERBALIZED UNDERSTANDING. ASKED PATIENT IF HE HAS ANY QUESTIONS OR CONCERNS. PT STATES "NO I THINK YOU ARE TAKING VERY GOOD CARE OF ME". VSS REMAIN STABLE ON MONITOR. CALL LIGHT IN REACH. BED ALARM IN PLACE FOR PT SAFETY. WILL CONTINUE TO MONITOR.
--- NOTE | 2020-02-12 13:55 | NUR ---
DISCUSSED CARDENE BEING GIVEN IV PUSH INSTEAD OF CARDIZEM WITH PATIENT. PATIENT VERBALIZED UNDERSTANDING. ASKED PATIENT IF HE HAS ANY QUESTIONS OR CONCERNS. PT STATES "NO I THINJK YOU ARE TAKING VERY GOOD CARE OF ME". VSS REMAINS STABLE ON MONITOR. CALL LIGHT IN REACH. BED ALARM IN PLACE FOR PT SAFETY. WILL CONTINUE TO MONITOR.
--- NOTE | 2020-02-12 14:39 | NUR ---
CORNEL AT POISON CONTROL PHONED BACK FOR UPDATE. UPDATE PROVIDED. NO NEW RECOMMENDATIONS GIVEN.
--- NOTE | 2020-02-12 16:03 | NUR ---
RECORDS REQUEST FAXED TO DR MÉNDEZ PER DR VIEIRA'S REQUEST
--- NOTE | 2020-02-12 16:06 | NUR ---
PT RESTING IN BED AWAKE. RESP ARE EVEN AND UNLABORED. NO DISTRESS NOTED. REMAINS AFIB ON MONITOR. VS REMAIN STABLE. CALL LIGHT IN REACH. BED ALARM IN PLACE FOR PT SAFETY. WILL CONTINUE TO MONITOR
--- NOTE | 2020-02-12 17:57 | NUR ---
PT SITTING UP IN BED EATING DINNER. VSS ON MONITOR STABLE AT THIS TIME. CALL LIGHT IN REACH. WILL CONTINUE TO MONITOR.
--- NOTE | 2020-02-12 20:00 | NUR ---
PATIENT RESTING IN BED IIN SEMI-FOWLERS POSITION. RESP SHALLOW, NON-LABORED AT REST, DEMPSEY. O2 ON AT 4 L NC, O2 SAT 98-100% BREATH SOUNDS COARSE IN UPPER LOBES, DIMINISHED IN BILATERAL LOWER LOBES. RIJTLC IN PLACE WITH NS INFUSING AT 50 ML/HR AND LEVOPHED GTT AT 22 MCG/MIN. #20 SALINE LOCK INTACT IN RFA. ALEXANDER DRAINS BRANDY URINE. FRONT DESK ASSOCIATE SHOWS AF WITH IVCD. DISCUSSED PLAN OF CARE. DENIES NEEDS AT THIS TIME. CALL EVANS IN REACH.
--- NOTE | 2020-02-12 22:00 | NUR ---
NAPPING AT THIS TIME. AFIB ON MONITOR WITH IVCD. RESP NON-LABORED AT REST.
--- NOTE | 2020-02-12 23:30 | NUR ---
C/O BACK PAIN 02/24-MEDICATED WITH MORPHINE 2 MG IVP FOR PAIN ORDERED.
--- NOTE | 2020-02-12 23:50 | NUR ---
STATES PAIN MED HAS HELPED REDUCE LEVEL OF PAIN. VSS. AFIB WITH IVCD ON MONITOR.
[2020-02-13] VITALS (55 sets, daily range): BP systolic 82–195; BP diastolic 39–96
--- NOTE | 2020-02-13 01:53 | NUR ---
RESTING WITH EYES CLOSED. AWAKENS TO EASILY TO NAME FOR 0200 MEDICATION ADMINISTRATION.
--- NOTE | 2020-02-13 03:50 | NUR ---
AWAKE ON ROUNDS, MOANING OUT WITH C/O SEVERE BACK PAIN. RESTLESS AND ANXIOUS. MEDICATED WITH MORPHINE 2 MG IVP ORDERED FOR C/O PAIN. DESAT TO LOW 80'S, PLACED ON NON-REBREATHER.
--- NOTE | 2020-02-13 04:00 | NUR ---
SETTLING DOWN AFTER MORPHINE. O2 SAT 93-97% COMPLETE BED BATH GIVEN AND LINENS CHANGED. PATIENT DOES C/O BACK DISCOMFORT WHEN TURNING SIDE TO SIDE.
[2020-02-13 05:56] LABS: HEMATOCRIT 29.3 % (39.0-50.0); HEMOGLOBIN 8.4 g/dl (14.0-18.0); MEAN CELL VOLUME 95.4 fL CALC (80.0-100.0); MEAN CORPUSCULAR HGB 27.4 pG CALC (26.0-32.0); MEAN CORPUSCULAR HGB CONC 28.7 g/dL CAL (32.0-36.0); RED BLOOD COUNT 3.07 mill/uL (4.70-6.10); RED CELL DISTRI WIDTH 18.8 % (11.5-15.5)
--- NOTE | 2020-02-13 06:00 | NUR ---
REMAINS ON NRB, O2 SAT 97-100% AFIB WITH IBCD ON MONITOR. [facility] VISIBLY SOILED, CHANGED PER PROTOCOL.
[2020-02-13 06:07] LABS: ANION GAP 8 (6-22 (CALC)); BUN 44 mg/dL (8-23); BUN/CREATININE RATIO 87 (12-20 (CALC)); CARBON DIOXIDE 35 mmol/l (22-30); CHLORIDE 92 mmol/l (95-108); CREATININE 0.5 mg/dL (0.7-1.3); GFR > 60 ML/MIN (>=60 (CALC)); GFR FOR AFR.AMER. > 60 ML/MIN (>=60 (CALC)); SODIUM 130 mmol/l (137-146)
--- NOTE | 2020-02-13 07:40 | NUR ---
pt resting in bed with eyes closed; no apparent distress noted; pt arousable to very loud verbal stimulation; appears very lethargic; pt quickly falls back to sleep during assessment; pt denies pain at current; no n/v noted; resp shallow; lungs diminished throughout; skin color wnl; o2 per NRB; desk manager cough noted; hr irreg; weak pedal pulses; no edema noted; afib on monitor; abd soft with bs present; no bm noted per senior grant writer; izaguirre to gravity; #20 intact to rfa TLC flushed and patent to RIJ; ivf infusing as per orders/ levophed gtt at 22mcg/min; titrated to 20mcg/min; plan of care/ meds explained; Dr De Jesus present on unit and informed of this senior grant writer concerns of pt being lethargic; will continue to monitor
--- NOTE | 2020-02-13 07:40 | NUR ---
RT at bedside placing bipap
--- NOTE | 2020-02-13 07:54 | NUR ---
Dr De Jesus present at bedside to assess pt and discuss plan of care
--- NOTE | 2020-02-13 09:04 | NUR ---
RT at bedside to place bipap; pt remains lethargic
--- NOTE | 2020-02-13 09:14 | NUR ---
PT PLACED ON BIPAP FOR RESP FAILURE AT APROX. 0905. B/S ARE DIM AND COARSE BILAT. INITIAL SETTINGS ARE 18/8 WITH FIO2 AT 35%.
--- NOTE | 2020-02-13 09:42 | NUR ---
LAB CALLED RE BLOOD CX. SHOWS GRAM NEGATIVE RODS IN 1 BOTTLE, REPORTED ORGANISM PSEUDOMONAS. CHANGED ABX PER DR LAN ALMONTE.
--- NOTE | 2020-02-13 10:00 | NUR ---
resting with eyes closed; arouses easily when scientific technical writer enters room; pt moaning in pain; attempting to remove bipap; severity of condition explained; bipap reapplied; sbp 80s; levophed gtt titrated; afib on monitor; will continue to monitor
--- NOTE | 2020-02-13 10:17 | NUR ---
Dr De Jesus on unit; informed of bp 86/60; levo titrated; will continue to monitor
--- NOTE | 2020-02-13 10:44 | NUR ---
pt continues to remove bipap mask whiling screaming oxygen please; RT at bedside; converted to 3L NC; staff at bedside to attempt to calm pt; will continue to monitor
--- NOTE | 2020-02-13 11:14 | NUR ---
investigative writer present at bedside; pt has removed o2 via nc; reapplied; afib on monitor; levophef gtt at 30mcg/min; will continue to monitor
--- NOTE | 2020-02-13 12:07 | NUR ---
awake in bed; resp labored; o2 per nc; unable to obtained accurate o2 sat; probe placed on finger, forehead and earlobe; pt admits to pain; medicated as per orders; izaguirre to gravity; afib on monitor; pt refusing reposition due to pain; display card writer inquires about code status/ intubation; pt admits to wanting to be placed on a vent if need be/ states "I've been on a breathing machine before"; levophed gtt cont at 30 mcg/min; will continue to monitor
--- NOTE | 2020-02-13 13:55 | NUR ---
resting with eyes closed; resp less labored; o2 per nc; izaguirre to gravity; iv intact; levophed gtt at 30mcg/min; will continue to monitor
--- NOTE | 2020-02-13 14:59 | NUR ---
poison control Le[place] called this bond underwriter; update and vitals provided
--- NOTE | 2020-02-13 15:35 | NUR ---
RT present at bedside to place bipap; will continue to monitor
--- NOTE | 2020-02-13 15:38 | NUR ---
PT ON BIPAP DUE TO HYPXIA AND RESP FAILURE.
--- NOTE | 2020-02-13 16:10 | NUR ---
resting in bed with eyes closed; resp slightly labored; bipap intact and maintained; afib 90s on monitor; izaguirre to gravity; will continue to monitor
--- NOTE | 2020-02-13 18:36 | NUR ---
resting in bed with eyes closed; no apparent distress noted; resp slightly labored; bipap intact; iv intact and patent; levophed gtt at 20 mcg/min; no redness or edema noted at site; afib on monitor; izaguirre to gravity; call light within reach
--- NOTE | 2020-02-13 19:25 | NUR ---
PATIENT IS DROWSY, RESTS WITH EYES CLOSED. DOES AROUSE WITH PAINFUL STIMULI AND GUARDS HIMSELF WHEN ATTEMPTING TO ASSESS. PT IS ON BIPAPO2 SATS HIGH 95%, PT DOES HAVE COLD FINGERS AND PULSE OX AT TIMES DOES NOT READ. BP WNL. AFEBRILE. AFIB ON TELE, HR RANGES 90'S-100'S. RIJ 3 LUMEN INTACT, FLSUHES AND RETURNS BLOOD PROPERLY. NS AND LEVOPHED DRIP INFUSING PROPERLY. RFA 20 G IV INTCAT AND FLSUHES PROPERLY. ALEXANDER CATH INTCAT AND DRAINS YELLOW/CLOUDY URINE. FILM REPLACEMENT ORDERER COUGH NOTED. NURSING ASSESSMENT PERFORMED. CALL LIGHT WITHIN REACH.
--- NOTE | 2020-02-13 21:15 | NUR ---
PATIENT ABLE TO SWALLOW BEDTIME MEDICATION WITH SIPS OF WATER, COMPLAINS OF DRY THROAT. BLOOD DRAWN FOR VANCO TROUGH DUE. PATIENT YELLS OUT LOUD FROM PAIN, WHEN ASKED WHAT IS HIS PAIN LEVEL, HE YELLS "ONE THOUSAND." NOTIFIED HIM I WILL BE PROVIDING PAIN MEDIACTION, PATIENT AGREES. PT DOES START PULLING ON HIS BIPAP MASK, EXPLAINED TO HIM WHY HE NEEDS TO LEAVE IT ON.
--- NOTE | 2020-02-13 21:24 | NUR ---
PRN PAIN MEDICATION PROVIDED. WHILE WALKING IN PT HAD PULLED OFF HIS MASK AND BIPAP TUBING, PT BECAME ANXIOUS AND STARTED HITTING THE TABLE AND YELLING ALOUD, "I NEED OXYGEN." PT WAS EXPLAINED TO NOT PULL ON MASK BECAUSE IT COULD COME OFF, PT WAS ABLE TO CALM DOWN AND LEAVE MASK ON.
[2020-02-14] VITALS (70 sets, daily range): BP systolic 87–171; BP diastolic 52–100
--- NOTE | 2020-02-14 00:06 | NUR ---
PATIENT RESTS WITH EYES CLOSED. NO ACUTE DISTRESS SHOWN. BIPAP IN PLACE. CALL LIGHT WITHIN REACH.
--- NOTE | 2020-02-14 00:22 | NUR ---
PT AWAKENING. IS RESTLESS. MOVES ARMS AROUND. ATIVAN PRN GIVEN.
--- NOTE | 2020-02-14 02:25 | NUR ---
PT RESTS WITH EYES CLSOED. ON BIPAP. NO ACUTE DISTRESS SHOWN. NEW IV BAG OF NS AND ANTIBITOICS INFUSING NOW.
--- NOTE | 2020-02-14 03:20 | NUR ---
NEW BAG OF LEVOPHED INFUSING NOW, TITRATING LEVOPHED DRIP NOW, VS SET TO EVERY 5 MINUTES. WILL CONTINUE TO MONITOR.
--- NOTE | 2020-02-14 05:25 | NUR ---
AM LABS DRAWN FROM RIJ, FLUSHES AND RETURNS BLOOD PROPERLY. PT RESTS WITH EYES CLOSED. BIPAP IN PLACE. TITRATING LEVOPHED DRIP WELL, BP WNL.
[2020-02-14 05:51] LABS: HEMATOCRIT 26.2 % (39.0-50.0); HEMOGLOBIN 7.6 g/dl (14.0-18.0); MEAN CELL VOLUME 92.6 fL CALC (80.0-100.0); MEAN CORPUSCULAR HGB 26.9 pG CALC (26.0-32.0); NEUT# 5.82 thou/uL (1.82-7.42); RED BLOOD COUNT 2.83 mill/uL (4.70-6.10); RED CELL DISTRI WIDTH 18.6 % (11.5-15.5)
[2020-02-14 06:11] LABS: ALBUMIN 2.3 g/dL (3.2-5.0); ALKALINE PHOSPHATASE 85 u/l (38-126); ANION GAP 6 (6-22 (CALC)); BILIRUBIN, TOTAL 0.6 mg/dL (0.0-1.4); BUN 40 mg/dL (8-23); BUN/CREATININE RATIO 73 (12-20 (CALC)); CARBON DIOXIDE 32 mmol/l (22-30); CHLORIDE 94 mmol/l (95-108); CREATININE 0.5 mg/dL (0.7-1.3); GFR > 60 ML/MIN (>=60 (CALC)); GFR FOR AFR.AMER. > 60 ML/MIN (>=60 (CALC)); POTASSIUM 5.1 mmol/l (3.5-5.1); SODIUM 128 mmol/l (137-146); TOTAL PROTEIN 4.2 g/dL (6.3-8.2)
--- NOTE | 2020-02-14 06:16 | NUR ---
PHOTOSTAT OPERATOR HELPER IN ROOM FOR CXR, PT ABLE TO TOLERATE.
[2020-02-14 06:17] LABS: SGOT/AST 46 u/l (19-48)
[2020-02-14 06:31] LABS: IMMATURE GRANULOCYTES 13.6 % (0.0-5.0)
--- NOTE | 2020-02-14 07:40 | NUR ---
pt resting in bed with eyes closed; no apparent distress noted; pt arousable to tactile stimulation; lethargic; no s/sx of pain noted; no n/v noted; resp even and unlabored/ shallow; lungs diminished; skin color wnl; bipap intact with settings of 16/8 35% FiO2; rotary drier feeder cough noted; hr irreg; weak pedal pulses; no edema noted; afib on monitor; abd soft/ distended with bs present; no bm noted per poem writer; izaguirre to gravity draining cloudy yellow urine; #20 intact to rfa; TLC patent to RIJ with ivf/ levopedh gtt at 4mcg/min; no redness or edema noted at site; plan of care/ am meds explained; call light within reach; will continue to monitor
--- NOTE | 2020-02-14 08:07 | NUR ---
pt resting in bed with eyes closed; afib on monitor; iv intact; levophed gtt titrated 4mcg/min; izaguirre to gravity; bipap maintained; call light within reach; will continue to monitor
--- NOTE | 2020-02-14 08:32 | NUR ---
Dr De Jesus present at bedside to assess pt and discuss plan of care
--- NOTE | 2020-02-14 09:05 | NUR ---
RT at bedside; pulse ox probe changed out several times; unable to obtained accurate o2 sat reading; loose harsh prod cough noted; will continue to monitor
--- NOTE | 2020-02-14 09:08 | NUR ---
PT TAKEN OFF BIPAP AND PLACED ON 3 L/MIN NC.
--- NOTE | 2020-02-14 09:45 | NUR ---
pt awake in bed; anxious/agitated; resp labored; o2 per nc; medicated with ativan as orders; will continue to monitor closely
--- NOTE | 2020-02-14 09:53 | NUR ---
S: NICOLÁS MORGAN is a 74 M who presents with sepsis. He has a history of COPD,hypertension, Afib, lung cancer, and leukemia. All medications in patient's chart were reviewed. O: VS: BP 117/60 mmHg, P 120 bpm, RR 23 breaths/min, T 99.3 F W 73.6 kg, HT 177.8 cm, Scr= 1, CrCl= 61.9 ml/min A: Blood culture is pending. P: Patient is on azithromycin 500 mg IV daily and cefepime 2g IV Q8H. Vancomycin ordered for pharmacy to dose. Vancomycin trough level is 8 mcg/mL on 02/13. Change to Vancomycin 1g IV Q12H. Vancomycin trough is drawn before the 4th dose on 02/14 at 2030. Vancomycin goal trough is between 10-15 mcg/ml. Pharmacy will follow and or advise on antibiotics use as needed.
--- NOTE | 2020-02-14 10:10 | NUR ---
staff at bedside attempting to bath pt; pt declining to reposition; afib on monitor; izaguirre to gravity; iv intact; levophed gtt cont at 4mcg/min; o2 per nc; call light within reach; will continue to monitor
--- NOTE | 2020-02-14 11:15 | NUR ---
Dr De Jesus called per senior copywriter; informed of findings; pt resp labored/ shallow; o2 per nc; o2 sat 91%; lungs with rhonchi/wet sounding; loose staff development educator cough; skin color sallow appearing; afib on monitor; general appearance is poor; orders received and on chart; will continue to monitor
--- NOTE | 2020-02-14 11:23 | NUR ---
MESSAGE LEFT FOR NEXT OF [facility] BROTHER TO CALL ICU.
--- NOTE | 2020-02-14 12:00 | NUR ---
resting in bed with eyes closed; resp shallow and labored; skin color pale appearing; o2 per nc; o2 sat 92%; izaguirre to gravity; afib on monitor; will continue to monitor closely
--- NOTE | 2020-02-14 14:00 | NUR ---
resting in bed with eyes closed; iv intact and patent; levophed infusing; izaguirre to gravity; afib on monitor; will continue to monitor
--- NOTE | 2020-02-14 15:12 | NUR ---
received call from poison control [place]; information/update provided
--- NOTE | 2020-02-14 15:20 | NUR ---
levophed gtt titrated to 14mcg/min
--- NOTE | 2020-02-14 16:08 | NUR ---
resting in bed with eyes closed; resp shallow; o2 per nc; iv intact and patent; levophed gtt at 10mcg/min; afib on monitor; izaguirre to gravity; refused repositioning; call light within reach; will continue to monitor
--- NOTE | 2020-02-14 17:00 | NUR ---
BROTHER PAM MORGAN PHONED UNIT FOR UPDATE. UPDATE PROVIDED. ENCOURAGED HIM TO COME AND VISIT PATIENT. HE STATE HE WILL COME AND VISIT TOMORROW.
--- NOTE | 2020-02-14 18:05 | NUR ---
resting in bed with eyes closed; resp labored; o2 per nc; iv intact and patent; afib on monitor; izaguirre to gravity; afib on monitor; pt has refused repositioning throughout the day;
--- NOTE | 2020-02-14 18:11 | NUR ---
brother present at bedside; update provided
--- NOTE | 2020-02-14 18:18 | NUR ---
call received from Ирина Bonner daughter; states she was informed is not expected to make it through the night; daughter informed pt is in critical condition but stable at this time; update proivded;
--- NOTE | 2020-02-14 19:00 | NUR ---
PATIENT MUMBLES WITH PAINFUL STIMULI, DOES NOT OPEN EYES, WHEN ASKED IF HE IS IN PAIN, HE STATES, "YES." PT'S HEART RATE ELEVATES IN THE 110'S WITH PAINFUL STIMULI. AFEBRILE. AFIB ON TELE, HR LOW 100'S. BP WNL. RIJ TRIPLE LUMEN INTACT, FLUSHES AND RETURNS BLOOD PROPERLY. LEVOPHED DRIP AT 2 MCG/MIN, NS AT 50 ML/HR. NURSING ASSESSMENT PERFORMED. PT IS ON NC AT 4 L/MIN, O2 SAT IS ANYWHERE FROM 88%-100%. PT DOES HAVE LABORED BREATHING, RESPIRATIONS ARE 24/MINUTE. COARSE LS THROUGHOUT. ALEXANDER CATHETER INTACT, DRAINS YELLOW/CLOUDY URINE. WILL CONTINUE TO MONITOR.
--- NOTE | 2020-02-14 19:58 | NUR ---
RT IN ROOM TO WEAN O2 TO 2 L/MIN FROM 3 L/MIN, WILLC ONTINUE TO MONITOR.
--- NOTE | 2020-02-14 21:10 | NUR ---
PATIENT ABLE TO SWALLOW HIS BEDTIME LOPRESSOR, PT PLACED IN HIGH ARCHER'S AND NEEDED REPETITIVE VERBAL CUEING. REST OF BEDTIME MEDS GIVEN. PAIN MEDIACTION GIVEN WELL. CALL LIGHT WITHIN REACH.
--- NOTE | 2020-02-14 23:27 | NUR ---
PT RESTS WITH EYES CLOSED, MOUTH BREATHS, O2 SATS ARE IN LOW 90'2. IV ANTIBIOTIC FINISHED, RIJ FLUSHED, WORKS PROPERLY.
[2020-02-15] VITALS (16 sets, daily range): BP systolic 111–164; BP diastolic 62–86
--- NOTE | 2020-02-15 00:25 | NUR ---
PATIENT RESTS WITH EYES CLOSED, HOB 30 DEGREES. PT SATS 92% ON O2 NC 2 L/MIN, PT DEMPSEY HAVE SHALLOW BREATHING AND IS A MOUTH BREATHER, RESPIRATIONS 24-26/MIN. WILL CONTINUE TO MONITOR.
--- NOTE | 2020-02-15 02:23 | NUR ---
PATIENT PULLS OF HIS GOWN AND LEADS OFF. BECOMING RESTLESS, WILL CONTIUE TO MONITOR.
--- NOTE | 2020-02-15 03:03 | NUR ---
PT RESTLESS, PULLS ON BED RAILS. WHEN ASKED IF HE NEEDS ANYTHING, PT OPENS HIS EYES AND STATES, "NO MA'AM." ATIVAN IV GIVEN. WILL CONTINUE TO MONITOR.
--- NOTE | 2020-02-15 04:35 | NUR ---
PT PULLS OF HIS TELEMETRY LEADS. PT REORIENTED. RESPIRATIONS 24/MIN. ON 2 L/MIN NC, SATS 93% AND GREATER. CALL LIGHT WITHIN REACH.
--- NOTE | 2020-02-15 05:29 | NUR ---
LABS DRAWN FROM [facility] TRIPLE LUMEN FUNCTIONING PROPERLY.
[2020-02-15 06:03] LABS: ANION GAP 5 (6-22 (CALC)); BUN 41 mg/dL (8-23); BUN/CREATININE RATIO 91 (12-20 (CALC)); CARBON DIOXIDE 32 mmol/l (22-30); CHLORIDE 98 mmol/l (95-108); CREATININE 0.4 mg/dL (0.7-1.3); GFR > 60 ML/MIN (>=60 (CALC)); GFR FOR AFR.AMER. > 60 ML/MIN (>=60 (CALC)); HEMATOCRIT 25.3 % (39.0-50.0); HEMOGLOBIN 7.5 g/dl (14.0-18.0); MEAN CORPUSCULAR HGB 27.3 pG CALC (26.0-32.0); MEAN CORPUSCULAR HGB CONC 29.6 g/dL CAL (32.0-36.0); POTASSIUM 4.5 mmol/l (3.5-5.1); RED BLOOD COUNT 2.75 mill/uL (4.70-6.10); RED CELL DISTRI WIDTH 18.9 % (11.5-15.5); SODIUM 130 mmol/l (137-146)
--- NOTE | 2020-02-15 08:00 | NUR ---
PT SEEN IN BED, RESPONDS TO TOUCH STIMULUS, INTERACTS ONLY WITH SHORT ONE WORD ANSWERS. LUNGS COARSE WITH WHEEZING NOTED, 2 LPM AT THIS TIME. LEVOPHED HAS BEEN TITRATED OFF, BP IN THE 120-130 RANGE SYSTOLIC. PT NOT RESPONSIVE ENOUGH TO EAT HIS BREAKFAST. RIJ TLC WORKING WELL. ALEXANDER IN PLACE.
--- NOTE | 2020-02-15 12:00 | NUR ---
PT HAS BEEN PLACED ON BiPAP FOR RELIEF OF EFFORT IN BREATHING, SATS CONTINUE IN 90s. PT DOES REMOVE BiPAP OFTEN, INSTRUCTED TO ALLOW IT TO REMAIN ON. FAMILY MEMBERS HAVE CALLED FOR UPDATES AND ONE VISITED AT BEDSIDE TODAY.
--- NOTE | 2020-02-15 15:59 | NUR ---
POISON CONTROL HAS CALLED AND SIGNED OFF THE CASE, NO FURTHER MONITORING NECESSARY REGARDING CARDENE THAT WAS PUSHED.
--- NOTE | 2020-02-15 16:14 | NUR ---
PT REMAINS AT REST IN THE BED WITHOUT CHANGE IN STATUS. PT STILL REMOVES BiPAP OCCASIONALLY, REPLACED WHEN HE DOES. FAMILY CALLS FOR UPDATE.
--- NOTE | 2020-02-15 18:14 | NUR ---
PT SEEN AWAKE, INTERACTIVE AT THIS TIME. SUPPER ARRIVED AND PT ATE CUP OF PUDDING AND DRANK AN ENSURE. FAMILY WAS UPDATED ON STATUS, PLEASED. PAIN MED GIVEN FOR LOW BACK PAIN.
--- NOTE | 2020-02-15 20:00 | NUR ---
RESTING IN BED WITH EYES CLOSED. AROUSES TO NAME. ANSWERS QUESTIONS APPROPRIATELY. RESP SHALLOW, SLT LABORED. BREATH SOUNDS COARSE THROUGHOUT LUNG FERRELL. MOIST NON-PRODUCTIVE COUGH. O2 ON AT 3 L NC. O2 SAT 98% RIJTLC INTACT WITH NS INFUSING AT 50 ML/HR. LIGHT RAIL TRANSIT OPERATOR SHOWS AFIB WITH IVCD. EXPLAINED PLAN OF CARE AND MEDICATION SCHEDULE FOR TONIGHT. CALL EVANS IN REACH.
--- NOTE | 2020-02-15 22:00 | NUR ---
PATIENT LEHTARGIC BUT AROUSABLE TO NAME, DRIFTS OFF WITHOUT STIMULATION. AFIB ON MONITOR.
--- NOTE | 2020-02-15 23:45 | NUR ---
COMPLETE BED BATH GIVEN AND LINENS CHANGED. PRESSURE AREA NOTED TO COCCYX AND BUTTOCKS WITH REDDISH-PURPISH DISCOLORATION NOTED. DISCUSSED WITH PATIENT IMPORTANCE OF TURNING AND REPOSITIONING. ASSISTED PATIENT TO TURNONTO LEFT SIDE AND PROPPED WITH PILLOWS.
[2020-02-16] VITALS (13 sets, daily range): BP systolic 114–182; BP diastolic 57–96
--- NOTE | 2020-02-16 02:00 | NUR ---
AWAKENS EASILY TO NAME. ASSISTED PATIENT TO TURN AND REPOSITION ONTO RIGHT SIDE. VSS. AFIB WITH IVCD ON MONITOR.
--- NOTE | 2020-02-16 04:00 | NUR ---
NO CHANGES TO REPORT. VSS. AFIB WITH IVCD ON MONITOR. NS INFUSING WITHOUT INCIDENT TO RIJTLC.
--- NOTE | 2020-02-16 06:00 | NUR ---
TURNED AND REPOSITIONED ONTO LEFT SIDE. NO CHANGES TO REPORT. VSS. MAINTAINED O2 SATS >94% ON O2 2 L NC.
--- NOTE | 2020-02-16 07:20 | NUR ---
pt resting in bed with eyes closed; no apparent distress noted; easily aroused; pt offers no complaints; assessment completed at this time; pt admits to feeling better; states pain is "alright" at this time; deny need for pain meds; no n/v noted; resp even and unlabored; exertional sob noted; lungs coarse/ diminished bases; skin color pale; o2 per nc; moist loose cough noted; hr irreg; wk pedal pulses; no edema noted; afib on monitor; abd soft/ distended with bs present; no bm noted per radio script writer; izaguirre to gravity; TLC to RIJ patent with ivf infusing without complication; no redness or edema noted at site; purple/red area noted to bilat buttocks; repositioning encouraged; call light within reach; will continue to monitor
--- NOTE | 2020-02-16 08:00 | NUR ---
awake in bed; repositioned for breakfast; pt with complaints of back pain when repositioned; will medicate as per request; izaguirre to gravity; afib on monitor; call light within reach; will continue to monitor
--- NOTE | 2020-02-16 08:01 | NUR ---
PT IS RECEIVING VANCOMYCIN FOR SEPSIS AND HAS HISTORY OF BACTEREMIA. PT HAD BEEN RECEIVING 1G IV Q12H WITH GOAL TROUGH 15-20 MCG/ML. TROUGH = 20 LAST NIGHT. DECREASED DOSE DOWN TO 750MG IV Q12H AND WILL RE-CHECK TROUGH TOMORROW AT 2030. PHARMACY WILL CONTINUE TO FOLLOW.
--- NOTE | 2020-02-16 08:35 | NUR ---
Dr De Jesus present at bedside to assess pt and discuss plan of care
--- NOTE | 2020-02-16 09:50 | NUR ---
daughter present at bedside
--- NOTE | 2020-02-16 10:00 | NUR ---
pt awake in bed; conversing with daughter; visitation policy explained; izaguirre to gravity; iv intact and patent; afib on monitor; pt deny needs; repositioned to right side; po fluids encouraged; will continue to monitor
--- NOTE | 2020-02-16 10:30 | NUR ---
CALLED [facility] REGARDING AN AIR MATTRESS. SPOKE TO SAMUEL WAS GIVEN CONFIRMATION NUMBER [id number]. WAS ALSO TOLD THEY WILL CALL WITH AN ETA FOR THE AIR MATTRESS.
--- NOTE | 2020-02-16 12:00 | NUR ---
awake in bed; resp slightly labored; o2 per nc; afib on monitor; iv intact and patent; izaguirre to gravity; pt on right side at this time; declined meal/ left at bedside; call light within reach; will continue to monitor
--- NOTE | 2020-02-16 14:01 | NUR ---
awake in bed; repositioned to right side; pt with back and generalized pain; medicated as per orders with Lortab; pt asked "was I in a accident or something"; hospitalization explained; afib on monitor; iv intact and patent; izaguirre to gravity; o2 per nc; call light within reach; will continue to monitor
--- NOTE | 2020-02-16 16:00 | NUR ---
pt resting in bed with eyes closed; no apparent distress noted; o2 per nc; iv intact and patent; izaguirre to gravity; afib on monitor; call light within reach; will continue to monitor
--- NOTE | 2020-02-16 17:59 | NUR ---
awake in bed; repositioned for dinner; meal prepped; no complaints; iv intact and patent; no redness or edema noted at site; izaguirre to gravity; o2 per nc at 2L; afib on monitor; call light within reach
--- NOTE | 2020-02-16 18:05 | NUR ---
hill rom on unit for air mattress delivery
--- NOTE | 2020-02-16 20:30 | NUR ---
PATIENT AWAKE, ALERT AND ORIENTED TO PERSON AND PLACE. RESP SLT LABORED. O2 ON AT 2 L NC. BREATH SOUNDS COARSE IN UPPER LOBES AND DIMINISHED IN BILATERAL BASES. MOIST, NON-PRODUCTIVE COUGH. RIJTLC IN PLACE, DSG CDI, NS INFUSING AT 10 ML/HR. ALEXANDER DRAINING CLEAR BRANDY URINE. CORPORATE ATTORNEY SHOWS AFIB WITH IVCD. DISCUSSED PLAN OF CARE. PARTIAL LINEN CHANGED AND ASSISTED PATIENT WITH REPOSITIONING ONTO SIDE. REINFORCED IMPORTANCE OF TURNING SIDE TO SIDE. CALL EVANS IN REACH.
--- NOTE | 2020-02-16 22:00 | NUR ---
PATIENT RESTING WITH EYES CLOSED. AWAKENS TO NAME. ASSISTS WITH TURNING AND REPOSITIONING. VSS.
[2020-02-17] VITALS (14 sets, daily range): BP systolic 123–186; BP diastolic 60–97
--- NOTE | 2020-02-17 | NUR ---
RESTING WITH EYES CLOSED AWAKENSTO NAME. TURND AND REPOSITIONED ONTO SIDE. AFIB ON MONITOR, VSS.
--- NOTE | 2020-02-17 02:00 | NUR ---
NO CHANGES TO REPORT. COOPERATIVE WITH Q2H TURNING AND REPOSITIONING FOR THE MOST PART. VSS. AFIB WITH IVCD ON MONITOR.
--- NOTE | 2020-02-17 03:25 | NUR ---
C/O BACK PAIN, MEDICATED WITH LORTAB PO FOR PAIN ORDERED.
--- NOTE | 2020-02-17 03:50 | NUR ---
COMPLETE BED BATH GIVEN. REPOSITIONED IN BED WITH ASSISTANCE. BLOOD DRAWN FOR AM LABS FROM TLC. TLC FLUSHED PRE AND POST BLOOD DRAW PER PROTOCOL.
[2020-02-17 03:54] LABS: HEMATOCRIT 26.6 % (39.0-50.0); HEMOGLOBIN 7.7 g/dl (14.0-18.0); MEAN CORPUSCULAR HGB 26.9 pG CALC (26.0-32.0); MEAN CORPUSCULAR HGB CONC 28.9 g/dL CAL (32.0-36.0); RED BLOOD COUNT 2.86 mill/uL (4.70-6.10); RED CELL DISTRI WIDTH 18.7 % (11.5-15.5)
[2020-02-17 04:17] LABS: ANION GAP 4 (6-22 (CALC)); BUN 48 mg/dL (8-23); BUN/CREATININE RATIO 119 (12-20 (CALC)); CARBON DIOXIDE 33 mmol/l (22-30); CHLORIDE 103 mmol/l (95-108); CREATININE 0.4 mg/dL (0.7-1.3); GFR > 60 ML/MIN (>=60 (CALC)); GFR FOR AFR.AMER. > 60 ML/MIN (>=60 (CALC)); SODIUM 135 mmol/l (137-146)
[2020-02-17 04:20] LABS: POTASSIUM 5.2 mmol/l (3.5-5.1)
--- NOTE | 2020-02-17 06:00 | NUR ---
PATIENT SPILLED A CUP OF CHOCOLATE ENSURE ON HIMSELF AND IN THE BED. PARTIAL BATH GIVEN. TRANSFERRED TO BED WITH AIR MATTRESS BY 3 PERSON TRANSFER WITH USE OF SLIDE BOARD.
--- NOTE | 2020-02-17 07:20 | NUR ---
pt awake in bed; no apparent distress noted; assessment completed at this time; pt alert and oriented; admits to generalized pain; no n/v noted; will medicate; resp even and unlabored; exertional sob noted; lungs coarse/ diminished; skin color pale; o2 per nc at 2L; INTEL RECRUITER moist loose cough noted; hr irreg; wk pedal pulses; no pedal edema noted; afib on monitor; abd soft/ distended with bs hypoactive; no bm noted per sheet writer; izaguirre to gravity draining well; edema noted to penis and scrotum; TLC intact to RIJ with ivf infusing without complication; no redness or edema noted at sit;e duoderm intact to coccyx for deep tissue injury; pt encouraged to reposition from sie to side; assisted to right side at this time; air mattress in place; call light within reach/ will cont to monitor
--- NOTE | 2020-02-17 08:05 | NUR ---
repositined; awake in bed eating breakfast; no apparent distress noted; pt offers no complaints; iv intact and patent; izaguirre to gravity; o2 per nc; afib on monitor; air mattress; will continue to monitor
--- NOTE | 2020-02-17 08:35 | NUR ---
Dr De Jesus present at bedside to assess pt and discuss plan of care
--- NOTE | 2020-02-17 10:05 | NUR ---
awake in bed; repositioned to supine; o2 per nc; izaguirre to gravity; iv intact and patent; afib on monitor; call light within reach; will continue to monitor
--- NOTE | 2020-02-17 10:59 | NUR ---
layne Gifford present at bedside
--- NOTE | 2020-02-17 11:40 | NUR ---
daughter departed; meal prepped for pt; po fluids provided; will continue to monitor
--- NOTE | 2020-02-17 12:10 | NUR ---
awake in bed eating lunch; no apparent distress noted; pt offers no complaints; iv intact and patent; afib on monitor; izaguirre to gravity; o2 per nc; call light within reach; will continue to monitor
--- NOTE | 2020-02-17 12:26 | NUR ---
daughter Ирина called this medical underwriter; daughter reports pt hallucinating; no hallucinations noted per this medical underwriter while caring for pt today; will continue to monitor pt and notify MD is any changes/ hallucinations occur; daughter states "I've dealt with enough to know it's near"; daughter reassured staff will notify her with any changes/decline in condition; will continue to monitor
--- NOTE | 2020-02-17 14:15 | NUR ---
resting in bed on left side with eyes closed; no apparent distress noted; afib on monitor; izaguirre to gravity; o2 per nc; call light within reach; will continue to monitor
--- NOTE | 2020-02-17 16:03 | NUR ---
awake in bed; offers no complaints; pt repositioned for to supine; afib on monitor; iv intact and patent; izaguirre to gravity; o2 per nc; will continue to monitor
--- NOTE | 2020-02-17 18:15 | NUR ---
awake in bed; no apparent distress noted; resp even and unlabored; iv intact and patent; no redness or edema noted at site; afib on monitor; izaguirre to gravity; call light within reach;
--- NOTE | 2020-02-17 20:15 | NUR ---
RESTING IN BED. RESP NON-LABORED AT REST. O2 ON AT 2 L NC. O2 SAT 99% BREATH SOUNDS COARSE ABD DIMINISHED THROUGHOUT LUNG FERRELL. ABD DISTEDNED AND SLT FIRM WITH HYPOACTIVE BOWEL SOUNDS. ALEXANDER DRAINS CLEAR BRANDY URINE. DIURESING WELL FROM LASIX GIVEN EARLIER TODAY. PENILE AND SCROTAL EDEMA IS IMPROVING. RIJTLC IN PLACE, DSG CDI, NS INFUSING AT 10 ML/HR, UNABLE TO OBTIAN BLOOD RETURN FROM UNUSED PORTS AND SLUGGISH TO FLUSH. BLOOD DRAWN FOR VANCO TROUGH AND SENT TO LAB. CARDIAC MONTIOR SHOWS AFIB WITH IVCD. PATIENT SPILLED CUP OF ICED TEA IN THE BED. PARTIAL LINEN CHANGE DONE. PATIENT IS ON AN AIR MATTRESS, DUDERM INTACT TO COCCYX. DISCUSSEDPLAN OF CARE. DENIES NEEDS AT THIS TIME. CALL EVANS IN REACH.
--- NOTE | 2020-02-17 22:00 | NUR ---
WATCHING TV. NO COMPLAINTS VOICED. TAKE PO FLUIDS WELL. VSS.
--- NOTE | 2020-02-17 23:50 | NUR ---
RESTING CALMLY AND QUIETLY IN BED. WATCHING TV. VSS. TURNED AND REPOSITIONED.
[2020-02-18] VITALS (10 sets, daily range): BP systolic 110–172; BP diastolic 52–91
--- NOTE | 2020-02-18 02:00 | NUR ---
NO CHANGES TO REPORT. IN NO APPARENT DISTRESS. RESP EVEN AND UNLABORED AT REST VSS. AFIB WITH IVCD ON MONITOR.
--- NOTE | 2020-02-18 03:50 | NUR ---
BLOOD DRAWN FROM BLUE PORT OF [facility] FOR AM LABS, PORT FLUSHED PRE AND POST BLOOD DRAW PER PROTOCOL. WHITE AND BROWN PORT OF TLC FLUSH SLUGGISHLY AND UNABLE TO OBTAIN BLOOD RETURN. VSS.
[2020-02-18 05:22] LABS: HEMATOCRIT 23.9 % (39.0-50.0); MEAN CELL VOLUME 94.5 fL CALC (80.0-100.0); MEAN CORPUSCULAR HGB 27.7 pG CALC (26.0-32.0); MEAN CORPUSCULAR HGB CONC 29.3 g/dL CAL (32.0-36.0); RED BLOOD COUNT 2.53 mill/uL (4.70-6.10); RED CELL DISTRI WIDTH 18.8 % (11.5-15.5)
[2020-02-18 05:23] LABS: ANION GAP 3 (6-22 (CALC)); BUN 41 mg/dL (8-23); BUN/CREATININE RATIO 83 (12-20 (CALC)); CARBON DIOXIDE 37 mmol/l (22-30); CHLORIDE 100 mmol/l (95-108); CREATININE 0.5 mg/dL (0.7-1.3); GFR > 60 ML/MIN (>=60 (CALC)); GFR FOR AFR.AMER. > 60 ML/MIN (>=60 (CALC)); POTASSIUM 4.5 mmol/l (3.5-5.1); SODIUM 135 mmol/l (137-146)
--- NOTE | 2020-02-18 06:00 | NUR ---
COMPLETE BED BATH AND LINENS CHANGED. PATIENT ABLE TO TURN AND REPOSITION WITH ASSIST OF 1. COOPERATIVE AND PLEASANT. VSS. DEMPSEY, O2 SAT 94% ON O2 2 L NC. MEDICATED WITH LORTAB ORDERED FOR C/O BACK PAIN. PATIENT HAD 1400 ML OUT OF SLT CLOUDY BRANDY URINE THIS SHIFT. DUODERM INTACT TO COCCYX-DTI.
--- NOTE | 2020-02-18 09:39 | NUR ---
VANCOMYCIN ORDERED FOR PHARMACY TO DOSE. PT IS SEPTIC AND RECENT BLOOD CULTURES POSITIVE FOR STAPH HAEMOLYTICUS IN 4/ BOTTLES. PT WAS RECEIVING VANCOMYCIN 750MG IV Q12H. TROUGH = 12. GOAL TROUGH = 15-20. WHEN PT WAS RECEIVING 1G Q12H, TROUGH WAS 20. CHANGE TO VANCOMYCIN 500MG IV Q8H. DRAW TROUGH 02/18 @ 0830. GOAL = 15-20. PHARMACY WILL CONTINUE TO FOLLOW.
--- NOTE | 2020-02-18 10:35 | NUR ---
The patient was up to [facility], had a moderate bm. He is confused, thinks hes going home tomorrow. He did not use the call light, he was reintroduced to the light. He is SOB and his saturation decreases with any movement. He will not go to MRI today.
--- NOTE | 2020-02-18 13:20 | NUR ---
The patient is looking for his phone. There was no phone found in the bed or sheets.
--- NOTE | 2020-02-18 17:14 | NUR ---
duoderm pspplied to coccyx this morming with bath.
--- NOTE | 2020-02-18 20:33 | NUR ---
PATIENT ABLE TO SWALLOW BEDTIME MEDS, WITH NO DIFFICULTY. NO ACUTE DISTRESS SHOWN, AAKE AND WATCHES TV. FOLLOWS COMMANDS, HOB IN HIGH ARCHER'S. CALL LIGHT WITHIN REACH.
--- NOTE | 2020-02-18 22:37 | NUR ---
CORE EXTRUDER REPOSITIONED PT. PT IS AWAKE. NO COMPLAINTS. NO ACUTE DISTRESS SHOWN. CONVERSATES BACK. HEELS REMAIN ELEVATED. AIR MATRESS INTACT.
[2020-02-19] VITALS (11 sets, daily range): BP systolic 112–169; BP diastolic 68–84
--- NOTE | 2020-02-19 00:52 | NUR ---
PT WAS TURNED TO HIS LEFT SIDE, PT ABLE TO PARTICIPATE TO TUSN ON HIS SIDE, FEET WERE REPSOITIONED AND PILLOWS REPLACED. NO ACUTE DISTRESS SHOWN. CALL LIGHT WITHIN REACH.
--- NOTE | 2020-02-19 01:22 | NUR ---
IV ANTIBIOTIC INFUSING NOW. RIJ FLUSHES PROPERLY. PATIENT IS AWAKE AND WATCHES TV. NO ACUTE DISTRES SHOWN. CALL LIGHT WITHIN REACH.
--- NOTE | 2020-02-19 02:33 | NUR ---
PATIENT AWAKENS EASILY WHEN SPOKEN TO. NO ACUTE DISTRESS SHOWN. REPSOTIONED, HEELS REMAIN ELEVATED.
--- NOTE | 2020-02-19 05:50 | NUR ---
PATIENT ABLE TO PULL HIMSELF UP AND ASSITED WITH REPOSTION, PICTURES TAKEN OF HEELS AND BUTTOCKS. PT DOES BECOME SOB WITH EXERTION. LAYS ARCHER'S POSITION NOW. CALL LIGHT WITHIN REACH.
[2020-02-19 06:15] LABS: CHLORIDE 97 mmol/l (95-108); CREATININE 0.5 mg/dL (0.7-1.3); GFR > 60 ML/MIN (>=60 (CALC)); GFR FOR AFR.AMER. > 60 ML/MIN (>=60 (CALC)); POTASSIUM 4.3 mmol/l (3.5-5.1); SODIUM 137 mmol/l (137-146)
[2020-02-19 06:23] LABS: ANION GAP 3 (6-22 (CALC))
[2020-02-19 06:26] LABS: BUN 34 mg/dL (8-23); BUN/CREATININE RATIO 68 (12-20 (CALC))
--- NOTE | 2020-02-19 06:45 | NUR ---
RECIEVED REPORT FROM SO MO. ASSUMED PT CARE.
[2020-02-19 06:46] LABS: CARBON DIOXIDE 41 mmol/l (22-30)
[2020-02-19 06:55] LABS: HEMATOCRIT 24.9 % (39.0-50.0); MEAN CELL VOLUME 94.7 fL CALC (80.0-100.0); MEAN CORPUSCULAR HGB 26.6 pG CALC (26.0-32.0); MEAN CORPUSCULAR HGB CONC 28.1 g/dL CAL (32.0-36.0); NEUT# 3.69 thou/uL (1.82-7.42); RED BLOOD COUNT 2.63 mill/uL (4.70-6.10); RED CELL DISTRI WIDTH 18.5 % (11.5-15.5)
[2020-02-19 06:58] LABS: IMMATURE GRANULOCYTES 10.1 % (0.0-5.0)
--- NOTE | 2020-02-19 07:30 | NUR ---
PT ALERT, ABLE TO MAKE NEEDS KNOW. AFIB ON TELEMETRY, HR 120. PT DENIES CP OR DISTRESS. PT SOB WITH MINIMAL EXERTION, RESPIRATION SHALLOW, SA02@90% ON 2LPM/NC. PT ASSISTED TO BSC, LG BM DARK BROWN WITH BLK STREAKS, DR. GREGG AWARE. ALEXANDER PATENT, DRAINING TO BSD VIA GRAVITY. RSUB INFUSING NS@10ML/HR. NO S/S OF INFILTRAION NOTED AT SITE. PT ASSISTED BACK TO BED, HEEL WITH SP, OFF-LOADED WITH HEEL PROTECTORS IN PLACE. CALL LIGHT IN REACH. WILL MONITOR.
--- NOTE | 2020-02-19 07:45 | NUR ---
DIETARY ON UNIT, BREAKFAST TRAY SET UP.
--- NOTE | 2020-02-19 08:19 | NUR ---
GUIDO CARBALLO DRAWN AT BEDSIDE, PT TOLERATED WELL.
--- NOTE | 2020-02-19 09:56 | NUR ---
PT FAMILY ARRIVED AT BEDSIDE FOR VISIT.
--- NOTE | 2020-02-19 10:40 | NUR ---
PT DAUGHTER HANSEL IS TAKING PT WALLET WITH $120 HOME PER PT REQUEST. DOCUMENTED ON INVENTORY LIST AND SIGNED BY PT AND DAUGHTER.
--- NOTE | 2020-02-19 11:30 | NUR ---
DIETARY ON UNIT, LUNCH TRAY SET UP.
--- NOTE | 2020-02-19 12:48 | NUR ---
PT RESTING IN BED, REPOSITIONED FOR COMFORT. PT STATED PAIN OF 6/10 IN BACK AND KNEE, TO BE MEDICATED ORDERED.
--- NOTE | 2020-02-19 14:18 | NUR ---
PT RESTING IN BED WITH EYES CLOSED, NO DISTRESS NOTED. CALL LIGHT IN REACH. WILL MONITOR.
--- NOTE | 2020-02-19 14:24 | NUR ---
S: NICOLÁS MORGAN is a 74 M who presents with sepsis. He has a history of hypertension. All medications in patient's chart were reviewed. 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 P: Patient is on Cefepim 2g IV Q8H. Vancomycin ordered for pharmacy to dose. Trough is 13 on 02/19/20 Continue Vancomycin 500 mg IV Q8H. Vancomycin trough is drawn before the 4th dose on 02/19/2020 0830. Vancomycin goal trough is between 15-20 mcg/ml. Pharmacy will follow and or advise on antibiotics use as needed.
--- NOTE | 2020-02-19 16:00 | NUR ---
PT BROTHER PAM CALLED WITH CODE, UPDATE GIVEN.
--- NOTE | 2020-02-19 18:00 | NUR ---
PT RESTING IN BED, RESPIRATIONS EVEN/UNLABORED. NO DISTRESS NOTED AT THIS TIME. CALL LIGHT IN REACH. WILL MONITOR.
--- NOTE | 2020-02-19 19:00 | NUR ---
PT ASSISTED TO BSC, AIR MATTRESS SWAPPED OUT FOR NEW. PT ASSISTED BACK TO BED, TOLERATED WELL . CALL LIGHT IN REACH. WILL MONITOR.
--- NOTE | 2020-02-19 19:35 | NUR ---
PATIENT WAS TRANSFERRED TO [facility] [place] BY PER DIEM CLERK, PT ABLE TO TRANSFER.
--- NOTE | 2020-02-19 21:17 | NUR ---
PT AWAKE, ORIENTED X4. HIGH ARCHER'S. NURSING ASSESSMENT PERFORMED. PT ABLE TO FOLLOW ALL COMMANDS, ANSWER ALL QUESTIONS, WAS ABLE TO SPEAK ON THE PHONE WITH A FEMALE FRIEND. ON 2 L/MIN NC, SOB WITH EXERTION ONLY. ABLE TO SWALLOW BEDTIME MEDS. RIJ TRIPLE LUMEN INTACT AND FLUSHING PROPERLY. AFIB ON TELE, HR 80'S. BP WNL, SATS 94%. HEELS REMAIN LEVATED WITH PILLOW, HEEL PROTECTORS PLACED. PT HAS GENERALIZED WEAKNESS. AIR MATRESS INTACT. ABLE TO REPOSITION SELF. ASSISTED WITH MAKING A PHONE CALL TO HIS BROTHER. CALL LIGHT WITHIN REACH.
--- NOTE | 2020-02-19 22:03 | NUR ---
PATIENT RESTS WITH EYES CLOSED. DOES AWAKEN WITH VERBAL STIMULI. IV STEROID GIVEN, PT IN NO ACUTE DISTRESS. NO COMPLAINTS OR NEEDS AT THIS TIME.
--- NOTE | 2020-02-19 22:20 | NUR ---
PATIENT O2 TITRATED TO 3 L/MIN H. PT O2 SAT READ 88% WHILE SLEEPING. STA NOW 95%.
[2020-02-20] VITALS (13 sets, daily range): BP systolic 130–184; BP diastolic 69–104
--- NOTE | 2020-02-20 00:43 | NUR ---
PATIENT RESTS WITH EYES CLOSED. NO ACUTE DISTRESS SHOWN. SATS 100% ON 3 L/MIN NC H. CALL LIGHT WITHIN REACH.
--- NOTE | 2020-02-20 03:38 | NUR ---
RIJ TRIPLE LUMEN DRESSING WAS CHANGED. PT RESTS WITH EYES CLOSED. NO ACUTE DISTRESS SHOWN. CALL LIGHT WITHIN REACH.
--- NOTE | 2020-02-20 05:22 | NUR ---
BLOOD DRAWN FROM [facility] FOR AM LABS. PT AWAKENS WHEN SPOKEN TO, NO ACUTE DISTRESS SHOWN. NO COMPLAINTS OR NEEDS AT THIS TIME. HEELS ARE ELEVATED WITH HEEL PROTECTORS. AIR MATRESS INTACT. CALL LIGHT WITHIN REACH.
--- NOTE | 2020-02-20 05:44 | NUR ---
PATIENT IS AWAKE, WATCHES TV, REQUEST FAN TO BE POINTED TOWRDS HIM. NO ACUTE DISTRESS SHOWN. CALL LIGHT WITHIN REACH.
[2020-02-20 05:52] LABS: HEMATOCRIT 23.3 % (39.0-50.0); MEAN CELL VOLUME 93.6 fL CALC (80.0-100.0); MEAN CORPUSCULAR HGB 26.9 pG CALC (26.0-32.0); MEAN CORPUSCULAR HGB CONC 28.8 g/dL CAL (32.0-36.0); NEUT# 2.96 thou/uL (1.82-7.42); RED BLOOD COUNT 2.49 mill/uL (4.70-6.10); RED CELL DISTRI WIDTH 18.5 % (11.5-15.5)
--- NOTE | 2020-02-20 06:45 | NUR ---
RECIEVED REPORT FROM SO MO. ASSMUED [facility].
[2020-02-20 06:46] LABS: HEMOGLOBIN 6.7 g/dl (14.0-18.0)
[2020-02-20 06:47] LABS: IMMATURE GRANULOCYTES 7.4 % (0.0-5.0)
--- NOTE | 2020-02-20 07:30 | NUR ---
PT A&OX4, ABLE TO MAKE NEEDS KNOWN. RESPIRATIONS EVEN/UNLABORED. CONTINUES WITH SOB UPON EXERTION. SA02@97% ON 02@2LPM/NC. LS CLEAR/DIMINISHED. PRODUCTIVE COUGH WITH THICK WHITE MUCUS NOTED. ALEXANDER REMAINS PATENT, DRAINING TO BSD VIA GRAVITY. RIJ/TL INFUSING NS @ KVO. NO S/S OF INFILTRAION OR INFECTION NOTED AT SITE. CALL LIGHT IN REACH. WILL MONITOR.
--- NOTE | 2020-02-20 08:00 | NUR ---
DR. GREGG AT BEDSIDE FOR ASSESSMENT ABD TO DISCUSS PLAN OF CARE. NEW ORDERS RECIEVED.
--- NOTE | 2020-02-20 08:05 | NUR ---
LAB AT BEDSIDE , NURSE OBTAINED BLOOD DRAW FROM TL. PT TOLERATED WELL. CALL LIGHT IN REACH. WILL MONITOR.
[2020-02-20 08:37] LABS: ANION GAP 6 (6-22 (CALC)); BUN 31 mg/dL (8-23); BUN/CREATININE RATIO 50 (12-20 (CALC)); CHLORIDE 93 mmol/l (95-108); CREATININE 0.6 mg/dL (0.7-1.3); GFR > 60 ML/MIN (>=60 (CALC)); GFR FOR AFR.AMER. > 60 ML/MIN (>=60 (CALC)); MAGNESIUM 1.9 mg/dL (1.6-2.3); POTASSIUM 3.6 mmol/l (3.5-5.1); SODIUM 135 mmol/l (137-146)
--- NOTE | 2020-02-20 09:00 | NUR ---
PT DAUGHTER HANSEL CALLED WITH THE CODE, UPDATE GIVEN.
[2020-02-20 09:07] LABS: CARBON DIOXIDE 40 mmol/l (22-30)
--- NOTE | 2020-02-20 10:34 | NUR ---
PT IS RECEIVING VANCOMYCIN 500MG IV Q8H FOR POSSIBLE SEPSIS, HISTORY OF GRAM POSITIVE BACTEREMIA. GOAL TROUGH 15-20 MCG/ML. PT HAS BEEN DIFFICULT TO GET/REMAIN THERAPEUTIC. YESTERDAY TROUGH WAS 13, TODAY 14. TRENDING UP. WILL RE-CHECK TROUGH TOMORROW @ 0830. PHARMACY WILL CONTINUE TO FOLLOW.
--- NOTE | 2020-02-20 10:40 | NUR ---
PT BROTHER CALLED WITH THE CODE, UPDATE GIVEN.
--- NOTE | 2020-02-20 12:00 | NUR ---
[facility] INFUSING, NO S/S OF DISTRESS OR REACTION. PT MEDICATED FOR R KNEE PAIN/BACK PAIN 12/25 ORDERED, PER PT REQUEST. CALL LIGHT IN REACH. WILL MONITOR.
--- NOTE | 2020-02-20 12:59 | NUR ---
PT RESTING IN BED WITH EYES CLOSED, NO S/S OF DISTRESS NOTED AT THIS TIME. CALL LIGHT IN REACH. WILL MONITOR.
--- NOTE | 2020-02-20 15:52 | NUR ---
RODRIGO AT BEDSIDE FOR PT. PT TOLERATED WELL.
--- NOTE | 2020-02-20 18:23 | NUR ---
PT RESTING IN BED WITH EYES CLOSED, RESPIRATIONS EVEN/ UNLABORED. CALL LIGHT IN REACH. WILL MONITOR
--- NOTE | 2020-02-20 19:30 | NUR ---
RESTING IN BED IN SEMI-FOWLERS POSITION. RESP NON-LABORED AT REST. O2 ON AT 2 L NC. O2 SAT 94% BREATH SOUNDS DIMINISHED, SLT COARSE. MOIST, NON-PRODUCTIVE COUGH PRESENT. ABD DISTENDED AND FIRM WITH HYPOACTIVE BOWEL SOUNDS. ALEXANDER DRAINS CLEAR YELLOW URINE. 1+ PITTING EDEMA OF BLE. HEELS REDDENED, HEEL PROTECTORS IN PLACE AND HEELS ELEVATED ON PILLOW. RIJTLC IN PLACE WITH NS INFUSING AT KVO.CARDIAC MONTIOR SHOWS AFIBWITH LBBB. DISCUSSED PLAN OF CARE. CALL EVANS IN REACH.
--- NOTE | 2020-02-20 22:00 | NUR ---
RESTING IN BED. NO COMPLAINTS VOICED. VSS.
[2020-02-21] VITALS (15 sets, daily range): BP systolic 122–159; BP diastolic 65–107
--- NOTE | 2020-02-21 | NUR ---
RESTING WITH EYES CLOSED. RESP NON-LABORED. VSS. SR ON MONITOR.
--- NOTE | 2020-02-21 02:00 | NUR ---
AWAKE ON ROUNDS. VSS. AFIB WITH BBB ON MONITOR. DIURESING WELL FROM LASIX GIVEN EARLIER.
--- NOTE | 2020-02-21 04:00 | NUR ---
NO CHANGES TO REPORT. IN NO APPARENT DISTRESS. VSS. RESP NON-LABORED. AFIB WITH LBBB ON MONITOR.
--- NOTE | 2020-02-21 06:05 | NUR ---
SLEPT FOR INTERVALS DURING THE NIGHT. VSS. RESP NO-LABORED. MOIST COUGH. DIURESED 2900 FOR THIS SHIFT OF A CLEAR YELLOW URINE. [facility] PATENT, NS CONTINUES TO INFUSE AT O.
--- NOTE | 2020-02-21 06:45 | NUR ---
RECIEVED REPORT FROM SO LAZAR. ASSUMED PT CARE.
--- NOTE | 2020-02-21 07:45 | NUR ---
PT RESTING IN BED, A&0X3, ABLE TO MAKE NEEDS KNOWN. RESPIRATIONS EVEN/UNLABORED SA02@93% ON 2LPM/NC. CONTINUES WITH PRODUCTIVE COUGH, LS INS WHEEZING THROUGHOUT. AFEBRILE. AFIB/LBBB ON TELEMETRY, HR 89. PT DENIES CP OR DISTRESS AT THIS TIME. ALEXANDER REMAINS PATENT, DRAINING TO BSD VIA GRAVITY. HEELS OFF LOADED WITH HEEL PROTECTORS ON. CALL LIGHT IN REACH. WILL MONITOR.
--- NOTE | 2020-02-21 08:00 | NUR ---
DR. GREGG AT BEDSIDE FOR ASSESSMENT AND TO DISCUSS PLAN OF CARE. NEW ORDERS RECIEVED. PT MEDICATED FOR BACK PAIN AND KNEE PAIN 12/25 ORDERED PER PT REQUEST.
[2020-02-21 08:32] LABS: MEAN CELL VOLUME 90.9 fL CALC (80.0-100.0); MEAN CORPUSCULAR HGB 26.6 pG CALC (26.0-32.0); MEAN CORPUSCULAR HGB CONC 29.2 g/dL CAL (32.0-36.0); NEUT# 3.21 thou/uL (1.82-7.42); RED BLOOD COUNT 3.31 mill/uL (4.70-6.10); RED CELL DISTRI WIDTH 17.8 % (11.5-15.5)
--- NOTE | 2020-02-21 08:45 | NUR ---
PT OFF FLOOR TO RADIOLOGY FOR PICC.
[2020-02-21 08:48] LABS: ALKALINE PHOSPHATASE 71 u/l (38-126); BILIRUBIN, TOTAL 0.7 mg/dL (0.0-1.4); BUN 25 mg/dL (8-23); BUN/CREATININE RATIO 42 (12-20 (CALC)); CHLORIDE 91 mmol/l (95-108); CREATININE 0.6 mg/dL (0.7-1.3); GFR > 60 ML/MIN (>=60 (CALC)); GFR FOR AFR.AMER. > 60 ML/MIN (>=60 (CALC)); POTASSIUM 3.1 mmol/l (3.5-5.1); SGOT/AST 30 u/l (19-48); SODIUM 134 mmol/l (137-146)
[2020-02-21 08:58] LABS: ALBUMIN 2.9 g/dL (3.2-5.0); ANION GAP 4 (6-22 (CALC)); CARBON DIOXIDE 42 mmol/l (22-30); TOTAL PROTEIN 5.1 g/dL (6.3-8.2)
--- NOTE | 2020-02-21 09:00 | NUR ---
DR. GREGG NOTIFIED OF LAB RESULTS. NO NEW ORDERS.
[2020-02-21 09:07] LABS: HEMATOCRIT 30.1 % (39.0-50.0); HEMOGLOBIN 8.8 g/dl (14.0-18.0); IMMATURE GRANULOCYTES 7.7 % (0.0-5.0)
--- NOTE | 2020-02-21 09:45 | NUR ---
PT BACK ON UNIT, ASSISTED TO BSC, LG BM FORMED. THEN TO RECLINER.
--- NOTE | 2020-02-21 10:00 | NUR ---
COMPLETE BED BATH, ALEXANDER CARE, SHAVE AND LINEN CHANGE DONE. PT TOLERATED WELL.
--- NOTE | 2020-02-21 10:46 | NUR ---
VANCOMYCIN ORDERED FOR PHARMACY TO DOSE. PT HAS BEEN RECEIVING VANCOMYCIN 500MG IV Q8H FOR SEPSIS/RECENT BACTEREMIA. TROUGH YESTERDAY AND TODAY WAS 14, GOAL TROUGH = 15-20. INCREASE VANCO TO 1Q IV Q12H STARTING TODAY @1200. DRAW TROUGH 02/21 @ 2330. PHARMACY WILL CONTINUE TO FOLLOW.
--- NOTE | 2020-02-21 11:06 | NUR ---
PT BACK TO BED, RESPIRATIONS EVEN/UNLABORED. CALL LIGHT IN REACH. WILL MONITOR.
--- NOTE | 2020-02-21 12:30 | NUR ---
DAUGHTER HANSEL AT BEDSIDE FOR A VISIT.
--- NOTE | 2020-02-21 14:19 | NUR ---
PT AT BEDSIDE FOR THERAPY.
--- NOTE | 2020-02-21 14:40 | NUR ---
02/20/20 Patient is seen for treatment. He is able to sit EOB with modified independence but does take 2-3 minutes to recover from transitional movement. He has decreased chest wall excursion and a weak but productive cough. Today his O2 sats stayed above 93 for the entire treatment . he was able to perform DBE while standing for 20 secs. He remained on 02 via NC the entire time. He is still a good candidate for SNF to improve his funcitnoal mobility as he is has decreased edurance and can only stand for about 2 min at a time
--- NOTE | 2020-02-21 14:41 | NUR ---
PT.Note Entered pt. room as he was in semi-fowlers position. Patient had agreed to particpate in some therapy stating he is tired and has been moving around all day. Initiated session w/ ankle pumps, heel slides, hip abduction for increased movement to LE for increased blood flow. Pt. then performed supine>sit w/ staic seated balance adequate. Did not attempt to stand as he was tired. VC for proper hand placement as he sits up. Sit>supine (independent). Call hammer and tray table by pt. bedside as exited room. Ampac 6 score remains unchanged.
--- NOTE | 2020-02-21 16:00 | NUR ---
PT REPOSITIONED, MEDICATED FOR 6/10 BACK PAIN ORDERED PER PT REQUEST. CALL LIGHT IN REACH. WILL MONITOR.
--- NOTE | 2020-02-21 18:20 | NUR ---
PT RESTING IN BED WITH EYES CLOSED , RESPIRATIONS EVEN/UNLABORED. NO DISTRESS NOTED AT THIS TIME. CALL LIGHT IN REACH. WILL MONITOR.
--- NOTE | 2020-02-21 18:55 | NUR ---
RECEIVED REPORT FROM SO ARANDA. PT RESTING IN BED, WILL CONTINUE TO MONITOR.
--- NOTE | 2020-02-21 19:27 | NUR ---
PT RESTING IN BED, WITH EYES CLOSED, EASILY AROUSED. RESPIRATIONS SHALLOW ON O2 @ 2L VIA NC. LUNGS SOUND DIMINISHED. PEDAL PULSES STRONG. PT DENIES ANY PAIN OR DISCOMFORT AT THIS TIME. CALL EVANS WITHIN REACH. WILL CONTINUE TO MONITOR.
--- NOTE | 2020-02-21 22:05 | NUR ---
PT RESTING IN BED. NO S/S OF DISTRESS AT THIS TIME. 1850CC OF URINE EMPTIED FROM ALEXANDER. SAFETY PRECAUTIONS IN PLACE. WILL CONTINUE TO MONITOR.
[2020-02-22] VITALS (15 sets, daily range): BP systolic 129–170; BP diastolic 70–89
--- NOTE | 2020-02-22 00:39 | NUR ---
PT RESTING IN BED, RESPIRATIONS SHALLOW ON O2 @ 2L VIA NC. NO S/S OF DISTRESS AT THIS TIME. WILL CONTINUE TO MONITOR.
--- NOTE | 2020-02-22 02:29 | NUR ---
PT RESTING IN BED, NO S/S OF DISTRESS.
--- NOTE | 2020-02-22 04:50 | NUR ---
PT RESTING IN BED, NO S/S OF DISTRESS AT THIS TIME.
[2020-02-22 05:52] LABS: HEMATOCRIT 28.1 % (39.0-50.0); HEMOGLOBIN 8.3 g/dl (14.0-18.0); MEAN CELL VOLUME 91.5 fL CALC (80.0-100.0); MEAN CORPUSCULAR HGB CONC 29.5 g/dL CAL (32.0-36.0); NEUT# 2.45 thou/uL (1.82-7.42); RED BLOOD COUNT 3.07 mill/uL (4.70-6.10); RED CELL DISTRI WIDTH 17.5 % (11.5-15.5)
[2020-02-22 06:18] LABS: BUN 25 mg/dL (8-23); BUN/CREATININE RATIO 41 (12-20 (CALC)); CHLORIDE 92 mmol/l (95-108); CREATININE 0.6 mg/dL (0.7-1.3); GFR > 60 ML/MIN (>=60 (CALC)); GFR FOR AFR.AMER. > 60 ML/MIN (>=60 (CALC)); MAGNESIUM 2.1 mg/dL (1.6-2.3); POTASSIUM 3.1 mmol/l (3.5-5.1); SODIUM 134 mmol/l (137-146)
--- NOTE | 2020-02-22 06:23 | NUR ---
PT RESTING IN BED, NO S.S OF DISTRES AT THIS TIME. SAFETY PRC AUTIONS IN PLACE.
[2020-02-22 06:25] LABS: ANION GAP 4 (6-22 (CALC))
[2020-02-22 06:30] LABS: IMMATURE GRANULOCYTES 6.9 % (0.0-5.0)
[2020-02-22 06:34] LABS: CARBON DIOXIDE 41 mmol/l (22-30)
--- NOTE | 2020-02-22 07:35 | NUR ---
pt awake in bed; no apparent distress noted; pt offers no complaints; assessment completed at this time; pt alert and oriented; denies pain; no n/v noted; resp even and unlabored; lungs diminished with exp wheezing noted; skin color wnl; o2 per nc at 3L; moist loose cough noted; hr irreg; strong pulses; edema noted; afib on monitor; abd soft/distended with bs present; no bm noted per insurance underwriter sales; izaguirre to gravity draining clear yellow urine; dual picc line intact to nellie with ivf infusing without complication; TC intact to RIJ; no redness or edema noted at site; dressing cdi to coccyx; air mattress intact; pt repositioned for breakfast; hel protectors intact/ feet floated; plan of care/ am meds explained; call light within reach; will continue to monitor
--- NOTE | 2020-02-22 08:09 | NUR ---
pt transferred to OR via bed with Kinjal Mascorro RN in stable condition; ivf bolus infusing without complication;
--- NOTE | 2020-02-22 08:11 | NUR ---
Dr Singh present at bedside to assess pt and discuss plan of care; daughter present at bedside
--- NOTE | 2020-02-22 08:38 | NUR ---
TLC to RIJ removed as per Dr Singh verbal order; 2x2 applied with occulsive dressing applied; catheter tip intact; pt tolerated well; dual lumen picc flushed and patent flushed and patent; brisk blood return noted from both lumens; will continue to monitor
--- NOTE | 2020-02-22 10:00 | NUR ---
pt resting in bed with eyes closed; no apparent distress noted; resp even and unlabored; iv intact and patent; no redness or edema noted at site; afib on monitor; izaguirre to gravity; o2 per nc; call light within reach; will continue to monitor
--- NOTE | 2020-02-22 12:10 | NUR ---
resting in bed with eyes closed; no apparent distress noted; easily aroused; pt offers no complaints; afib on monitor; izaguirre to gravity; o2 per nc; air mattress; call light within reach; will continue to monitor
--- NOTE | 2020-02-22 13:50 | NUR ---
board writer at bedside to transfer pt to MRI via stretcher; pt states I just had one of those; explained a different procedure could have been done; plan of care/transfer via stretcher explained; pt states I hurt "with all that up and down"; informed pt staff with assist with all moves during transfer; pt refusing; pt requesting to have procedure done up here while in bed; MRI location explained; pt then refusing to go outside to get to MRI van; pt also stating he needs oxygen; pt shown portable o2 tank; pt requesting to have MRI postponed until Tuesday or Tuesday; will notify MD of refusal
--- NOTE | 2020-02-22 13:55 | NUR ---
Dr Crawley called per story writer; made aware pt is refusing MRI at this time; pt request to have test done on Tuesday or Tuesday; pt states "he doesn't want to go outside for the test and he has pain with all this up and down; story writer will again explain importance of test to pt; will continue to monitor
--- NOTE | 2020-02-22 13:57 | NUR ---
pt continues to refuse MRI schedule for today; refusal witnessed per Cata Cheung LPN; importance of test explained; pt aware MD is awaiting MRI results for discharge dispostion; pt refuses
--- NOTE | 2020-02-22 15:56 | NUR ---
awake in bed; slab conditioner supervisor light with complaints of shortness of breath; coughing spell previous noted; pt requesting o2 to be titrated up; co2 retention explained; afib on monitor; RT at bedside; o2 sat 94-95%; call light within reach; will continue to monitor
--- NOTE | 2020-02-22 16:13 | NUR ---
awake; bath, oral care and linen change offered; pt declining at current; will continue to monitor
--- NOTE | 2020-02-22 18:02 | NUR ---
resting in bed with eyes closed; no apparent distress noted; resp even and unlabored; iv intact and patent; izaguirre to gravity; o2 per nc; afib on monitor; dressing intact to coccyx; air mattress; call light within reach
--- NOTE | 2020-02-22 19:25 | NUR ---
PT RESTING IN BED, ALERT AND ORIENTED. RESPIRATIONS SHALLOW ON O2 @ 2L VIA NC. LUNGS SOUND DIMINISHED. PEDAL PULSES ARE WEAK. PT DENIES ANY PAIN OR DISCOMFORT AT THIS TIME. PT TURNED, DRESSING ON BOTTOM REMOVED, PICTURE OBTAINED FOR CHART, NEW DRESS APPLIED. CHANGED SOILED LINEN AT THIS TIME, PT REFUSED BED BATH. PT REPOSITIONED. HEAL PROTECTORS IN PLACE. PT DENIES ANY NEEDS AT THIS TIME. SAFETY PRECAUTIONS IN PLACE. WILL CONTINUE TO MONTIOR.
--- NOTE | 2020-02-22 22:45 | NUR ---
PT RESTING IN BED, ALERT AND ORIENTED. PT PROVIDED WITH PUDDING PER REQUEST. SAFETY PRECAUTIONS IN PLACE. WILL CONTINEU TO MONITOR.
[2020-02-23] VITALS (11 sets, daily range): BP systolic 108–163; BP diastolic 70–96
--- NOTE | 2020-02-23 00:01 | NUR ---
PT RESTING IN BED. NO S/S OF DISTRESS AT THIS TIME.
--- NOTE | 2020-02-23 02:13 | NUR ---
PT RESTING IN BED, NO S/S OF DISTRESS AT THIS TIME.
--- NOTE | 2020-02-23 04:08 | NUR ---
PT RESTING IN BED, RESPIRATIONS SHALLOW ON O2, NO S/S OF DISTRESS
--- NOTE | 2020-02-23 06:33 | NUR ---
PT note 02/22/20 Patient refused physical therapy. He did tell me his dyspnea had improved
--- NOTE | 2020-02-23 07:04 | NUR ---
pt awake in bed; no apparent distress noted; pt offers no complaints; assessment completed at this time; pt alert and oriented; denies pain; no n/v noted; resp even and unlabored; denies sob; lungs diminished throughout; skin color wnl; o2 per nc; loose prod cough/ thick yellow sputum; hr irreg; strong pulses; edema noted to pedal; afib on monitor; abd soft/ distended with bs present; no bm noted per chief underwriter; izaguirre to gravity draining clear yellow urine; dual picc line intact to nellie; ivf infusing as per orders; no redness or edema noted at site; dressing cdi to coccyx; air mattress intact; feet floated with heel protectors intact; pt repositioned to left side; pt encouraged to turn from side to side and stay off back as much as possible; pt refusing to get up to chair; pt refusing bath this morning; call light within reach; will continue to monitor
--- NOTE | 2020-02-23 07:53 | NUR ---
S: NICOLÁS MORGAN is a 74 M who presents with SEPSIS . He has a history of PNEUMONIA AND PSEUDOMONAS AERUGINOSA IN BLOOD CULTURE . All medications in patient's chart were reviewed. O: VS: BP 108/70, P 70, RR 22,T 97.8 W 73kg, HT 70IN, Scr=0.6 A: Blood culture PSEUDOMONAS AERUGINOSA P: Patient is on CEFEPIME 2GRAMS Q8H . Vancomycin ordered for pharmacy to dose. TROUGH IS 16 ON 02/23/20 Continue Vancomycin 1000mg IV Q12H. Vancomycin trough is drawn before the dose on 02/25/20 @1130. Vancomycin goal trough is between <15-20 mcg/ml>. Pharmacy will follow and or advise on antibiotics use as needED ROGER QUACHD
--- NOTE | 2020-02-23 08:04 | NUR ---
awake in bed eating breakfast; no apparent distress noted; pt offers no complaints; iv intact; afib on monitor; o2 per nc; call light within reach; will continue to monitor
--- NOTE | 2020-02-23 10:01 | NUR ---
resting in bed with eyes closed; no apparent distress noted; resp even and unlabored; o2 per nc; afib on monitor; awakened and self repositioned to right side; izaguirre to gravity; call light within reach; will continue to monitor
--- NOTE | 2020-02-23 10:16 | NUR ---
Dr Fowler present at bedside to assess pt and discuss plan of care
[2020-02-23 10:58] LABS: ANION GAP 5 (6-22 (CALC)); BUN 28 mg/dL (8-23); BUN/CREATININE RATIO 44 (12-20 (CALC)); CARBON DIOXIDE 39 mmol/l (22-30); CHLORIDE 94 mmol/l (95-108); CREATININE 0.6 mg/dL (0.7-1.3); GFR > 60 ML/MIN (>=60 (CALC)); GFR FOR AFR.AMER. > 60 ML/MIN (>=60 (CALC)); POTASSIUM 3.3 mmol/l (3.5-5.1); SODIUM 135 mmol/l (137-146)
--- NOTE | 2020-02-23 12:13 | NUR ---
awake in bed eating lunch; no apparent distress noted; pt offers no complaints; iv intact and patent; afib on monitor; izaguirre to gravity; o2 per nc; pt self repositions; call light within reach; will continue to monitor
--- NOTE | 2020-02-23 14:10 | NUR ---
resting in bed with eyes closed; no apparent distress noted; resp unlabored; o2 per nc; izaguirre to gravity; iv intact and patent; afib on monitor; call light within reach; will continue to monitor
--- NOTE | 2020-02-23 16:00 | NUR ---
awake in bed; no apparent distress noted; pt with complaints of sore throat; iv intact and patent; no redness or edema noted at site; o2 per nc; izaguirre to gravity; afib on monitor; air mattress; pt repositioned to right side; side repositioning noted through the day; call light within reach; will continue to monitor
--- NOTE | 2020-02-23 18:20 | NUR ---
awake in bed watching tv; no apparent distress noted; pt offers no complaints; iv intact and patent; no redness or edema noted at site; afib on monitor; izaguirre to gravity; o2 per nc; call light within reach
--- NOTE | 2020-02-23 20:10 | NUR ---
PT RESTING IN BED WITH EYES CLOSED, EASILY AROUSED. RESPIRATIONS EVEN AND UNLABORE ON O2 @ 3L VIA NC. LUNGS SOUND DIMINISHED. PEDAL PULSE WEAK. PICC IN UP RIGHT ARM PATENT AND APPEARS HEALTHY. ALEXANDER DRAINING TO GRAVITY. PT DENIES ANY NEEDS AT THIE TIME. SAFETY PRECAUTIONS IN PLACE. WILL CONTINUE TO MONITOR.
[2020-02-24] VITALS (11 sets, daily range): BP systolic 132–154; BP diastolic 74–93
--- NOTE | 2020-02-24 00:02 | NUR ---
PT RESTING IN BED. NO S/S OF DISTRESS AT THIS TIME. SAFETY PRECAUTIONS IN PLACE. WILL CONTINUE TO MONITOR.
--- NOTE | 2020-02-24 04:00 | NUR ---
PT RESTING IN BED, RESPIRATIONS SHALLOW ON O2 @ 3L VIA NC. NO S/S OF DISTRESS AT THIS TIME. SAFEYT PRECAUTIONS IN PLACE. WILL CONTINUE TO MONITOR.
--- NOTE | 2020-02-24 07:40 | NUR ---
pt awake in bed; no apparent distress noted; pt offers no complaints; assessment completed at this time; pt alert and oriented; denies pain; no n/v noted; resp even and unlabored; lngs diminished throughout; skin color wnl; o2 per nc at 3l; titrated to 2l; andrés loose nonprofit financial controller cough notedl exertional sob noted; hr irreg; strong pulses; 1+ edema noted; afib on monitor; abd soft/ distended with bs present; no bm noted per policy writer; izagiurre to gravity draining clear yellow urine; catheter care at this time; dual lumen picc intact to nellie; ivf infusing without complication; no redness or edema noted at site; dressing cdi to coccyx; air mattress intact; repositioned; self repositioning strongly encouraged q2h; plan of care/ am meds explained; call light within reach; will continue to monitor
--- NOTE | 2020-02-24 08:15 | NUR ---
awake in bed; no apparent distress noted; pt offers no complaints; iv intact; afib on monitor; izaguirre to gravity; call light within reach; will continue to monitor
--- NOTE | 2020-02-24 09:45 | NUR ---
Dr Fowler at bedside
--- NOTE | 2020-02-24 09:57 | NUR ---
labs obtaine via picc line as per orders; iv flushed and heparin instill as per protocol; will continue to monitor
--- NOTE | 2020-02-24 10:20 | NUR ---
resting in bed with eyes closed; no apparent distress noted; resp even and unlabored; iv intact and patent; afib on monitor; o2 per nc; izaguirre to gravity; call light within reach; will continue to monitor
[2020-02-24 10:28] LABS: ANION GAP 5 (6-22 (CALC)); BUN 27 mg/dL (8-23); BUN/CREATININE RATIO 43 (12-20 (CALC)); CARBON DIOXIDE 38 mmol/l (22-30); CHLORIDE 93 mmol/l (95-108); CREATININE 0.6 mg/dL (0.7-1.3); GFR > 60 ML/MIN (>=60 (CALC)); GFR FOR AFR.AMER. > 60 ML/MIN (>=60 (CALC)); POTASSIUM 3.1 mmol/l (3.5-5.1); SODIUM 132 mmol/l (137-146)
--- NOTE | 2020-02-24 11:30 | NUR ---
nursing Sup present at bedside for extensive encouoragement to allow staff ro bathe pt; pt declined;
--- NOTE | 2020-02-24 11:58 | NUR ---
K+ results reviewed with MD; orders received and on chart
--- NOTE | 2020-02-24 12:00 | NUR ---
pt awake in bed; no apparent distress noted; pt offers no complaints; iv intact and patent; no redness or edema noted at site; afib on monitor; izaguirre to gravity; eating lunch; call light within reach; will continue to monitor
--- NOTE | 2020-02-24 14:04 | NUR ---
resting in bed with eyes closed; no apparent distress noted; resp even and unlabored; iv intact and patent; no redness or edema noted at site; afib on monitor; izaguirre to gravity; o2 per nc; awakened to self reposition; call light within reach; will continue to monitor
--- NOTE | 2020-02-24 16:15 | NUR ---
awake in bed; denies needs; deny pain; iv intact and patent; no redness or edema noted at site; pt directed to self reposition; afib on monitor; o2 per nc; izaguirre to gravity; call light within reach; will continue to monitor
--- NOTE | 2020-02-24 18:02 | NUR ---
awake in bed; declined dinner; offers no complaints; iv intact; afib on monitor; air mattress; o2 per nc; izaguirre to gravity; call light within reach
--- NOTE | 2020-02-24 19:00 | NUR ---
RECEIVED REPORT FROM AM NURSE. PATIENT CURRENTLY RESTING IN BED. NO SIGNS OF DISTRESS. VITALS STABLE. WILL CONTINUE TO MONITOR.
--- NOTE | 2020-02-24 20:00 | NUR ---
PATIENT REQUESTING ASSISTANCE WITH USING BSC. PATIENT PIVOTED TO BSC. PATIENTS BED LINEN CHANGED. ASSISTED BATH PROVIDED. PATIENT TIRED WITH EXERTION. PATIENT HAD LARGE BOWEL MOVEMENT. WOUND DRESSING ON SACRUM CHANGED. PATIENT ASSITED BACK TO BED. WILL CONTINUE TO MONITOR PATIENT.
--- NOTE | 2020-02-24 22:00 | NUR ---
PATIENT RESTING IN BED. PATIENT VITALS STABLE. PATIENT WITH NO COMPLAINTS OF PAIN OR DISCOMFORT. PATIENT WITH NO SIGNS OF DISTRESS. WILL CONTINUE TO [facility].
[2020-02-25] VITALS (10 sets, daily range): BP systolic 115–155; BP diastolic 72–84
--- NOTE | 2020-02-25 | NUR ---
PATIENT SLEEPING. PATIENT WITH NO SIGNS OF PAIN OR DISCOMFORT. PATIENT VITALS STABLE. WILL CONTINUE TO MONITOR.
--- NOTE | 2020-02-25 02:00 | NUR ---
PATIENT SLEEPING. PATIENT VITALS STABLE. PATIENT STATES HIS THROAT/MOUTH HURT. PRN LOZENGE GIVEN. PATIENT WITH NO SIGNS OF DISTRESS. ALEXANDER WITH GOOD OUTPUT. WILL CONTINUE TO MONITOR.
--- NOTE | 2020-02-25 04:00 | NUR ---
PATIENT SLEEPING. PATIENT WITH NO PAIN OR DISCOMFORT. PATIENT VITALS STABLE. FLUIDS INFUSING. WILL CONTINUE TO MONITOR PATIENT.
--- NOTE | 2020-02-25 07:00 | NUR ---
REPORT RECEIVED FROM SO MCDONOUGH. PT RESTING IN BED SEMI FOWLERS; ALERT AND ORIENTED. C/O MILD BACK PAIN AND SORENESS TO MOUTH THAT IS WORSE WHEN EATING. RESPIRATIONS EVEN AND UNLABROED ON OXYGEN 2L VIA NC. PT ON AIRMATTRESS DUE TO STAGE II PRESSURE WOUND TO COCCYX; DUODERM INTACT TO AREA. DOUBLE LUMEN PICC LINE TO ERASTO IS CDI; IV FLUIDS INFUSING AT KVO WITHOUT DIFFICULTY. ALEXANDER DRAINING CLEAR PALE YELLOW URINE IN LARGE AMOUNTS. AFIB ON LOGGING TRUCK DRIVER. PLAN OF CARE REVIEWED. PT ENCOURAGED TO VERBALIZE CONCERNS. STATES UNDESTANDING. SAFETY MEASURES IN PLACE. CALL LIGHT WITHIN REACH.
--- NOTE | 2020-02-25 11:37 | NUR ---
PT AT BEDSIDE; PT SITTING UP ON EDGE OF BED AND AMBULATING WITH WALKER. DAUGHER AT BEDSIDE WELL. DAUGHTER CONCERNED THAT SORES TO MOUTH MAY BE CANCER PER HER GOOGLE SEARCH OF HIS SYMPTOMS. ALSO CALLS NURSE TO ROOM CONCERNED ABOUT AREA TO BACK; AREA IS A SKIN GROWTH; NO OPEN AREA OR SKIN CONCERNS TO BACK. PRODUCTIVE COUGH CONTINUES. POOR APETITE DUE TO DISCOMFORT IN MOUTH.
--- NOTE | 2020-02-25 13:01 | NUR ---
PT. Note Pt. was supine upon entering room. Pt. had agreed to participate in therapy session to the best he can. Performed supine>sitO2 stats below 90 as he sits up, breathing techniques executed until O2 >93. Pt. static seated for a couple min, stated he was feeling light headed, DC therapy. Sit>supine (Min A) pt. raised LE over bedside for patient. O2 stats dipped below 90, pt executed breathing techniques to increase O2>93. pt. was siine w/ tray table and call hammer by side. Pt was accompanied by daughter.
--- NOTE | 2020-02-25 13:45 | NUR ---
PT TRANSFERRED TO [facility] ROOM 272 VIA BED WITH ICU NURSE AND COFFEE SHOP ATTENDANT ON OXYGEN AND IN STABLE CONDITION. BEDSIDE REPORT GIVEN TO NOA. PT REPOSITIONED WITH PILLOWS. ORIENTED TO NEW ROOM AND CALL LIGHT SYSTEM. VANCO INFUSING AT THIS TIME. CALL LIGHT WITHIN REACH.
--- NOTE | 2020-02-25 14:30 | NUR ---
DAUGHTER UPDATED ON PT'S NEW LOCATION VIA TELEPHONE; UPDATE GIVEN.
--- NOTE | 2020-02-25 14:42 | NUR ---
S: NICOLÁS MORGAN is a 74 M who presents with Sepsis. He has a history of Acute on chronic respiratory failure with hypoxia and hypercapnia. All medications in patient's chart were reviewed. O: VS: BP 121/80 mmHg, P 72 bpm, RR 21 breaths/min, T 96.9 F W 73.6 kg, HT152.4cm, Scr= 0.6 ml/min, CrCl= 66.4 ml/min A: Blood culture shows pansentive to pseudomonas aeruginosa which is senstive to Cefepime. P: Patient is on Vancomycin with trough levels 13 ug/mL. Vancomycin ordered for pharmacy to dose. Start Vancomycin 1g IV Q12H. Vancomycin trough is drawn before the 4th dose on 02/25 at 2330. Vancomycin goal trough is between <15-20 mcg/ml>. Pharmacy will follow and or advise on antibiotics use as needed.
--- NOTE | 2020-02-25 15:30 | NUR ---
PT WAS TRANSFERRED FROM ICU AND RECEIVED REPORT FROM DENG AT BEDSIDE. PT IS ALERT AND ORIENTED AND ABLE TO MAKE NEEDS KNOWN. SKIN WARM TO TOUCH. COMPLAINED OF MOUTH DISCOMFORT AND HAS MEDICATION SCHEDULED. DECLINED DRESSING TO COCCYX AT THIS TIME STATING HE WOULD LIKE TO REST. WILL ATTEMPT TO CHANGE DRESSING AT LATER TIME. CONTINUES ON IV ABT WITH NO ADVERSE SIDE EFFECTS. PT IS TO HAVE MRI DONE THIS AFTERNOON. PICC LINE TO RIGHT UPPER ARM INTACT. DRESSING INTACT. WILL CONTINUE TO OBSERVE.
--- NOTE | 2020-02-25 19:45 | NUR ---
PT SLEEPING WHEN I ENTERED THE ROOM. IV LASIX AND ANTIBIOTIC THERAPY ADMINISTERED AT THIS TIME. IVF RUNNING @10 PRIOR TO ADMINISTRATION. NO S/O DISTRESS, LIGHTS OUT W/TV ON LOW. AIR MATTRESS IN PLACE AND ALEXANDER CATH PATENT/DRAINING CLEAR YELLOW URINE. .
--- NOTE | 2020-02-25 19:52 | NUR ---
PT REFUSED MRI TODAY STATING THAT HIS BACK AND STOMACH HURT. DR. SANTIZO MADE AWARE.
--- NOTE | 2020-02-26 01:27 | NUR ---
PT MEDICATED ORDERS PROVIDE W/ANTIBIOTIC THERAPY. PT SLEEPING AT THIS TIME. NO S/O DISTRESS NOTED. CALL LIGHT W/IN REACH.
[2020-02-26 04:16] VITALS: BP 97/67
--- NOTE | 2020-02-26 04:32 | NUR ---
PT MEDICATED AND REPOSITIONED. PT IS ABLE TO SELF TURN AND BOOST. PICTURES OBTAINED FOR CHART OF COCCYX STAGE 2 WOUND AND AQUACELL PLACED.
--- NOTE | 2020-02-26 07:44 | NUR ---
ASSESSMENT IS COMPLTED: IV SITE IS FREE FROM REDNESS OR EDEMA. HR IS REG,PULSES ARE STRONG X4, ABD IS SOFT WITH ACTIVE BS. BREATH SOUNDS ARE CLEAR,BILATERALLY . O2 @ 2LITERS WITH NC. ALEXANDER DRAINING YELLOW URINE. AIR MATTRESS IN PLACE. TELE MONITOR IN PLACE. CONTINUE TO OSEBRVE AND MONITOR.
[2020-02-26 07:45] VITALS: BP 115/71
[2020-02-26 11:09] LABS: HEMATOCRIT 31.8 % (39.0-50.0); HEMOGLOBIN 9.2 g/dl (14.0-18.0); MEAN CELL VOLUME 93.3 fL CALC (80.0-100.0); MEAN CORPUSCULAR HGB CONC 28.9 g/dL CAL (32.0-36.0); RED BLOOD COUNT 3.41 mill/uL (4.70-6.10)
[2020-02-26 11:30] LABS: ALBUMIN 2.7 g/dL (3.2-5.0); ALKALINE PHOSPHATASE 69 u/l (38-126); ANION GAP 6 (6-22 (CALC)); BUN 33 mg/dL (8-23); BUN/CREATININE RATIO 39 (12-20 (CALC)); CARBON DIOXIDE 38 mmol/l (22-30); CHLORIDE 95 mmol/l (95-108); CREATININE 0.8 mg/dL (0.7-1.3); GFR > 60 ML/MIN (>=60 (CALC)); GFR FOR AFR.AMER. > 60 ML/MIN (>=60 (CALC)); POTASSIUM 3.6 mmol/l (3.5-5.1); SGOT/AST 17 u/l (19-48); SODIUM 136 mmol/l (137-146); TOTAL PROTEIN 4.6 g/dL (6.3-8.2)
[2020-02-26 11:37] LABS: BILIRUBIN, TOTAL 0.4 mg/dL (0.0-1.4)
--- NOTE | 2020-02-26 12:15 | NUR ---
PT IS RELAXING IN BED WITH NO DISTRESS NOTED.
--- NOTE | 2020-02-26 14:50 | NUR ---
PT.Note Entered pt. room as he was supine watching tv. Pt had agreed to participate in therapy session. Ther exercises pt. executed ankle pumps, heel slides, hip abduction(O2 stats remained above 92%), supine>sit(independant) VC for correct hand placement. Satic seated balance adequate, sit>stand(MIN A) VC for proper hand placement as he ascends to a standing position. Pt. took 2 small steps ant/post., pt. stated he was light headed. DC act, pt descended to a seated position (MIN A), sit>supine (MIN A) need assistance w/ LE to bring over bedside. Tray table and call hammer by patient bed side as exited room. [facility] 6 score 13
[2020-02-26 15:12] VITALS: BP 114/73
--- NOTE | 2020-02-26 16:00 | NUR ---
PT IS RELAXING I BED WITH NO DISTRESS NOTED. IV SITE IS FREE FROM REDNESS OR EDEMA.
[2020-02-26 18:51] VITALS: BP 109/70
--- NOTE | 2020-02-26 19:29 | NUR ---
ATTEMPTED TO CALL RADIOLOGY/MRI FOR TIMING UPDATE ON OBTAINING MRI FOR PT ORDERED. UNABLE TO MAKE CONTACT AT THIS TIME. WILL FOLLOW-UP LATER.
--- NOTE | 2020-02-26 20:07 | NUR ---
PT MEDICATED AND ASSESSMENT COMPLETED AT THIS TIME. NO S/O DISTRESS NOTED. PT REPORTS FEELING MUCH BETTER THAN PREVIOUS NIGHT.
--- NOTE | 2020-02-26 23:44 | NUR ---
IV ANTIBIOTIC THERAPY ADMINISTERED AT THIS TIME. PT IS SLEEPING SOUNDLY, NO S/O DISTRESS NOTED. CALL LIGHT W/IN REACH. LIGHTS ARE OFF AND TV IS ON.
--- NOTE | 2020-02-27 03:27 | NUR ---
PT MEDICATED ORDERS PROVIDE W/IV ANTIBIOTIC THERAPY. PT IS SLEEPING, NO S/O DISTRESS NOTED.
[2020-02-27 04:35] VITALS: BP 113/74
[2020-02-27 08:32] VITALS: BP 130/79
--- NOTE | 2020-02-27 08:32 | NUR ---
RECIEVED REPORT FROM SO BURGOS. PT RESTING IN LOW FWOLERS POSITIION UPON ENTERING ROOM. INTRODUCED SELF TO PT AND DISCUSSED POC. ASSESSMENT AND VITALS COMPLETED AT THIS TIME. RESPIRTAIONS ARE EVEN AND UNLABORED WITH NO SIGNS OF DISTRESS. LUNG SOUNDS ARE COARSE. HEART RHYTHM IS NORMAL. BOWEL SOUNDS ARE ACTIVE IN ALL QUADRANTS. LAST REPORTED BM 02/26/20. RADIAL AND PEDAL PULSES ARE STRONG WITH NORMAL CAPILLARY REFILL.PICC IN ERASTO RUNNNING WITH NS AT 10ML ORDERED, SITE APPEARS HEALTHY AND PATENT WITH GOOD BLOOD RETURN. PT PRESENTS WITH STAGE 2 PRESSURE SORE ON COCCYX, AQUACEL APPILED.PT DENESIA ANY PAIN OR DISCOMFORTS AT THIS TIME. ALL SAFETY PRECAUTIONS ARE IN PLACE WITH CALL LIGTH IN REACH.WILL CONTINUE TO MONITOR
--- NOTE | 2020-02-27 09:33 | NUR ---
PT BEING TRANSPORTED TO MRI BY [facility] VIA WHEELCHAIR IN STABLE CONDITION
--- NOTE | 2020-02-27 10:05 | NUR ---
pt reported he already exercised this morning and does not want to participate in physical therapy at this time. ampac=13
--- NOTE | 2020-02-27 12:01 | NUR ---
PT SLEEPING IN LOW ARCHER POSITION. RESPIRATIONS ARE EVEN AND UNLABORED WITH NO SIGNS OF DISTRESS. NO SIGNS OF ANY PAIN. ALL SAFETY PRECAUTIONS IN PLACE WITH CALL LIGHT IN REACH.WILL CONTINUE TO MONITOR
--- NOTE | 2020-02-27 14:04 | NUR ---
VANCO ORDERED FOR PHARMACY TO DOSE. TROUGH TODAY WAS 19, GOAL 15-20. TIMING OF TROUGH AND DOSES WERE OFF, WILL CHANGE TIMING OF DOSES BUT KEEP SAME DOSE. CONTINUE VANCO 1G IV Q12H STARTING AT 1700 THIS EVENING, ALLOWING TIME FOR PT TO CLEAR.
--- NOTE | 2020-02-27 16:00 | NUR ---
PT RESTING IN SEMI FOWLERS POTIION WATCHING TV, RESPIRATIONS ARE EVEN AND UNLABORED WITH NO SIGNS OF DISTRESS. ALL SAEFTY PRECAUTIONS ARE IN PLACE WITH CALL LIGHT IN REACH.WILL CONTINUE TO MONITOR
[2020-02-27 16:43] VITALS: BP 109/64
[2020-02-27 19:19] VITALS: BP 116/72
--- NOTE | 2020-02-27 20:50 | NUR ---
PT RESTING IN BED, ALERT AND ORIENTED. RESPIRATIONS EVEN AND UNLABORED ON O2 @ 2L VIA NC. LUNGS SOUND DIMINISHED. PEDAL PULSES WEAK. SAFETY PRECAUTIONS IN PLACE. WILL CONTINUE TO MONTIOR.
--- NOTE | 2020-02-28 04:00 | NUR ---
PT RESTING IN BED RESPIRATIONS EVEN AND UNLABORED ON O2 @ 2L VIA NC. NO S/S OF DISTRESS AT THIS TIME. WILL CONTINUE TO MONITOR.
[2020-02-28 05:09] VITALS: BP 109/72
[2020-02-28 06:14] LABS: HEMATOCRIT 27.7 % (39.0-50.0); HEMOGLOBIN 7.9 g/dl (14.0-18.0); MEAN CORPUSCULAR HGB 26.2 pG CALC (26.0-32.0); MEAN CORPUSCULAR HGB CONC 28.5 g/dL CAL (32.0-36.0); RED BLOOD COUNT 3.01 mill/uL (4.70-6.10); RED CELL DISTRI WIDTH 17.7 % (11.5-15.5)
[2020-02-28 06:31] LABS: ALBUMIN 2.4 g/dL (3.2-5.0); ALKALINE PHOSPHATASE 60 u/l (38-126); ANION GAP 5 (6-22 (CALC)); BUN 35 mg/dL (8-23); BUN/CREATININE RATIO 52 (12-20 (CALC)); CARBON DIOXIDE 37 mmol/l (22-30); CHLORIDE 96 mmol/l (95-108); CREATININE 0.7 mg/dL (0.7-1.3); GFR > 60 ML/MIN (>=60 (CALC)); GFR FOR AFR.AMER. > 60 ML/MIN (>=60 (CALC)); POTASSIUM 3.5 mmol/l (3.5-5.1); SGOT/AST 15 u/l (19-48); SODIUM 134 mmol/l (137-146); TOTAL PROTEIN 4.2 g/dL (6.3-8.2)
[2020-02-28 06:38] LABS: BILIRUBIN, TOTAL 0.2 mg/dL (0.0-1.4)
[2020-02-28 08:14] VITALS: BP 122/77
[2020-02-28 08:24] VITALS: BP 109/50
--- NOTE | 2020-02-28 08:40 | NUR ---
DR GREGG AT BEDSIDE DISCUSSING POC AT THIS TIME
--- NOTE | 2020-02-28 08:59 | NUR ---
RECIEVED REPORT FROM SO BUNN. PT RESTING IN SEMI FOWLERS POSITION UPON ENTERING ROOM. INTRODUCED SELF TO PT AND DISCUSSED POC. ASSESSMENT AND VITALS COMPLETED. RESPIRATIONS ARE EVEN AND UNLABROED WIHT NO SIGNS OF DISTRESS. LUNG SOUNDS ARE CLEAR. HEART RHYTHM IS NORMAL. BOWEL SOUNDS ARE ACTIVE IN ALL QUADRANTS, LAST REPORTED BM 02/26/20. RADIAL AND PEDAL PULSES ARE STRONG WITH NORMAL CAPILLARY REFILL. DOYBLE LUMEN PICC RUNNING WITH FLUIDS AT 10 ORDERED, SITE APPEARS HEALTHY AND PATENT WITH GOOD BLOOD RETURN. PT PRESENTS WITH ALEXANDER CATHATER THAT REMIANS IN PLACE AND UNKINKED. PT DENIES ANY PAIN OR DISCOMORTS AT THSI TIME. ALL SAFETY PRECAUTIONS ARE IN PLACE WITH CALL LIGHT IN REACH. WILL CONTINUE TO MONITOR
--- NOTE | 2020-02-28 11:45 | NUR ---
ALEXANDER CATHATER REMOVED AT THIS TIME, WRITTER ASSISTED BY JENNIE. PT TOLERATED WELL.URINAL PLACED AT BEDSIDE. EDUCATED PT ON THE NEED TO FOID AFTER CATHATER REMOVAL. PT VERBALIZED UNDSSTANDING. ALL SAFETY PRECAUTIONS ARE IN PLKACE WITH CALL LIGTH IN REACH. WILL CONTINUE TO MONITOR
--- NOTE | 2020-02-28 12:13 | NUR ---
PT.NOTE Mr. Hernandez was in semi-fowlers position upon entering room. Pt had agreed to participate in therapy session. Supine>sit (independent), sit>stand(MIN A) VC for correct hand placement as he ascends to a standing position. Static standing for WB purposes, Instructed pt. to stand upright w/ eyes forward and chest out x 3, O2 stats remained above 92% during activities. Stand>sit(independent) slow controlled manner as he descends to a seated position. Sit>supine (MIN A) w/ LE to bring over bedside. Pt. was in semi-fowlers [position as exited room. Tray table and call hammer by pt. side. AMPAC 6 score remains unchanged.
--- NOTE | 2020-02-28 13:44 | NUR ---
100ML OF CLEAR YELLOW URINE EMPTIED FROM URINAL.RE-EDUCATED PT ON WATCHING HOW MUCH URINE IS PUTTING OUT . PT VERBALIZED UNDERSTANDING. ALL SFAETY PRECFAUTIONS ARE IN PLACE WITH CALL LIGHT IN REACH. WILL CONTINUE TO MONITOR
[2020-02-28 15:45] VITALS: BP 118/73
--- NOTE | 2020-02-28 16:05 | NUR ---
CONSULT WITH INFECTION DISEASE AT THIS TIME.PLANNED ANTIBIOTICS FOR DISCHARGE. PT RESTING IN BED WATCHING TV. RESPIRATIONS ARE EVEN AND UNLABORED. PT DENIES ANY CONCERNS AT THIS TIME. ALL SAFETY PRECAUTIONS ARE IN PLACE WITH CALL LIGHT IN REACH
--- NOTE | 2020-02-28 16:08 | NUR ---
PT RESTING IN SEMI FOWLERS POSITION WATCHING TV. RESPIRATIONS ARE EVEN AND UNLABORED WITH NO SIGNS OF DISTRESS. BED ELVATED AT 90 DEGREES FRO ASPIRATION PRECAUTIONS. ALL SAFETY PRECAUTIONS ARE IN PLACE WIHT CLAL LIGHT IN REACH. WILL COTNINUE TO MONITOR
[2020-02-28 19:19] VITALS: BP 105/65
--- NOTE | 2020-02-28 19:30 | NUR ---
PT RESTING IN BED, RESPIRATIONS EVEN AND UNLABORED ON O2 @ 2L VIA NC. LUNGS SOUND DIMINISHED. PEDAL PULSES WEAK. PT DENIES ANY PAIN OR DISCOMFORT AT THIS TIME. PICC IN RUST APPEARS HEALTHY, INFUSING VANCO @ 125 ML/HR. SAFETY PRECAUTIONS IN PLACE. WILL CONTINUE TO MONITOR.
--- NOTE | 2020-02-29 00:36 | NUR ---
PT RESTING IN BED, NO S/S OF DISTRESS AT THIS TIME. SAFETY PRECAUTIONS IN PLACE. WILL CONTINUE TO MONITOR.
[2020-02-29 03:37] VITALS: BP 111/69
--- NOTE | 2020-02-29 04:15 | NUR ---
PT RESTING IN BED. PICC DRESSING CHANGED AT THIS TIME. PT TOLERATED WELL. SAFETY PRECAUTIONS IN PLACE. WILL CONTINUE TO MONITOR.
[2020-02-29 08:20] VITALS: BP 116/75
--- NOTE | 2020-02-29 08:20 | NUR ---
RECIEVED REPORT FROM SO BUNN. PT RESTING IN SEMI FOWLERS EATING BREAKFAST UPON ENTERING ROOM.INTRODUCED SELF TO PT AND DISCUSSED POC.ASSESSMENT AND VIATSL COMPLETED AT THSI TIME.RESPIRATIONS ARE EVEN AND UNLABORED WITH NO SIGNS OF DISTRESS. LUNG SOUNDS ARE DIMINISTHED. HEART RHYTHM IS NORMAL. BOWEL SOUNDS ARER ACTIVE, LAST REPORTED BM 02/26/20. RADIAL AND PEDAL PULSES ARE STRONG WITH NORMAL CAPILLARY REFILL. PICC LINE IN ERASTO FLUSHED WITH GOOD BLODD RETURN. PT DENIES ANY PAIN OR DISCOMFORTS AT THIS TIME. ALL SFAETY PRECAUTIONS ARE IN PLACE WITH CALL LIGHT IN [facility]. WILL CONTINUE TO MONITOR
--- NOTE | 2020-02-29 08:31 | NUR ---
DR GREGG AT BEDSIDE DISCUSSING POC WITH PT
[2020-02-29] MEDS ORDERED: VANCOMYCIN HCL1 G1 IV (10:59)
[2020-02-29] MEDS ORDERED: CEFEPIME2 GM IV (10:59)
--- NOTE | 2020-02-29 11:43 | NUR ---
MOM AND PRUNE JUICE ADMINSISTERED AT THIS TIME TO ASSIST WITH BM
--- NOTE | 2020-02-29 11:55 | NUR ---
pt reported he was tired from morning activities and did not wish to participate in physical therapy right now but maybe later. ampac=13
--- NOTE | 2020-02-29 13:58 | NUR ---
S: NICOLÁS MORGAN is a 74 M who presents with recent bactermia. He has a history of hypertension. All medications in patient's chart were reviewed. O: Trough is 13 on 02/29/2020 VS: BP 116/75 mmHg, P 86 bpm, RR 20 breaths/minute, T 96.9 F W 73.595 kg, HT 177.8 cm, Scr= 1 mg/dl, CrCl= 66.4 ml/min A: Blood culture shows Pseudomonas Aeruginosa which is sensitive to Cefepime. P: Patient is on Cefepime 2g IV Q8H. Vancomycin ordered for pharmacy to dose. Continue Vancomycin 1g IV Q12H. Vancomycin trough is to be drawn 03/02/2020 0430. Vancomycin goal trough is between 15-20 mcg/ml. Pharmacy will follow and or advise on antibiotics use as needed.
[2020-02-29 15:05] VITALS: BP 112/65
--- NOTE | 2020-02-29 15:38 | NUR ---
PT RESTING IN SEMI FOWLERS POSITION WATCHING TV UPON ENTERING ROOM. PT INFORMED WRITTER THAT HE HAS YET TO HAVE BM. WRITTER EDUCATED PT THAT A BM WAS NEEDED BEFORE DISCHARGE. PT STATED "IT TAKES TIME FOR THE [employer] TO WORK" WRITTER SUGGESTED DRESSING CHANGE AND PICTURE DOCUMENTATION ON COCCYX AT THIS TIME. PT REFUSED STATIN G "NO JUST WAIT UNTIL I GO POOP".ALL SAFETY PRECAUTIONS ARE IN PLACE AT THSI TIME WITH CALL LIGHT IN REACH. WILL CONTINUE TO MONITOR
[2020-02-29 19:20] VITALS: BP 107/63
--- NOTE | 2020-02-29 20:30 | NUR ---
PHYSICAL ASSESMENT COMPLETE. SCHEDULED MEDICATIONS ADMINISTERED, SEE E-MAR. PT AWARE DISCHARGE PENDING BOWEL MOVEMENT. PT REPORTS HE HAS NOT BEEN ABLE TO PASS BOWEL MOVEMENT. PT TOOK SCHEDULED STOOL SOFTENER, DECLINES OFFER OF PRUNE JUICE. PT DENIES FURTHER NEEDS AT THIS TIME. PLAN OF CARE REVIEWED. PT DENIES QUESTIONS, VERBALIZES UNDERSTANDING. PERSONAL ITEMS WITHIN REACH. BED LOCKED IN LOW POSITION WITH BEDRAILS UP X2. CALL EVANS WITHIN REACH, AGREES TO CALL PRN.
--- NOTE | 2020-03-01 01:11 | NUR ---
PT APPEARS TO BE SLEEPING COMFORTABLY, NO APPARENT DISTRESS, RESPIRATIONS REGULAR AND UNLABORED. PERSONAL ITEMS REMAIN WITHIN REACH. BED REMAINS LOCKED IN LOW POSITION WITH BEDRAILS UP X2. CALL EVANS REMAINS WITHIN REACH.
[2020-03-01 03:26] VITALS: BP 115/66
--- NOTE | 2020-03-01 04:52 | NUR ---
PT RESTING IN BED COMFORTABLY WITH NO APPARENT DISTRESS OR DISCOMFORT. PT DENIES NEEDS AT THIS TIME. ITEMS REMAIN WITHIN REACH, BED REMAINS LOCKED IN LOW POSITION W/ BEDRAILS UP X2.CALL EVANS REMAINS WITHIN REACH, AGREES TO CALL PRN.
[2020-03-01 07:46] VITALS: BP 115/76
[2020-03-01 07:48] VITALS: BP 115/76
--- NOTE | 2020-03-01 08:05 | NUR ---
ASSESSMENT DONE. PT IS A&O X3. PT STATED NO BM YET BUT HAS PASS GAS. PRUINE PROVIDED. PT DENIES PAIN AT THIS TIME. ERASTO PICC IN PLACE. O2 AT 2L VIA NC. PT DENIES ANY NEEDS AT THIS TIME. CALL LIGHT IN REACH.
--- NOTE | 2020-03-01 11:19 | NUR ---
PT IS RESTING IN BED WITH NO S/S OF DISTRESS NOTED. PT STATED HE IS WAITING FOR HIS DAUGHTER TO COME VISIT HIM. PT DENIES ANY NEEDS AT THIS TIME. CALL LIGHT IN REACH.
--- NOTE | 2020-03-01 12:00 | NUR ---
PT HAD A SMALL BM IN BSC. APPLIED NEW AQUACEL IN BUTTOCKS. A STAGE 2 UCLER IN BUTTOCKS HEALING. PT DENIES ANY OTHER NEEDS AT THIS TIME. CALL LIGHT IN REACH.
--- NOTE | 2020-03-01 14:30 | NUR ---
Discharge instructions given. Patient verbalizes understanding of same. Discharged in stable condition via Medical Transport to with staff. All belongings sent with pt.
--- NOTE | 2020-03-01 15:00 | NUR ---
REPORT GIVEN TO CHRIS DONNELLY.
--- NOTE | 2020-03-02 07:59 | NUR ---
CALLED [employer] REGARDING THE NETWORK CABLE INSTALLER OF THE [employer] IN [employer]. SPOKE TO NAGI AND WAS GIVEN THE CONFIRMATION NUMBER [id number].
== END 2020-03-01 14:30 | DRG 871 ==
LOC: ED 09:35 → ED-I 10:15 → ED 14:23 → ICU 14:24 → ED-I 14:24 → ICU 14:38 → MS2 02-25 13:35
PROVIDERS: Family Medicine; Internal Medicine; Nurse Practitioner; Nurse Practitioner Family; ADMIT Internal Medicine; ATTEND Internal Medicine
PROC: 02HV33Z Insertion of Infusion Device into Superior Vena Cava, Percutaneous Approach (ICD-10-PCS; principal; 2020-02-11)
PROC: 5A09457 Assistance with Respiratory Ventilation, 24-96 Consecutive Hours, Continuous Positive Airway Pressure (ICD-10-PCS; 2020-02-13)
PROC: 30233N1 Transfusion of Nonautologous Red Blood Cells into Peripheral Vein, Percutaneous Approach (ICD-10-PCS; 2020-02-20)
PROC: 02HV33Z Insertion of Infusion Device into Superior Vena Cava, Percutaneous Approach (ICD-10-PCS; 2020-02-21)
PROC: B518ZZA Fluoroscopy of Superior Vena Cava, Guidance (ICD-10-PCS; 2020-02-21)
DX: A41.52 Sepsis due to Pseudomonas (principal); J18.9 Pneumonia, unspecified organism; R65.21 Severe sepsis with septic shock; I50.23 Acute on chronic systolic (congestive) heart failure; J96.22 Acute and chronic respiratory failure with hypercapnia; J96.21 Acute and chronic respiratory failure with hypoxia; J44.0 Chronic obstructive pulmonary disease with (acute) lower respiratory infection; C91.10 Chronic lymphocytic leukemia of B-cell type not having achieved remission; C34.90 Malignant neoplasm of unspecified part of unspecified bronchus or lung; I48.19 Other persistent atrial fibrillation; E87.2 Acidosis; E87.3 Alkalosis; I11.0 Hypertensive heart disease with heart failure; K12.1 Other forms of stomatitis; T46.1X1A Poisoning by calcium-channel blockers, accidental (unintentional), initial encounter; I95.2 Hypotension due to drugs; I25.10 Atherosclerotic heart disease of native coronary artery without angina pectoris; D50.9 Iron deficiency anemia, unspecified; D63.8 Anemia in other chronic diseases classified elsewhere; M46.46 Discitis, unspecified, lumbar region; I25.2 Old myocardial infarction; T45.516A Underdosing of anticoagulants, initial encounter; Z91.128 Patient's intentional underdosing of medication regimen for other reason; Z91.81 History of falling; Z99.81 Dependence on supplemental oxygen; Z95.5 Presence of coronary angioplasty implant and graft; Z88.0 Allergy status to penicillin; Z79.899 Other long term (current) drug therapy; Z87.891 Personal history of nicotine dependence; Z20.828 Contact with and (suspected) exposure to other viral communicable diseases
CPT/HCPCS: A9579; J0692; J1160; J1650; J2060; J3370; P9016; Q3014